=== PATIENT | female | born 1980 | race Caucasian/White ===

== ENCOUNTER 2021-10-07 23:38 | Inpatient (IN) ==
[2021-10-08] MEDS ORDERED: KETOROLAC TROMETHAMINE 60 MG/2 ML VIAL IM STA (00:43)
[2021-10-08 01:34] LABS: Amphetamines+Metham, Urine Pos (Neg); Barbiturates, Urine Neg (Neg); Benzodiazepine, Urine Neg (Neg); Cocaine, Urine Neg (Neg); MDMA (Ecstacy), Urine Neg (Neg); Methadone, Urine Neg (Neg); Opiate, Urine Neg (Neg); Phencyclidine, Urine Neg (Neg)
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
[2021-10-08 02:17] LABS: Appearance Urine Cloudy (Clear); Bacteria Urine Automated Negative (Negative); Blood Urine Negative (Negative); Color Urine Dark Yellow; Epithelial Cell Urine Auto >30 /lpf (0-5); Glucose Urine UA Negative (Negative); Ketones Urine Trace (Negative); Leukocyte Esterase Urine Trace (Negative); Nitrite Urine Negative (Negative); Protein Urine 2+ (Negative); RBC Urine Automated 0-4 /hpf (0-4); Specific Gravity Urine 1.034 (1.000-1.030); Urobilinogen Urine Negative (Negative)
[2021-10-08 02:22] LABS: Bilirubin Urine 1+ (Negative)
[2021-10-08 02:35] LABS: Cast Urine Automated >30 /lpf (0-5)
[2021-10-08] MEDS ORDERED: HYDROmorphone INJ 1 MG/ML SYRINGE IV STA (02:51)
[2021-10-08 03:52] LABS: INR 1.5 (0.9-1.1); Partial Thromboplastin Ratio 1.5; Partial Thromboplastin Time 38.9 Seconds (21.0-31.0)
[2021-10-08 04:08] LABS: Anisocytosis Present; Echinocytes 1+; Eosinophils # (auto) 0.04 K/uL (0-0.5); Eosinophils % (auto) 0.9 %; Hematocrit (blood only) 28.4 % (37-47); Hemoglobin 8.7 g/dL (12.0-16.0); Hypochromasia Present; Immature Granulocytes # (auto) 0.04 K/uL (0.00-0.02); Immature Granulocytes % (auto) 0.9 %; Lymphocytes # (auto) 0.43 K/uL (1.2-3.4); Lymphocytes % (auto) 9.3 %; Mean Corpuscular Hemoglobin 24.2 pg (25-34); Mean Corpuscular Hgb Conc 30.6 g/dL (32-36); Mean Corpuscular Volume 79.1 fL (80-100); Monocytes # (auto) 0.24 K/uL (0.11-0.59); Monocytes % (auto) 5.2 %; Neutrophils # (auto) 3.88 K/uL (1.4-6.5); Neutrophils % (auto) 83.7 %; Platelet Count 18 K/uL (130-400); Platelet Estimate SIGNIFIC DECREASED (Normal); RDW Coefficient of Variation 24.5 % (11.5-14.5); RDW Standard Deviation 70.4 fL (36.4-46.3); Red Blood Count 3.59 M/uL (4.2-5.4); Tear Drop Cells 1+; White Blood Count 4.63 K/uL (4.8-10.8)
[2021-10-08] MEDS ORDERED: VANCOMYCIN CONSULT ACTIVE PRN (04:11)
[2021-10-08] MEDS ORDERED: VANCOMYCIN HCL 2,250 MG in SODIUM CHLORIDE 0.9% 500 ML IV ONE (04:11)
[2021-10-08] MEDS ORDERED: SODIUM CHLORIDE 0.9% 1000ML 1,000 ML IV ONE (04:11)
[2021-10-08 04:12] LABS: Alanine Aminotransferase 14 (12-78); Albumin Globulin Ratio 0.4 (0.9-2); Albumin Level 1.7 gm/dl (3.4-5.0); Alkaline Phosphatase 196 U/L (45-117); Aspartate Aminotransferase 25 U/L (15-37); BUN Creatinine Ratio 23.3 (10-20); Bilirubin,Total 1.1 mg/dl (0.2-1); Blood Urea Nitrogen 35 mg/dl (7-18); Calcium 8.6 mg/dl (8.5-10.1); Carbon Dioxide 21 mmol/L (21-32); Chloride 112 mmol/L (98-107); Creatinine Clr Calc Pharmacy 59.9 ml/min; Est GFR (African American) 50.1 ml/min; Est GFR (Non-African American) 43.2 ml/min; Globulin 4.6 gm/dl (2.5-4.0); Glucose 112 mg/dl (70-99); Magnesium 1.8 mg/dl (1.8-2.4); Potassium 2.4 mmol/L (3.5-5.1); Sodium 140 mmol/L (136-145); Total Protein 6.3 gm/dl (6.4-8.2); Troponin I < 0.015 ng/ml (0-0.045)
[2021-10-08] MEDS: POTASSIUM CHLORIDE / WTR 10 MEQ/100 ML PLCT IV SCH ×6 (04:25→12:59)
[2021-10-08] MEDS ORDERED: ONDANSETRON INJ 2 MG/ML 2 ML VIAL IV PRN (05:14)
[2021-10-08] MEDS ORDERED: ENOXAPARIN INJ 40 MG/0.4 ML SYR SQ SCH (05:14)
[2021-10-08] MEDS ORDERED: NITROGLYCERIN SL 0.4 MG/TAB TAB SL PRN (05:14)
[2021-10-08] MEDS ORDERED: POLYETHYLENE (MIRALAX) 17 GM PACK PO PRN (05:14)
[2021-10-08] MEDS: ceFAZolin 2000MG 2,000 MG/15 ML SYR IV SCH ×3 (06:13→22:24)
[2021-10-08] MEDS: SODIUM CHLORIDE 0.9% 1000ML 1,000 ML IV SCH ×2 (06:17→16:37)
--- NOTE | 2021-10-08 06:23 | Pharmacy Report ---
Pharmacy Abx Initial Consult - Date of Service October 08, 2021 - Pharmacy Dosing Scope Date of Consult: 10/08/21 Consultation requested by: Dr. Chiang Pharmacy is consulted to initiate Vancomycin IV dosing therapy, order appropriate labs and adjust drug dose/frequency. - Subjective The patient is a 40 year old F admitted on 10/08/21 04:39. - Objective Height: 5 ft 9 in Weight: 92.3 kg Vital Signs (Past 12hrs): Vital Signs Temp Pulse Pulse Resp BP BP Pulse Ox 10/08/21 05:56 104 H 93 10/08/21 05:28 107 H 160/85 H 92 10/08/21 04:20 93 10/08/21 03:25 100 H 95 10/08/21 02:30 95 10/08/21 02:05 100 H 95 10/08/21 01:08 13 L 97 10/07/21 23:42 36.8 C 101 H 18 92/58 L 97 Lab Results (24hrs): Laboratory Tests (24 Hours) 10/08/21 10/08/21 10/08/21 03:12 03:12 03:12 WBC 4.63 L Neut # (Auto) 3.88 Creatinine 1.48 H Est Cr Clr Drug Dosing 59.9 Procalcitonin > 200.00 H Micro Results: 10/08/21 03:31 Aerobic Blood Culture - Pending Blood Anaerobic Blood Culture - Pending 10/08/21 03:12 Aerobic Blood Culture - Pending Blood Anaerobic Blood Culture - Pending 10/08/21 Unknown Urine Culture - Pending Urine,Clean Catch - Risk Factors for Resistance * Hospitalization for 48 hours or more within the past 90 days * History of infection with a multidrug-resistant organism: Endocarditis, August 2021, [facility] * Antimicrobial use within the last 90 days - Assessment & Plan Assessment 40 year old F admitted 10/08 for treatment of possible endocarditis. Ordered Cefazolin + Vancomycin. Plan Vancomycin IV * Estimated PK Parameters: Vd 0.7 L/kg, Johny 0.054 hr-1, t1/2 ~13 hr * Loading dose: 2250mg (24 mg/kg) * Maintenance dose: 1500mg IV (16 mg/kg) every 18 hours * Goal trough level for ENDOCARDITIS : 15 to 20 mcg/mL * Trough level ordered for 10/10/21 @ 1130 * Scr is elevated at 1.48, however baseline Scr is unknown. Will monitor and adjust Vancomycin dosing if renal function improves. Pharmacy will continue to follow and will adjust dose/frequency as necessary. Thank you.
[2021-10-08] MEDS ORDERED: POTASSIUM CHLORIDE CRTAB 20 MEQ TABCR PO STA (07:13)
--- NOTE | 2021-10-08 07:39 | XRay Report ---
RIGHT WRIST 4 VIEWS HISTORY: Right wrist pain COMPARISON: None. FINDINGS: There is no fracture or dislocation. Mild soft tissue swelling. No erosive changes. Mild ca rtilage space narrowing at the radiocarpal joint consistent with degenerative change. No radiopaque f oreign bodies. IMPRESSION: Mild soft tissue swelling within the right wrist. No fractures. ACT 112: Negative or not required by law. Electronically signed by: Aaron Ojeda M.D. 10/08/2021 7:37 AM
--- NOTE | 2021-10-08 07:40 | XRay Report ---
XR chest 1V portable HISTORY: SEPSIS COMPARISON: None. FINDINGS: No pneumothorax. No pleural effusions. The heart is normal in size. There are low lung volu mes. There are few scattered patchy and linear airspace opacities within the mid to lower lung zones. IMPRESSION: A few scattered patchy and linear airspace opacities within the mid to lower lung zones. This favors a viral pneumonia. ACT 112: Negative or not required by law. Electronically signed by: Aaron Ojeda M.D. 10/08/2021 7:39 AM
[2021-10-08] MEDS: BUPRENORPHINE/NALOXONE 8/2 MG TAB SL SCH (08:43)
--- NOTE | 2021-10-08 10:01 | History and Physical Report ---
DATE OF ADMISSION: 10/08/2021. CHIEF COMPLAINT: Endocarditis , complaining of generalized pain. 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 The patient was recently in [facility] from 09/12/2021 to 09/20/2021. The patient has COVID pneumonia about couple of months ago. She was presented to [facility] on 08/30/2021 with hemoptysis and shortness of breath and found to have severe sepsis and acute hypoxic respiratory failure requiring supplemental oxygen, found to have pneumonia, she was started on vancomycin and cefepime, which was eventually changed to cefazolin as she was found to have MSSA bacteremia. She developed a tension pneumothorax requiring left chest tube placement on 09/03/2021-09/08/2021, right Chest tube was placed for loculated right effusion (empyema)on 09/08/2010, and she was transferred to [place]. ID was consulted and RODRIGUEZ was done, as patinet had MSSA bacteremia and septic emboli on CT scan. RODRIGUEZ showed a large complex multilobar regurgitation tricuspid wall, CT surgery consulted . Underwent repeat chest tube placed by Thoracic Surgery and right chest tube was pulled off. At that time, blood cultures had no growth. ID recommended IV cefazolin until 10/19/2021, but the patient left AMA. As the patient left A, she was discharged on Keflex and rifampin and she presented to [facility] yesterday because of her back pain and leg pain and chronic pain. The labs done yesterday in [place] showed significant thrombocytopenia, platelets of only 12. Seems she has chronic anemia. She complained of shortness of breath and chest pain, severe body aches, subjective fevers and chills, but as she was not getting pain medications she signed out AMA and daughter brought her in [facility] and left patient here and daughter left. The patient lives with her daughter. The patient complains of chronic pain and asking for pain medications. She is okay to take her home pain medication of Suboxone. She says she has some palpitations, shortness of breath. Denies any headache. No blurred visions, no earache, no runny nose, no sore throat. Appetite is not that great. Currently, no chest pain, no nausea, no abdominal pain, normal bowel and bladder movements. Somewhat constipated. She has chronic wound in lower extremity, dressing is placed in [facility]. As per the [facility], the [place] blood cultures again came back positive for gram-positive cocci in clusters.ER in [place] contacted [place] ID probably before blood cultures and recommended to continue the Ancef and give a dose of vancomycin. Currently hemodynamically stable.Patinet also complaining of right wrist pain. ALLERGIES: TYLENOL, METHADONE. PAST MEDICAL HISTORY: As mentioned above. PAST SURGICAL HISTORY: , repair slipped epiphysis/ fixation. MEDICATIONS: Suboxone 1.5 tablet sublingual daily, rifampin 600 mg p.o. b.i.d., supposed to be on Keflex, but it seems she is not taking it. FAMILY HISTORY: Significant for father has heartburn, hypertension, emphysema. Mother has narcolepsy, hypertension. Maternal grandfather had diabetes, heart disorder, hypertension. Paternal grandmother had hypertension. SOCIAL HISTORY: , currently lives with daughter. Smokes half pack a day for last 13 years. No alcohol use. No drugs currently. The patient has history of IV drugs. PHYSICAL EXAMINATION: GENERAL: The patient is alert and oriented, not complaining of pain. VITAL SIGNS: Temperature 36.8, pulse 104, respiratory rate 18, blood pressure 160/85, oxygen 93% on room air. HEENT: Pupils equal, round and reactive to light. Oral mucosa dry. NECK: No JVD, no neck masses. CARDIOVASCULAR: S1 and S2 heard, regular rate and rhythm. No murmur, no gallop. RESPIRATORY SYSTEM: Normal AP diameter. No accessory muscle use. No wheezing, no crackles. ABDOMEN: Soft, bowel sounds present, nontender, nondistended. CENTRAL NERVOUS SYSTEM: Cranial nerves II-XII grossly intact, nonfocal. EXTREMITIES: Lower extremity wounds are placed in dressing, has erythematous changes in the bilateral upper arms. LABORATORY DATA: WBC 4.6, hemoglobin 8.7, hematocrit 28.4, platelets 218. PT 15, INR 1.5, hematocrit 38.9. Sodium 140, potassium 2.4, chloride 112, CO2 of 21, BUN 35, creatinine 1.4, serum glucose 112. Lactate 1.5, calcium 8.6, magnesium 1.8, total bilirubin 1.1, AST 25, ALT 14, alkaline phosphatase 196. Troponin I less than 0.015. Procalcitonin greater than 200. Urinalysis, ketones. Drug screen positive for methamphetamines, marijuana. SARS-CoV-2 negative. Chest x-ray, bibasilar infiltrates. wrist x-ray results pending. EKG: Sinus tachycardia at a rate of 105, possible left atrial enlargement, right bundle-branch block at a rate of 105. ASSESSMENT AND PLAN: This is a 40-year-old female who recently diagnosed with endocarditis, seems to be noncompliant with medications, comes with shortness of breath and generalized body ache. 1. Recent endocarditis with vegetations of tricuspid valve l, history of IV drug abuse, septic emboli on CAT scan, empyema requiring chest tube recently, signed out AMA from the [facility] on 09/26/2021, supposed to be on IV antibiotics until 10/27/2021, but as she signed out AMA was discharged on Keflex and rifampin. Initially seems did not get rifampin, but then she currently she is taking rifampin. Patientsays she is on Keflex but doubt she is taking it. Now she is having thrombocytopenia, etiology possibly from ongoing infection or possibly from antibiotics, placed on cefazolin and vancomycin. Blood culture drawn again at [facility] showing gram- positive in clusters. ID consulted for antibiotics recommendation, also Cardiology consulted. Closely monitor in the tele floor. 2. Thrombocytopenia, etiology unclear, possibly from antibiotic rifampin, which will be held, currently getting cefazolin and vancomycin. Closely monitor with the labs. May need to discuss with Heme/Onc. 3. Anemia seems to be chronic. Leukopenia, also is something that is new possibly from ongoing infection or antibiotic.. No need to discuss with Heme/Onc. We will check stool for Hemoccult and iron studies, vitamin B12 studies. 4. Hypokalemia. K 2.4 We will replace.Follow reepat labs later today. 5. Acute kidney injury. Creatinine 1.4. Getting fluids, avoid nephrotoxic agents. We will follow the labs. 6. Chronic pain. Continue her home Suboxone. 7. Right upper fore arm and wrist and hand pain. Consulted orthopedics. Follow wrist xray.Consider dopplers. 8. Lower extremity wounds. Wound care consult. Antibiotics as above. Patient says she developed wounds about 3 yrs ago after reaction to calcium supplements. But says she recently only started to see wound care. 9. Deep venous thrombosis prophylaxis. SCDs, patient has thrombocytopenia. DISPOSITION: Closely monitor in tele floor. Level 1 full code. To be determined. Social Service to help with discharge. Job ID: [id number] [facility]
[2021-10-08 10:53] LABS: Reticulocyte % < 0.5 % (0.5-2.0); Reticulocytes # < 0.02 10^6/uL (0.02-0.10)
--- NOTE | 2021-10-08 13:48 | Cardiology Consultation ---
Date of Consultation October 08, 2021 Assessment & Plan (1) Infective endocarditis of tricuspid valve: (2) Pancytopenia: (3) Acute renal insufficiency: (4) Hypokalemia: 40-year-old female with history of tricuspid valve endocarditis with chest and back discomfort. Noncompliant with medical therapies. Pancytopenia possibly related to underlying infectious process or rifampin. Repeat blood culture drawn yesterday demonstrating gram-positive cocci in clusters. Continue antibiotics as per ID recommendations noted below. With recurrent staph bacteremia, patient will require an additional 6 weeks of IV antibiotic therapy. Infectious disease recommendations (Dr. Duncan) per review of [facility] medical record 10/07/2020: Treat with vancomycin and Ancef. With evidence of recurrent likely staph bacteremia. Recommend repeat 2D transthoracic echocardiogram. Consider repeat CT of the chest when renal function has improved. Follow CBC closely. Consider hematology consultation. History of Present Illness Reason for Consultation: Endocarditis Requesting Physician: Dr. Veloz Attending Physician: Jennifer Veloz MD History of Present Illness 40-year-old female present to the emergency department with chest and back pain. Seen at the emergency department in [place] 10/07/2021 for similar complaints. She left AGAINST MEDICAL ADVICE because she felt her pain was not being treated appropriately. She was recently hospitalized in August at [facility] due to tricuspid valve endocarditis. She left [facility] AGAINST MEDICAL ADVICE because she felt she needed to spend the holidays with her family. She was discharged on oral antibiotics. Patient seen and examined at the bedside. Somewhat sedated due to pain medication. She is a poor historian. Treated with IV Toradol and Dilaudid in the ER. Denies any chest or back discomfort currently. CBC on admission demonstrating pancytopenia and severe thrombocytopenia. No signs/symptoms of GI/ bleeding. X-ray demonstrating bilateral linear opacities suggestive of v iral pneumonia. Allergies Allergy/AdvReac Type Severity Reaction Status Date / Time acetaminophen [From Tylenol] AdvReac Intermediate Vomiting Verified 10/08/21 00:08 methadone AdvReac Intermediate Vomiting Verified 10/08/21 00:08 Home Medications Medication Instructions Recorded Confirmed Type buprenorphine 8 mg-naloxone 2 mg 1.5 tab SUBLINGUAL DAILY 10/08/21 10/08/21 History sublingual tablet rifampin 300 mg capsule 600 mg PO Q12H 10/08/21 10/08/21 History Patient History Medical History (Updated 10/12/21 @ 10:23 by Varghese Lin, DO) Chronic pain syndrome History of tobacco abuse IV drug abuse Opioid use disorder Upper extremity pain, diffuse Bilateral Social History Smoking Status: Current every day smoker Cigarettes Per Day: 30; Second Hand Exposure: No; Do You Dip or Chew Tobacco: No; Tobacco Cessation Education Requested by Patient: No Hx Alcohol Use: No Preferred Language: Luxembourgish Communication Ability: Effective [employer] Required: No Beliefs That Will Affect Care: None Current Living Situation: Family Other Information That Helps Us Care for You: No Feels Safe at Home: Yes Safety Concerns: Feels Safe At This Time Assistive Devices: Oxygen - Continuous Review of Systems Review of Systems: All systems reviewed & are unremarkable except as noted in Subjective Physical Exam Constitutional: + ill appearing, + intoxicated appearing and + disheveled Respiratory: normal respiratory effort; no respiratory distress, no labored breathing and no retractions Auscultation: lungs clear to auscultation bilaterally; no crackles, no rales, no rhonchi and no wheezes Cardiovascular: Rate/Rhythm: regular rate and regular rhythm Heart Sounds: normal S1 and normal S2; no murmur Vessels: no JVD and no carotid bruit Gastrointestinal (Abdomen): Inspection/Auscultation: abdomen normal to inspection and normal bowel sounds; abdomen not distended Percussion/Palpation: abdomen soft; abdomen nontender, no guarding and abdomen not rigid Neurologic: moves all extremities; no focal motor deficits Motor/Sensory: no tremor Psychiatric: Affect: + irritable affect Results & Data ([facility]) Vital Signs (Past 12 Hours) Vital Signs Temp Pulse Pulse Resp BP Pulse Ox 10/08/21 12:08 36.8 C 72 18 119/75 98 10/08/21 08:24 36.5 C 98 H 16 103/60 97 10/08/21 07:57 103 H 10/08/21 05:56 104 H 93 10/08/21 05:28 107 H 160/85 H 92 10/08/21 04:20 93 10/08/21 03:25 100 H 95 10/08/21 02:30 95 10/08/21 02:05 100 H 95 Laboratory Results Preliminary blood culture report [facility] 10/07/2021: Gram-positive cocci in clusters Blood culture final report [facility] 09/03/2021: Staph aureus - MSSA Diagnostic Findings Transesophageal echocardiogram [facility] report summary 09/14/2021: The qualitative LV ejection fraction is 60-64% (normal). No LV segmental wall motion abnormalities. A large, complex, multi-lobed vegetation, around 2.2. cm x 2.0 cm in size, with multiple mobile components, seen attached to all tricupid leaflets. Mild to moderate tricuspid regurgitation is present. Study had to be terminated early as patient was unable to tolerate the probe even with adequate sedation. CT chest [facility] report 09/14/21: 1. Small low density probable simple right pleural effusion, decreased in size compared to 09/07/2021. The right pleural catheter is coiled in the right lower lobe adjacent to the pleural effusion. 2. Persistent small left pleural effusion. 3. Similar multifocal cavitary lesions, consistent with extensive bilateral septic emboli.
--- NOTE | 2021-10-08 16:07 | Communication Note ---
Date of Service: October 08, 2021 40-year-old old female with significant past medical history of IV drug abuse, septic embolism with endocarditis, bilateral leg cellulitis with multiple open wounds, history of CVA and also hepatitis C carrier and other medical conditions as mentioned in H&P has been admitted into this hospital with generalized pain. Recently she signed out AMA from [facility] and also latest from [facility]. She is screaming with pain and usual pain medications including ibuprofen, Tylenol and Suboxone that she has been one is not controlling the pain. She has significant lab abnormalities including pancytopenia and severe thrombocytopenia. She will be given intravenous Dilaudid every 6 hourly and pain management consultation will be sought for ongoing management of her chronic pain. Full progress note will be done tomorrow. Dr Armani Veloz
[2021-10-08 16:10] LABS: BUN Creatinine Ratio 21.3 (10-20); Calcium 8.7 mg/dl (8.5-10.1); Creatinine Clr Calc Pharmacy 62.3 ml/min; Est GFR (African American) 49.7 ml/min; Est GFR (Non-African American) 42.9 ml/min; Potassium 3.5 mmol/L (3.5-5.1)
[2021-10-08] MEDS: HYDROmorphone INJ 0.5 MG/0.5 ML SYR IV PRN ×2 (16:35→22:42)
--- NOTE | 2021-10-08 19:20 | Consultation Report ---
ORTHOPEDIC SURGERY CONSULTATION DATE OF SERVICE: 10/08/2021 SPECIAL ATTENTION TO: Bilateral hand pain. HISTORY OF PRESENT ILLNESS: This is a 40-year-old female who was admitted through the Emergency Department. She has a history of intravenous drug use and was seen at [facility] in the past 24 hours. She had a workup, but left AMA because they felt they were not treating her pain appropriately. She has been recently admitted to [facility] in 08/2021 for infectious endocarditis and tricuspid valve vegetation. She left AMA as well there. She has complaints of a global pain in the upper extremities, in the right wrist and left antecubital fossa. PHYSICAL EXAMINATION: Left elbow exam does show evidence of track santacruz and evidence of intravenous drug use. She has no evidence of abscess in the elbow or antecubital fossa. Right forearm exam, compartments are soft Right wrist exam, she has supple range of motion of the wrist without pain or tenderness. She has no swelling or effusion. I do not see gross evidence of infection in the wrist or the flexor tendons. Right hand exam shows erythema at the tips of her fingers. She has no evidence of Janeway lesions, but she does have occasional petechiae in the fingers and Osler nodes in the pulp of the fingers. I did not detect gross evidence of abscess. She has 2+ capillary refill. Left elbow examination shows no evidence of abscess or fluctuance. Left forearm examination, compartments are soft. Left wrist exam shows no evidence of septic wrist. She has supple range of motion of the wrist without swelling or effusion. Left hand exam does show mild erythema of the digits. Occasional Osler nodes and petechiae are seen consistent with infectious endocarditis. X RAYS: 3 views of the right wrist are negative for fracture, dislocation, infection, gas in the soft tissue and other pathology. ASSESSMENT: Diffuse upper extremity pain, likely due to infectious endocarditis. PLAN: Physical findings are consistent with infectious endocarditis with petechiae and Osler nodes in the fingers. I do not see any acute surgical indications and I feel it is unlikely she has acute infection in the hand, wrist, or forearm requiring any urgent surgical intervention. Recommendation is for continued treatment for infectious endocarditis. We will sign off. Please call if you have any further questions or concerns. Job ID: [id number] [facility]
[2021-10-08] MEDS: DICLOFENAC SOD 1% GEL 100 GM TUBE EXT SCH (20:05)
[2021-10-09] MEDS ORDERED: VANCOMYCIN HCL 1,500 MG in SODIUM CHLORIDE 0.9% 500 ML IV SCH
[2021-10-09] MEDS: ceFAZolin 2000MG 2,000 MG/15 ML SYR IV SCH ×3 (05:38→21:32)
--- NOTE | 2021-10-09 06:01 | Electrocardiogram Report ---
Test Reason : Blood Pressure : / mmHG Vent. Rate : 105 BPM Atrial Rate : 105 BPM P-R Int : 148 ms QRS Dur : 136 ms QT Int : 402 ms P-R-T Axes : 067 -34 092 degrees QTc Int : 531 ms Poor data quality, interpretation may be adversely affected Sinus tachycardia Possible Left atrial enlargement Indeterminate axis Right bundle branch block Abnormal ECG No previous ECGs available Confirmed by Shaheen Lora ([id number]) on 10/09/2021 6:01:07 AM Referred By: REFERRED SELF Confirmed By:Shaheen Lora
[2021-10-09] MEDS: HYDROmorphone INJ 0.5 MG/0.5 ML SYR IV PRN ×3 (06:21→23:59)
--- NOTE | 2021-10-09 07:19 | Ultrasound Report ---
BILATERAL LOWER EXTREMITY VENOUS DOPPLER CLINICAL HISTORY: Lower extremity edema. Evaluate for deep venous thrombus. COMPARISON STUDY: No previous studies for comparison. TECHNIQUE: Sonography of the deep venous system of the bilateral lower extremities was performed. Co mpression and augmentation were evaluated. FINDINGS: This exam is compromised by suboptimal visualization due to wounds. Therefore, the right co mmon femoral, greater saphenous, profunda and distal calf vessels are not well visualized. In additio n, the left calf vessels were not well visualized. No deep venous thrombus is identified within visua lized vessels. IMPRESSION: Exam significantly compromised from a technical standpoint. However, no deep venous throm bus identified within the lower extremities. ACT 112: Negative or not required by law. Electronically signed by: Rayray Jamison M.D. 10/09/2021 7:18 AM
[2021-10-09 08:22] LABS: Mean Corpuscular Hemoglobin 23.8 pg (25-34); Mean Corpuscular Volume 77.4 fL (80-100); Platelet Count 24 K/uL (130-400); RDW Coefficient of Variation 25.2 % (11.5-14.5); RDW Standard Deviation 70.7 fL (36.4-46.3); Red Blood Count 3.36 M/uL (4.2-5.4)
[2021-10-09 08:44] LABS: ALC (manual) 0.31 K/uL (1.2-3.4); ANC (manual) 8.65 K/uL (1.4-6.5); Eosinophils # (manual) 0.21 K/uL (0-0.5); Lymphocytes # (manual) 0.31 K/uL (1.2-3.4); Mean Corpuscular Hgb Conc 30.8 g/dL (32-36); Metamyelocytes # (manual) 0.21 K/uL (0-0); Monocytes # (manual) 0.62 K/uL (0.11-0.59); Myelocytes # (manual) 0.31 K/uL (0-0); Neutrophils # (manual) 8.65 K/uL (1.4-6.5)
[2021-10-09] MEDS: BUPRENORPHINE/NALOXONE 8/2 MG TAB SL SCH (08:58)
[2021-10-09] MEDS: DICLOFENAC SOD 1% GEL 100 GM TUBE EXT SCH ×2 (08:59→21:31)
[2021-10-09 09:18] LABS: INR 1.3 (0.9-1.1); Prothrombin Time 12.6 Seconds (9.0-12.0)
[2021-10-09 09:18] LABS: Folate (Folic Acid) > 20.00 ng/ml (>5.38); Vitamin B12 > 2000 pg/ml (193-986)
[2021-10-09 09:33] LABS: Albumin Globulin Ratio 0.3 (0.9-2); Albumin Level 1.7 gm/dl (3.4-5.0); BUN Creatinine Ratio 27.9 (10-20); Bilirubin,Total 0.8 mg/dl (0.2-1); Calcium 8.9 mg/dl (8.5-10.1); Est GFR (African American) 102.3 ml/min; Est GFR (Non-African American) 88.3 ml/min; Ferritin 515.6 ng/ml (8-388); Magnesium 2.1 mg/dl (1.8-2.4); Phosphorus 3.2 mg/dl (2.5-4.9); Total Protein 6.7 gm/dl (6.4-8.2)
--- NOTE | 2021-10-09 09:57 | Pain Management Consultation ---
Date of Consultation October 09, 2021 Assessment & Plan (1) Chronic pain syndrome: (2) Opioid use disorder: (3) Infective endocarditis of tricuspid valve: (4) Upper extremity pain, diffuse: 1. PDMP was reviewed and shows 1 prescriber with varying amount of Suboxone tablets over the last few months and 1 consistent pharmacy. Recommend she follow-up with her Suboxone prescriber as an outpatient once discharged. 2. Recommend increasing Suboxone 8/2 to 2 tablets daily. 3. Recommend utilization of Remeron 15 mg p.o. q. at bedtime and clonidine 0.1 mg p.o. every 8 as needed. 4. Recommend Lidoderm patch as needed patient desire over 1-2 areas of discomfort. 5. No plans for interventional pain management at this time. 6. The patient's orthopedic complaints have already been assessed by orthopedics and would defer to them for further work-up if required. 7. Thank you for this consultation please call with any questions. Pain management will sign off. History of Present Illness Attending Physician: Jennifer Veloz MD History of Present Illness 40-year-old female with a past medical history significant for recent septic embolism with endocarditis of tricuspid valve, cellulitis of leg with multiple open wounds on the lower legs, history of CVA, sepsis, hepatitis C carrier, opioid abuse in remission presented to the hospital yesterday 10/08/2021 after her daughter dropped her off in the emergency room. The patient states that she has had significant pain (10 out of 10) over bilateral shoulders to her fingertips for the last week. She denies trauma as to etiology. She denies denies any true radicular symptoms or neck pain. She states simply " it feels like my arms are being pulled apart." She has unable to quantify pain further than that. She denies any dropping of items motor weakness bowel or bladder incontinence or falls. She has been admitted at [facility] in [place] recently as per H&P. She typically follows with [facility] for Suboxone and has been on 1-1/2 tablets but states she has not followed up with her typical physician recently due to being admitted and multiple different hospitals. PDMP was reviewed and appears she has consistent prescriber with varying amounts of tablets of Suboxone 8/2 tablets. She has been consistently utilizing her IV hydromorphone during the hospitalization without benefit. Pain Assessment Full Body Front + Back: 1. 2. [facility] Combined Pain Scale: 10-Worst Imaginable - Paralyzing. Decreased consciousness due to pain. Allergies Allergy/AdvReac Type Severity Reaction Status Date / Time acetaminophen [From Tylenol] AdvReac Intermediate Vomiting Verified 10/08/21 00:08 methadone AdvReac Intermediate Vomiting Verified 10/08/21 00:08 Home Medications Medication Instructions Recorded Confirmed Type buprenorphine 8 mg-naloxone 2 mg 1.5 tab SUBLINGUAL DAILY 10/08/21 10/08/21 History sublingual tablet rifampin 300 mg capsule 600 mg PO Q12H 10/08/21 10/08/21 History Patient History Medical History (Updated 10/09/21 @ 10:09 by Milagro Kathleen DO) Chronic pain syndrome IV drug abuse Opioid use disorder Upper extremity pain, diffuse Bilateral Social History Smoking Status: Current every day smoker Cigarettes Per Day: 30; Second Hand Exposure: No; Do You Dip or Chew Tobacco: No; Tobacco Cessation Education Requested by Patient: No Hx Alcohol Use: No Preferred Language: Syriac Communication Ability: Effective Nuisance Wildlife Specialist Required: No Beliefs That Will Affect Care: None Current Living Situation: Family Other Information That Helps Us Care for You: No Feels Safe at Home: Yes Safety Concerns: Feels Safe At This Time Assistive Devices: None Physical Exam Physical Exam: Constitutional: Well-developed, ill-appearing, deconditioned Psych: Awake, alert, and oriented 3 irritable on examination and slightly uncooperative with exam Eyes: Pupils are equally round and reactive to light with slightly constricted pupils approximately 3 mm, eyelids appear normal Ear, nose, mouth, and throat: Moist nasal and oral membranes, lips and tongues appear normal, no external ear abnormalities are noted Neck: The trachea is midline without deviation Respiratory: Tachypneic on examination CV: Normal S1 and S2 Musculoskeletal: Head is normocephalic and atraumatic, gait not observed Cervical: Lordotic curve: Normal Range of motion is normal with extension, flexion, side-bending, rotation Strength: Strength is difficult to assess secondary to patient cooperation Sensation of upper extremities: Intact bilaterally Myofascial spasm: No appreciable spasm. No discrete trigger points noted Skin: Multiple track santacruz noted over bilateral upper extremities with some edema noted Neuro: No nystagmus noted, the tongue is midline, the patient is able to rotate their head bilaterally Shoulder: Patient with significant allodynia to light touch even with light touch of her gown. She retracts bilateral upper extremities when approaching her upper arms. She states she is not willing to move her bilateral upper extremities therefore range of motion is difficult to assess. Upon palpation bilateral upper extremities are soft. She is agreeable to move her arms from her elbows to her fingertips. This is within normal limits. Results (Pain Clinic) Diagnostic Review Radiology: reports reviewed and findings discussed with patient Radiology Findings: 10/08/21 RIGHT WRIST 4 VIEWS HISTORY: Right wrist pain COMPARISON: None. FINDINGS: There is no fracture or dislocation. Mild soft tissue swelling. No erosive changes. Mild cartilage space narrowing at the radiocarpal joint consistent with degenerative change. No radiopaque foreign bodies. IMPRESSION: Mild soft tissue swelling within the right wrist. No fractures. 10/08/21 XR chest 1V portable HISTORY: SEPSIS COMPARISON: None. FINDINGS: No pneumothorax. No pleural effusions. The heart is normal in size. There are low lung volumes. There are few scattered patchy and linear airspace opacities within the mid to lower lung zones. IMPRESSION: A few scattered patchy and linear airspace opacities within the mid to lower lung zones. This favors a viral pneumonia. Other Findings: 10/08/21 BILATERAL LOWER EXTREMITY VENOUS DOPPLER CLINICAL HISTORY: Lower extremity edema. Evaluate for deep venous thrombus. COMPARISON STUDY: No previous studies for comparison. TECHNIQUE: Sonography of the deep venous system of the bilateral lower extremities was performed. Compression and augmentation were evaluated. FINDINGS: This exam is compromised by suboptimal visualization due to wounds. Therefore, the right common femoral, greater saphenous, profunda and distal calf vessels are not well visualized. In addition, the left calf vessels were not well visualized. No deep venous thrombus is identified within visualized vessels. IMPRESSION: Exam significantly compromised from a technical standpoint. However, no deep venous thrombus identified within the lower extremities.
[2021-10-09] MEDS: LIDOCAINE 5% 1 PATCH TD SCH (12:06)
--- NOTE | 2021-10-09 12:45 | Cardiology Progress Note ---
Date of Service October 09, 2021 Assessment & Plan (1) Infective endocarditis of tricuspid valve: (2) Pancytopenia: (3) Acute renal insufficiency: (4) Hypokalemia: Plan: 40-year-old female with history of tricuspid valve endocarditis with chest and back discomfort. Noncompliant with medical therapies. In August, she presented to [facility] and was transferred to [facility]. watermaster IV antibiotic therapy advised at that time for MSSA TV endocarditis. Pt declined leaving hospital AMA on Keflex and rifampin. Prelim of repeat blood cultur performed in ED at [place] on 10/07/21 reviewed, still in preliminary phase by with findings of GPCs in clusters. Agree with IV ancef. Images of TTE performed at [place] on 10/08/21 reviewed and compared to [facility] from [facility] last month. TV vegetation appears to be smaller on current study (perhaps due to septic embolism to lungs). Pancytopenia including thrombycytopenia noted, possibly related to underlying infectious process or rifampin. Platelet count was normal on 09/07/21 (213 k) , 12K on 10/07/21 and 24 K today, 10/09/21. Admission and Anticipated Discharge Date Admission Date: October 08, 2021 Subjective Pt seen in cardiology follow up. Complains of diffuse body pain. Telemetry reveals sinus tachycardia at 116 pbm. Physical Exam Physical Exam: Temp Pulse Resp BP Pulse Ox 37.1 C 110 H 22 138/83 90 10/09/21 12:21 10/09/21 12:21 10/09/21 12:21 10/09/21 12:21 10/09/21 12:21 Constitutional: chronically ill in appearance Respiratory: decreased BS at the bases Cardiovascular: Rate/Rhythm: regular rate and + tachycardic Heart Sounds: no murmur Extremities: + edema (1+ LE edema ) Musculoskeletal: bilateral LE wounds below the knees, dressed Neurologic: no focal deficits Results & Data ([facility]) Vital Signs (Past 12 Hours) Vital Signs Temp Pulse Resp BP Pulse Ox 10/09/21 12:21 37.1 C 110 H 22 138/83 90 10/09/21 08:19 37.0 C 110 H 24 145/69 H 91 10/09/21 04:33 37.1 C 113 H 20 132/74 92 Laboratory Results Cardiac Enzymes 10/09/21 Range/Units 08:07 AST 26 (15-37) U/L Coagulation 10/09/21 Range/Units 08:43 PT 12.6 H (9.0-12.0) Seconds CBC 10/09/21 Range/Units 08:07 WBC 10.30 (4.8-10.8) K/uL RBC 3.36 L (4.2-5.4) M/uL Hgb 8.0 L (12.0-16.0) g/dL Hct 26.0 L (37-47) % Plt Count 24 L* (130-400) K/uL Comprehensive Metabolic Panel 10/08/21 10/09/21 Range/Units 15:44 08:07 Sodium 140 141 (136-145) mmol/L Potassium 3.5 D 3.0 L (3.5-5.1) mmol/L Chloride 111 H 113 H (98-107) mmol/L Carbon Dioxide 18 L 17 L (21-32) mmol/L BUN 32 H 23 H (7-18) mg/dl Creatinine 1.49 H 0.82 D (0.6-1.2) mg/dl Glucose 126 H 102 H (70-99) mg/dl Calcium 8.7 8.9 (8.5-10.1) mg/dl AST 26 (15-37) U/L ALT 8 L (12-78) Alkaline Phosphatase 196 H (45-117) U/L Total Protein 6.7 (6.4-8.2) gm/dl Albumin 1.7 L (3.4-5.0) gm/dl Intake and Output 10/08/21 10/09/21 10/09/21 22:59 06:59 14:59 Intake Total 1500 / 4495 1930 / 4495 Output Total 550 / 1250 700 / 1250 Balance 950 / 3245 1230 / 3245 Intake: IV 1000 / 3475 1530 / 3475 Sodium Chloride 0.9% 1000ML 1, 1000 / 2000 1000 / 2000 000 ml @ 100 mls/hr IV .Q10H [facility] Rx#:[id number] Vancomycin HCl 1,500 mg In 530 / 530 Sodium Chloride 0.9% 500 ml @ 200 mls/hr IV Q18H [facility] Rx#: [id number] Oral 500 / 1020 400 / 1020 Output: Urine 550 / 1250 700 / 1250 Other: Weight 91.03 kg 92.4 kg Weight Measurement Method Built in [facility]
--- NOTE | 2021-10-09 13:06 | CT Scan Report ---
CT OF THE ABDOMEN AND PELVIS WITHOUT CONTRAST CLINICAL HISTORY: Extremity pain. Infectious endocarditis. COMPARISON STUDY: No previous studies for comparison. TECHNIQUE: Axial images of the abdomen and pelvis were obtained without IV contrast. Images were revi ewed in the axial, sagittal, and coronal planes. Automated exposure control was utilized for the amada dy. A dose lowering technique was utilized adhering to the principles of ALARA. FINDINGS: Small bilateral pleural effusions are noted. Note is made of multifocal groundglass opaciti es within visualized portions of the lower lungs. In addition, there are several nodular subpleural o pacities, the largest which is a 3.3 cm right lower lobe opacity. Evaluation of the abdomen and pelvis is suboptimal on this unenhanced examination. There is body wall edema. Moderate splenomegaly is noted. The liver is also enlarged. No hepatic lesions are identified although sensitivity is diminished on this unenhanced exam. Unenhanced images of the adrenal glands, kidneys and pancreas are unremarkable. There is no biliary or pancreatic ductal dilatation. No hydro nephrosis. There is no evidence for a bowel obstruction. The appendix is normal. Prominent bilateral inguinal lymph nodes are likely reactive. Asymmetric soft tissue thickening along the posterior aspec t of the right ischial tuberosity shown on axial image 495 of 531. This measures 4.3 cm in extent. Th is extends to the underlying bone. No bony destruction is identified by CT. No well-defined fluid col lection is identified although sensitivity is diminished on this unenhanced exam. Note is made of tra nsitional vertebra at the lumbosacral junction which is designated as S1 for purposes of numbering on this exam. S1 is partially lumbarized. When utilizing this numbering scheme, there is moderate to se jose disc space narrowing at L5-S1 with erosion of the inferior endplate of L5 and superior endplate of S1. There is associated paravertebral infiltration. The central canal is suboptimally assessed by CT. Postoperative findings within the proximal bilateral femurs are incidentally noted IMPRESSION: 1. Disc space narrowing at L5-S1 with erosion of the inferior endplate of L5 and superior endplate of S1. The findings are highly suggestive of discitis/osteomyelitis. Associated paravertebral infiltrat ion. MRI of the lumbar spine with and without contrast is recommended to exclude an epidural abscess. This finding will be called/faxed to the ordering provider at time of dictation. Transitional verteb ra at the lumbosacral junction which is designated as S1 for purposes of numbering on this exam. Plea se see above numbering scheme of the lumbar spine. 2. Asymmetric soft tissue thickening along the posterior aspect the right ischial tuberosity which ex tends to the underlying bone. No well-defined fluid collection although sensitivity diminished on thi s unenhanced exam. This favors an infectious process and may reflect phlegmon. No bony destruction by CT. This could be correlated with physical exam to exclude overlying ulcer. 3. Multifocal airspace opacities within the lower lungs. The findings represent an infectious process and could represent viral pneumonia or sequela of septic emboli. 4. Small bilateral pleural effusions. 5. Hepatosplenomegaly. 6. Suboptimal evaluation given motion artifact and lack of IV contrast. ACT 112: Negative or not required by law. Electronically signed by: Rayray Jamison M.D. 10/09/2021 1:04 PM
--- NOTE | 2021-10-09 14:28 | Electrocardiogram Report ---
Test Reason : Blood Pressure : / mmHG Vent. Rate : 106 BPM Atrial Rate : 106 BPM P-R Int : 162 ms QRS Dur : 136 ms QT Int : 362 ms P-R-T Axes : 058 115 091 degrees QTc Int : 480 ms Sinus tachycardia Right bundle branch block Abnormal ECG When compared with ECG of 08-OCT-2021 02:52, No significant change Confirmed by Ubaldo Hanna ([id number]) on 10/09/2021 2:28:34 PM Referred By: REFERRED SELF Confirmed By:Ubaldo Hanna
--- NOTE | 2021-10-09 16:09 | Hospitalist Progress Note ---
Date of Service October 09, 2021 Assessment & Plan (1) Infective endocarditis of tricuspid valve: Plan: Initial diagnosis of MSSA bacteremia on 08/30/2021 with complications of pneumonia required chest tube placement She was transferred to [place] from [facility] and later on [facility] showed large complex multilobar vegetations and tricuspid valve. She was put on intravenous cefazolin (to be taken until 10/19/2021) but signed out AMA and was sent on oral Keflex and rifampicin She showed up in [facility] and signed out AMA to come to [facility] on the day of admission with significant lab abnormalities as mentioned below Started with intravenous cefazolin and vancomycin Blood cultures grew MSSA and vancomycin was stopped ID consultation still pending Appreciate cardiology consult and recommendation She remains reasonably stable Septic emboli Lower lungs with minimal effusion We will continue current antibiotic (2) Pancytopenia: Plan: She was noted to have significant thrombocytopenia since August and noted to be severely thrombocytopenic with pancytopenia during this admission and the lowest her hospital Peripheral blood film did not support any specific diagnosis Suspected to be secondary to severe infection and may be complicated by having hepatitis C and recent use of rifampicin White blood cell count and platelet have been improving but hemoglobin remains low likely secondary to ongoing infection Iron studies are pending and B12 folate remains unremarkable, normal reticulocyte count and normal LDH Discussed with cord tire builder-suggested to have abdominal CAT scan to rule out any splenomegaly and abscess Likely has discitis/osteomyelitis with possible epidural abscess at L5-S1 distribution CT scan of the abdomen and pelvis is supporting that Did show hepatosplenomegaly MRI of the lumbar spine with and without contrast has been ordered to evaluate epidural abscess Orthospine has been consulted for further input and recommendation (3) Chronic pain syndrome: Plan: Has chronic pain and has been on Suboxone Complains to pain at the back, bilateral in the hands with hand swelling and bilaterally in the legs Appreciate Ortho input and recommendation for hand swelling and pain Appreciate pain therapy input and recommendation Suboxone doses have been increased (4) Opioid use disorder: Plan: History of intravenous opioid abuse She mentioned that she took last time about in August (5) Upper extremity pain, diffuse: Plan: Due to swelling of both the hands Advised to elevate the hands (6) Disorder of electrolytes: Plan: Noted to have severe hypokalemia Will be replaced and monitored (7) Hepatitis C carrier: Plan: History of hepatitis C carrier Liver function is abnormal INR and PTT are high Alkaline phos is borderline high Hepatitis C viral load has been pending DVT prophylaxis No pharmacologic anticoagulation due to very low platelet SCDs CODE STATUS Full Admission and Anticipated Discharge Date Admission Date: October 08, 2021 Subjective 10/09/2021 The patient was seen and examined in telemetry unit He complains to have generalized pain. Pain in the hands, Legs and back Denies any chest pain and/or palpitations Denies any shortness of breath Review of Systems Review of Systems: All systems reviewed and are unremarkable except as noted below Constitutional: Generally weak and lethargic Respiratory: No shortness of breath at rest Musculoskeletal: Generalized pain, pain in the hands and leg. Back pain with radiation Physical Exam Physical Exam: Lying in bed with moderate distress Constitutional: + ill appearing and average body habitus Eyes: PERRL, conjunctivae normal, anicteric sclerae Neck: trachea midline, no thyromegaly Respiratory: + respiratory distress (Minimal distress at rest) Auscultation: + diminished lung sounds (At the bases) Cardiovascular: Rate/Rhythm: regular rate, regular rhythm and + tachycardic Heart Sounds: normal S1 and normal S2; no murmur Extremities: + edema (1+edema bilaterally.Bilateral leg wounds which are bandaged from below knee) Gastrointestinal (Abdomen): Inspection/Auscultation: normal bowel sounds; abdomen not distended Percussion/Palpation: abdomen soft; abdomen nontender Musculoskeletal: Extremities: + hand abnormality (Swelling of the hands and forearms) Bilateral and + lower extremity abnormal to inspection (Bilateral leg wounds. Dressed below the knee) Bilateral Neurologic: Alert, awake and oriented x3. Generally weak and lethargic Lymphatic: no cervical or axillary lymphadenopathy Results & Data Results & Data ([facility]) Vital Signs (Past 12 Hours) Vital Signs Temp Pulse Resp BP Pulse Ox 10/09/21 12:21 37.1 C 110 H 22 138/83 90 10/09/21 08:19 37.0 C 110 H 24 145/69 H 91 10/09/21 04:33 37.1 C 113 H 20 132/74 92 Laboratory Results Short CBC 10/09/21 Range/Units 08:07 WBC 10.30 (4.8-10.8) K/uL Hgb 8.0 L (12.0-16.0) g/dL Hct 26.0 L (37-47) % Plt Count 24 L* (130-400) K/uL BMP 10/08/21 10/09/21 15:44 08:07 Sodium 140 141 Potassium 3.5 D 3.0 L Chloride 111 H 113 H Carbon Dioxide 18 L 17 L BUN 32 H 23 H Creatinine 1.49 H 0.82 D Glucose 126 H 102 H Calcium 8.7 8.9 Liver Function 10/09/21 Range/Units 08:07 Total Bilirubin 0.8 (0.2-1) mg/dl AST 26 (15-37) U/L ALT 8 L (12-78) Alkaline Phosphatase 196 H (45-117) U/L Albumin 1.7 L (3.4-5.0) gm/dl Medications Administered Current Inpatient Medications Acetaminophen (Acetaminophen 325 Mg Tab) 650 mg PO Q4H PRN PRN Reason: Pain or Fever Stop: 11/07/21 05:13 Buprenorphine/Naloxone (Buprenorphine/Naloxone 8/2 Mg Tab) 2 tab SL DAILY [facility] Stop: 11/09/21 08:59 Clonidine HCl (Clonidine Hcl 0.1 Mg Tab) 0.1 mg PO Q8H PRN PRN Reason: agitation/withdrawal symptoms Stop: 11/08/21 09:53 Diclofenac Sodium (Diclofenac Sod 1% Gel 100 Gm Tube) 2 gm EXT BID [facility] Stop: 11/07/21 20:59 Last Admin: 10/09/21 08:59 Dose: 2 gm Documented by: Hydromorphone HCl (Hydromorphone Inj 0.5 Mg/0.5 Ml Syr) 0.5 mg IV Q8H PRN PRN Reason: Pain Stop: 10/22/21 15:02 Last Admin: 10/09/21 15:27 Dose: 0.5 mg Documented by: Cefazolin Sodium (Ancef 2000mg) 2,000 mg in 15 mls @ 3.75 mls/min IV Q8H [facility] Stop: 11/19/21 05:59 Last Admin: 10/09/21 15:23 Dose: 3.75 mls/min Documented by: Potassium Chloride/Sodium Chloride (Normal Saline W/20 Meq Kcl) 20 meq in 1,000 mls @ 125 mls/hr IV .Q8H [facility]; Protocol Stop: 11/08/21 15:29 Lidocaine (Lidocaine 5% 1 Patch) 2 patch TD QAM [facility] Stop: 11/08/21 09:59 Last Admin: 10/09/21 12:06 Dose: 2 patch Documented by: Mirtazapine (Mirtazapine Tab 15 Mg Tab) 15 mg PO HS [facility] Stop: 11/08/21 20:59 Miscellaneous (Remove Lidoderm Patch) 1 ea N/A DAILY@2100 [facility] Stop: 11/08/21 20:59 Nitroglycerin (Nitroglycerin Sl 0.4 Mg/Tab Tab) 0.4 mg SL UD PRN PRN Reason: Chest Pain Stop: 11/07/21 05:13 Ondansetron HCl (Ondansetron Inj 2 Mg/Ml 2 Ml Vial) 4 mg IV Q6H PRN PRN Reason: Nausea Stop: 11/07/21 05:13 Polyethylene Glycol (Polyethylene (Miralax) 17 Gm Pack) 17 gm PO DAILY PRN PRN Reason: Constipation Stop: 11/07/21 05:13
[2021-10-09] MEDS ORDERED: GADOBUTROL 65ML VIAL IV ONE (16:44)
[2021-10-09] MEDS: NSS + 20MEQ KCL 20 MEQ/1,000 ML BAG IV SCH (16:59)
[2021-10-09] MEDS: cloNIDine HCL 0.1 MG TAB PO PRN (17:38)
--- NOTE | 2021-10-09 17:40 | Magnetic Resonance Report ---
MR lumbar spine wo/w con CLINICAL HISTORY: Chronic back pain with increased low back pain for 9 days. History of IV drug abus e. Evaluate for epidural abscess.. TECHNIQUE: Multiplanar multisequence images of the Lumbar Spine were performed with and without IV c ontrast. Contrast Volume: 9.2 ml of Gadavist COMPARISON: None. FINDINGS: There is evidence for acute discitis at the L4-5 disc space level with abnormal increased s ignal seen on T2-weighted sequences. This material protrudes into the spinal canal posteriorly. There is adjacent marrow edema of the L4 and L5 vertebral bodies representing the presence of osteomyeliti s. Additionally, there is an epidural abscess posteriorly extending from L4 through L5 for a distance of 5 cm. It extends into the spinal canal greater to the right side by 10 mm. There is compression u murray the thecal sac by at least one third. There is diffuse enhancement of the disc space, the vertebr al bodies and the epidural abscess following contrast administration. There is no evidence for vertebral body fracture. The heights of the vertebral bodies are maintained. The vertebral bodies are in anatomic alignment. Homogeneous marrow signal is seen within the remaind er of the lumbar spine without evidence for marrow edema or marrow replacement. The remaining disc space levels are within normal limits. There is no other evidence for discitis or osteomyelitis. There is no gross disc protrusion/herniation present. IMPRESSION: Positive MRI demonstrating acute discitis at L4-5 with osteomyelitis of the adjacent L4 a nd L5 vertebral bodies. Additionally, there is an epidural abscess posterior to the L4 and L5 vertebr al bodies encroaching upon the thecal sac as described above. The ordering physician was called directly with the results of this study at the time of this dictati on. ACT 112: Negative or not required by law. Electronically signed by: Surendra Brown M.D. 10/09/2021 5:38 PM
[2021-10-09] MEDS: MIRTAZAPINE TAB 15 MG TAB PO SCH (21:53)
[2021-10-10] MEDS: NSS + 20MEQ KCL 20 MEQ/1,000 ML BAG IV SCH ×2 (01:30→09:18)
[2021-10-10] MEDS: cloNIDine HCL 0.1 MG TAB PO PRN ×2 (05:38→19:48)
[2021-10-10] MEDS: ceFAZolin 2000MG 2,000 MG/15 ML SYR IV SCH ×3 (05:38→22:58)
[2021-10-10 07:32] LABS: Hematocrit (blood only) 24.7 % (37-47); Hemoglobin 7.6 g/dL (12.0-16.0); Mean Corpuscular Volume 77.9 fL (80-100); Platelet Count 33 K/uL (130-400); RDW Standard Deviation 71.4 fL (36.4-46.3); Red Blood Count 3.17 M/uL (4.2-5.4); White Blood Count 13.28 K/uL (4.8-10.8)
[2021-10-10 07:42] LABS: Mean Corpuscular Hgb Conc 30.8 g/dL (32-36)
[2021-10-10 07:59] LABS: ANC (manual) 11.95 K/uL (1.4-6.5); Anisocytosis Present; Metamyelocytes # (manual) 0.27 K/uL (0-0); Monocytes # (manual) 0.27 K/uL (0.11-0.59); Neutrophils # (manual) 11.95 K/uL (1.4-6.5); Platelet Estimate SIGNIFIC DECREASED (Normal); Target Cells 1+
[2021-10-10] MEDS: LIDOCAINE 5% 1 PATCH TD SCH (08:01)
[2021-10-10] MEDS: DICLOFENAC SOD 1% GEL 100 GM TUBE EXT SCH ×2 (08:01→19:46)
[2021-10-10 08:04] LABS: Alanine Aminotransferase < 6 (12-78); Albumin Globulin Ratio 0.3 (0.9-2); Albumin Level 1.5 gm/dl (3.4-5.0); Alkaline Phosphatase 151 U/L (45-117); Aspartate Aminotransferase 17 U/L (15-37); BUN Creatinine Ratio 22.5 (10-20); Bilirubin,Total 0.5 mg/dl (0.2-1); Blood Urea Nitrogen 14 mg/dl (7-18); Calcium 8.9 mg/dl (8.5-10.1); Carbon Dioxide 24 mmol/L (21-32); Chloride 108 mmol/L (98-107); Creatinine Clr Calc Pharmacy 149.4 ml/min; Est GFR (African American) 128.2 ml/min; Est GFR (Non-African American) 110.6 ml/min; Globulin 4.9 gm/dl (2.5-4.0); Glucose 111 mg/dl (70-99); Potassium 2.8 mmol/L (3.5-5.1); Sodium 139 mmol/L (136-145); Total Protein 6.4 gm/dl (6.4-8.2)
[2021-10-10] MEDS: BUPRENORPHINE/NALOXONE 8/2 MG TAB SL SCH (08:09)
--- NOTE | 2021-10-10 08:34 | Orthopedic Consultation ---
Date of Consultation October 10, 2021 Assessment & Plan (1) Osteomyelitis of lumbar spine: Patient does demonstrate evidence of osteomyelitis discitis at L4-5 with epidural abscess. There is some evidence of neural encroachment. Is my recommendation that patient be transferred to a tertiary care center. This is beyond her ability to manage at her institution. History of Present Illness Reason for Consultation: Back pain Attending Physician: Jennifer Veloz MD History of Present Illness This is a 40-year-old female with multiple medical issues history of known IV drug abuse. Been consulted regarding osteomyelitis discitis lumbar spine epidural abscess. Upon my visit with the patient today this morning she is undergoing a breathing treatment. I was unable to arouse her. Allergies Allergy/AdvReac Type Severity Reaction Status Date / Time acetaminophen [From Tylenol] AdvReac Intermediate Vomiting Verified 10/08/21 00:08 methadone AdvReac Intermediate Vomiting Verified 10/08/21 00:08 Home Medications Medication Instructions Recorded Confirmed Type buprenorphine 8 mg-naloxone 2 mg 1.5 tab SUBLINGUAL DAILY 10/08/21 10/08/21 History sublingual tablet rifampin 300 mg capsule 600 mg PO Q12H 10/08/21 10/08/21 History Patient History Medical History (Updated 10/10/21 @ 08:33 by Alfredo Cardoza DO) Chronic pain syndrome IV drug abuse Opioid use disorder Upper extremity pain, diffuse Bilateral Social History Smoking Status: Current every day smoker Cigarettes Per Day: 30; Second Hand Exposure: No; Do You Dip or Chew Tobacco: No; Tobacco Cessation Education Requested by Patient: No Hx Alcohol Use: No Preferred Language: Filipino Communication Ability: Effective Document Reviewer Required: No Beliefs That Will Affect Care: None Current Living Situation: Family Other Information That Helps Us Care for You: No Feels Safe at Home: Yes Safety Concerns: Feels Safe At This Time Assistive Devices: Oxygen - Continuous Results & Data ([facility]) Vital Signs (Past 12 Hours) Vital Signs Temp Pulse Pulse Resp BP Pulse Ox 10/10/21 08:18 36.7 C 62 18 144/62 H 98 10/10/21 03:41 36.7 C 106 H 20 137/84 95 10/09/21 23:59 111 H 10/09/21 22:59 37.0 C 114 H 20 137/74 89 L 10/09/21 22:56 111 H
[2021-10-10] MEDS ORDERED: FUROSEMIDE 40 MG/4 ML VIAL IV ONE ×2 (09:16→17:03)
[2021-10-10] MEDS: POTASSIUM CHLORIDE / WTR 10 MEQ/100 ML PLCT IV SCH ×2 (10:13→10:57)
[2021-10-10] MEDS ORDERED: POTASSIUM CHLORIDE CRTAB 20 MEQ TABCR PO STA ×2 (10:47→17:03)
--- NOTE | 2021-10-10 10:58 | XRay Report ---
XR chest 1V portable HISTORY: 40 years-old Female chf acute shortness of breath COMPARISON: Chest radiograph 10/08/1999 TECHNIQUE: Portable AP view of the chest FINDINGS: Extensive bilateral airspace opacities have progressively worsened from prior. Cardiomediastinal and hilar silhouettes are unchanged. There is no pneumothorax or large pleural effusion. Mild blunting of the costophrenic angles again noted. Bones appear grossly intact. IMPRESSION: Extensive bilateral airspace opacities have progressively worsened from 10/08/2021 suggesti ve of viral pneumonia. ACT 112: Negative or not required by law. The above report was generated using voice recognition software. It may contain grammatical, syntax o r spelling errors. Electronically signed by: Miguel Ángel Wolff M.D. 10/10/2021 10:57 AM
--- NOTE | 2021-10-10 11:08 | Hospitalist Progress Note ---
Date of Service October 10, 2021 Assessment & Plan (1) Infective endocarditis of tricuspid valve: Plan: Initial diagnosis of MSSA bacteremia on 08/30/2021 with complications of pneumonia required chest tube placement She was transferred to [place] from [facility] and later on RODRIGUEZ showed large complex multilobar vegetations and tricuspid valve. She was put on intravenous cefazolin (to be taken until 10/19/2021) but signed out AMA and was sent on oral Keflex and rifampicin She showed up in [facility] and signed out AMA to come to [facility] on the day of admission with significant lab abnormalities as mentioned below Started with intravenous cefazolin and vancomycin Blood cultures grew MSSA and vancomycin was stopped Appreciate ID input and recommendation Appreciated cardiology input and recommendation She remains reasonably stable Septic emboli Lower lungs with minimal effusion We will continue current antibiotic Discitis/osteomyelitis with 5 cm epidural abscess at L4-5 level with encroaching upon the thecal sac MRI of the lumbar spine showed:Positive MRI demonstrating acute discitis at L4-5 with osteomyelitis of the adjacent L4 and L5 vertebral bodies. Additionally, there is an epidural abscess posterior to the L4 and L5 vertebral bodies encroaching upon the thecal sac as described above. Appreciate Ortho input and recommendation-advised transfer to a tertiary care center for further management of the epidural abscess Discussed with the patient in detail about the transfer and the proposed management-the patient is agreeable and will not sign out AMA as before Discussed with on-call spine surgeon Dr. Valle and discussed with hospitalist Dr. Boudreaux She has been under waiting list to be transferred to [place] We will continue current antibiotic Moderate shortness of breath since this morning Requiring high flow oxygen at 10 L/min Widespread crackles bilaterally Chest x-ray did show viral pneumonia/pulmonary edema IV fluid has been stopped and she received 40 of Lasix intravenously Diuresed enough and will give another dose of Lasix this afternoon with potassium supplement She has been improving already had not requiring 7 L of oxygen to maintain saturation (2) Pancytopenia: Plan: She was noted to have significant thrombocytopenia since August and noted to be severely thrombocytopenic with pancytopenia during this admission and the lowest her hospital Peripheral blood film did not support any specific diagnosis Suspected to be secondary to severe infection and may be complicated by having hepatitis C and recent use of rifampicin White blood cell count and platelet have been improving but hemoglobin remains low likely secondary to ongoing infection Iron studies are pending and B12 folate remains unremarkable, normal reticulocyte count and normal LDH Discussed with siderographer-suggested to have abdominal CAT scan to rule out any splenomegaly and abscess CT of the abdomen did not show any intra-abdominal abscess but it showed hepatosplenomegaly Her pancytopenia has been improving (3) Chronic pain syndrome: Plan: Has chronic pain and has been on Suboxone Complains to pain at the back, bilateral in the hands with hand swelling and bilaterally in the legs Appreciate Ortho input and recommendation for hand swelling and pain Appreciate pain therapy input and recommendation Suboxone doses have been increased (4) Opioid use disorder: Plan: History of intravenous opioid abuse She mentioned that she took last time about in August (5) Upper extremity pain, diffuse: Plan: Due to swelling of both the hands Advised to elevate the hands Bilateral lower extremity wound-please see the picture to find more about the leg wounds Wound care has been consulted The legs are in bandaged (6) Disorder of electrolytes: Plan: Noted to have severe hypokalemia Will be replaced and monitored (7) Hepatitis C carrier: Plan: History of hepatitis C carrier Liver function is abnormal INR and PTT are high Alkaline phos is borderline high Hepatitis C viral load has been pending in epic DVT prophylaxis No pharmacologic anticoagulation due to very low platelet SCDs CODE STATUS Full Tried to call the daughter but no reply Admission and Anticipated Discharge Date Admission Date: October 08, 2021 Subjective 10/09/2021 The patient was seen and examined in telemetry unit He complains to have generalized pain. Pain in the hands, Legs and back Denies any chest pain and/or palpitations Denies any shortness of breath 10/10/2021 The patient was seen and examined in telemetry unit She complains to have generalized pain, back pain and pain in hands and legs She was noted to be a little short of breath and has been requiring 10 L of oxyg en via oxygen mask Denies any numbness and or tingling in the lower extremities Review of Systems Review of Systems: All systems reviewed and are unremarkable except as noted below Constitutional: Generally weak and lethargic Respiratory: Mild shortness of breath at rest Musculoskeletal: Generalized pain, pain in the hands and leg. Back pain with radiation Physical Exam Physical Exam: Lying in bed with moderate distress due to pain and shortness of breath Constitutional: + ill appearing and average body habitus Eyes: PERRL, conjunctivae normal, anicteric sclerae Neck: trachea midline, no thyromegaly Respiratory: + respiratory distress (Minimal distress at rest) Auscultation: + diminished lung sounds (At the bases), + crackles (All over) and + wheezes Cardiovascular: Rate/Rhythm: regular rate, regular rhythm and + tachycardic Heart Sounds: normal S1 and normal S2; no murmur Extremities: + edema (1+edema bilaterally.Bilateral leg wounds which are bandaged from below knee) Gastrointestinal (Abdomen): Inspection/Auscultation: normal bowel sounds; abdomen not distended Percussion/Palpation: abdomen soft; abdomen nontender Musculoskeletal: Extremities: + hand abnormality (Swelling of the hands and forearms) and + lower extremity abnormal to inspection (Bilateral leg wounds. Dressed below the knee) Bilateral Neurologic: Alert, awake and oriented x3. Little drowsy. Generally very weak and lethargic Lymphatic: no cervical or axillary lymphadenopathy Results & Data Results & Data ([facility]) Vital Signs (Past 12 Hours) Vital Signs Temp Pulse Pulse Resp BP Pulse Ox 10/10/21 08:18 36.7 C 62 18 144/62 H 98 10/10/21 03:41 36.7 C 106 H 20 137/84 95 10/09/21 23:59 111 H 10/09/21 22:59 37.0 C 114 H 20 137/74 89 L 10/09/21 22:56 111 H Laboratory Results Short CBC 10/10/21 Range/Units 07:03 WBC 13.28 H (4.8-10.8) K/uL Hgb 7.6 L (12.0-16.0) g/dL Hct 24.7 L (37-47) % Plt Count 33 L (130-400) K/uL BMP 10/10/21 07:03 Sodium 139 Potassium 2.8 L Chloride 108 H Carbon Dioxide 24 BUN 14 Creatinine 0.63 Glucose 111 H Calcium 8.9 Liver Function 10/10/21 Range/Units 07:03 Total Bilirubin 0.5 (0.2-1) mg/dl AST 17 (15-37) U/L ALT < 6 L (12-78) Alkaline Phosphatase 151 H (45-117) U/L Albumin 1.5 L (3.4-5.0) gm/dl Medications Administered Current Inpatient Medications Acetaminophen (Acetaminophen 325 Mg Tab) 650 mg PO Q4H PRN PRN Reason: Pain or Fever Stop: 11/07/21 05:13 Buprenorphine/Naloxone (Buprenorphine/Naloxone 8/2 Mg Tab) 2 tab SL DAILY [facility] Stop: 11/09/21 08:59 Last Admin: 10/10/21 08:09 Dose: 2 tab Documented by: Clonidine HCl (Clonidine Hcl 0.1 Mg Tab) 0.1 mg PO Q8H PRN PRN Reason: agitation/withdrawal symptoms Stop: 11/08/21 09:53 Last Admin: 10/10/21 05:38 Dose: 0.1 mg Documented by: Diclofenac Sodium (Diclofenac Sod 1% Gel 100 Gm Tube) 2 gm EXT BID [facility] Stop: 11/07/21 20:59 Last Admin: 10/10/21 08:01 Dose: 2 gm Documented by: Hydromorphone HCl (Hydromorphone Inj 0.5 Mg/0.5 Ml Syr) 0.5 mg IV Q8H PRN PRN Reason: Pain Stop: 10/22/21 15:02 Last Admin: 10/09/21 23:59 Dose: 0.5 mg Documented by: Cefazolin Sodium (Ancef 2000mg) 2,000 mg in 15 mls @ 3.75 mls/min IV Q8H [facility] Stop: 11/19/21 05:59 Last Admin: 10/10/21 05:38 Dose: 3.75 mls/min Documented by: Lidocaine (Lidocaine 5% 1 Patch) 2 patch TD QAM [facility] Stop: 11/08/21 09:59 Last Admin: 10/10/21 08:01 Dose: 2 patch Documented by: Mirtazapine (Mirtazapine Tab 15 Mg Tab) 15 mg PO HS [facility] Stop: 11/08/21 20:59 Last Admin: 10/09/21 21:53 Dose: 15 mg Documented by: Miscellaneous (Remove Lidoderm Patch) 1 ea N/A DAILY@2100 [facility] Stop: 11/08/21 20:59 Last Admin: 10/09/21 21:31 Dose: 1 ea Documented by: Nitroglycerin (Nitroglycerin Sl 0.4 Mg/Tab Tab) 0.4 mg SL UD PRN PRN Reason: Chest Pain Stop: 11/07/21 05:13 Ondansetron HCl (Ondansetron Inj 2 Mg/Ml 2 Ml Vial) 4 mg IV Q6H PRN PRN Reason: Nausea Stop: 11/07/21 05:13 Last Admin: 10/09/21 22:27 Dose: 4 mg Documented by: Polyethylene Glycol (Polyethylene (Miralax) 17 Gm Pack) 17 gm PO DAILY PRN PRN Reason: Constipation Stop: 11/07/21 05:13 Potassium Chloride (Potassium Chloride Crtab 20 Meq Tabcr) 80 meq PO ONE ONE Stop: 10/10/21 13:01
[2021-10-10] MEDS: HYDROmorphone INJ 0.5 MG/0.5 ML SYR IV PRN ×3 (11:25→22:57)
[2021-10-10] MEDS ORDERED: VANCOMYCIN TROUGH ONE (11:30)
--- NOTE | 2021-10-10 12:26 | Cardiology Progress Note ---
Date of Service October 10, 2021 Assessment & Plan (1) Infective endocarditis of tricuspid valve: (2) Pancytopenia: (3) Acute renal insufficiency: (4) Hypokalemia: Plan: 40-year-old female with history of tricuspid valve endocarditis now found to have back pain, acute L4-L5 discitis and 5 cm epidural abscess. TTecho performed this admission revealed bulky TV vegetations (non mobile) with mild to moderate tricuspid regurgitation, Moderate right ventricular enl argement, and estimated PA systolic pressure elevated at 59 mm Hg. Previously diagnosed with septic pulmonary emboli. Agree with IV furosemide given appearance of CXR and new oxygen requirement. Pe rhaps some degree of pulmonary edema due to IV medication administration, pneumonia /ARDS also likely. Potassium 2.8, pt unable to tolerate IV potassium, will supplement orally 80 meq x 2 doses and repeat BMP at 1500. Continue IV Ancef for presumed recurrent MSSA bacteremia , cultures still in prelim from [facility] and at this site. Clinically complex situation with ongiong source of infection from leg ulcerations, TV endocarditis, and now with epidural abscess. Had never completed recommended antibiotic treatment at time of initial diagnosis last month. Spine surgery consult noted and appreciated. Agree with transfer to tertiary center given complexity of issues. Admission and Anticipated Discharge Date Admission Date: October 08, 2021 Subjective Patient seen in follow up. At time of my assessment she complained of left arm pain from IV potassium infusion. Tearful. Sinus tachycardia at 116 bpm noted on telemetry. Increase oxygen requirement noted with bilateral airspace opacities , having progressed on CXR. Physical Exam Physical Exam: Temp Pulse Resp BP Pulse Ox 36.8 C 65 20 151/79 H 97 10/10/21 11:38 10/10/21 11:38 10/10/21 11:38 10/10/21 11:38 10/10/21 11:38 Constitutional: + ill appearing Respiratory: decreased BS at the bases Cardiovascular: Rate/Rhythm: regular rhythm and + tachycardic Heart Sounds: no murmur Extremities: + edema (1+ edema ) Gastrointestinal (Abdomen): normal bowel sounds, soft, nontender, no hepatosplenomegaly Neurologic: follows commands, Mental status appropriate Results & Data ([facility]) Vital Signs (Past 12 Hours) Vital Signs Temp Pulse Resp BP Pulse Ox 10/10/21 11:38 36.8 C 65 20 151/79 H 97 10/10/21 08:18 36.7 C 62 18 144/62 H 98 10/10/21 03:41 36.7 C 106 H 20 137/84 95
[2021-10-10] MEDS ORDERED: POTASSIUM CHLORIDE CRTAB 20 MEQ TABCR PO ONE (13:00)
[2021-10-10 15:51] LABS: BUN Creatinine Ratio 20.7 (10-20); Calcium 8.4 mg/dl (8.5-10.1); Creatinine Clr Calc Pharmacy 162.3 ml/min; Est GFR (African American) 131.8 ml/min; Est GFR (Non-African American) 113.7 ml/min; Potassium 3.7 mmol/L (3.5-5.1)
--- NOTE | 2021-10-10 17:08 | Communication Note ---
Date of Service: October 10, 2021 repeat potassium =3.7 Proceed with KCL 40 meq in addition to the 80 meq + 80 meq administered earlier today. Proceed with furosemide 40 mg IV x [address] Veloz and pt's nurse , Tayler , for purpose of coordinating care.
[2021-10-10] MEDS: MIRTAZAPINE TAB 15 MG TAB PO SCH (19:46)
[2021-10-11] MEDS: ceFAZolin 2000MG 2,000 MG/15 ML SYR IV SCH ×3 (05:30→22:35)
[2021-10-11 06:06] LABS: Creatinine Clr Calc Pharmacy 185.5 ml/min; Est GFR (African American) 138.4 ml/min; Est GFR (Non-African American) 119.4 ml/min
[2021-10-11] MEDS ORDERED: FUROSEMIDE 40 MG/4 ML VIAL IV ONE (08:45)
[2021-10-11] MEDS ORDERED: ALBUTEROL 0.083% NEBU SOLN 3 ML VIAL NEB PRN (08:46)
[2021-10-11 08:50] LABS: Hematocrit (blood only) 21.5 % (37-47); Hemoglobin 6.5 g/dL (12.0-16.0); Mean Corpuscular Hemoglobin 23.9 pg (25-34); Platelet Count 46 K/uL (130-400); RDW Coefficient of Variation 24.5 % (11.5-14.5); RDW Standard Deviation 70.9 fL (36.4-46.3); Red Blood Count 2.72 M/uL (4.2-5.4); White Blood Count 15.83 K/uL (4.8-10.8)
[2021-10-11] MEDS ORDERED: SODIUM CHLORIDE 0.9% 250 ML IV PRN ×3 (08:57→15:41)
[2021-10-11 09:03] LABS: ALC (manual) 1.23 K/uL (1.2-3.4); ANC (manual) 13.36 K/uL (1.4-6.5); Anisocytosis Present; Eosinophils # (manual) 0.27 K/uL (0-0.5); Eosinophils % (manual) 1.7 %; Lymphocytes # (manual) 1.23 K/uL (1.2-3.4); Lymphocytes % (manual) 7.8 %; Mean Corpuscular Hgb Conc 30.2 g/dL (32-36); Microcytosis Present; Monocytes # (manual) 0.82 K/uL (0.11-0.59); Monocytes % (manual) 5.2 %; Myelocytes # (manual) 0.14 K/uL (0-0); Myelocytes % (manual) 0.9 %; Neutrophils # (manual) 13.36 K/uL (1.4-6.5); Neutrophils % (manual) 84.4 %; Platelet Estimate Decreased (Normal)
--- NOTE | 2021-10-11 09:11 | Cardiology Progress Note ---
Date of Service October 11, 2021 Assessment & Plan (1) Infective endocarditis of tricuspid valve: (2) Pancytopenia: (3) Acute renal insufficiency: (4) Hypokalemia: Plan: 40-year-old female with history of tricuspid valve endocarditis now found to have back pain, acute L4-L5 discitis and 5 cm epidural abscess. TTecho performed this admission revealed bulky TV vegetations (non mobile) with mild to moderate tricuspid regurgitation, Moderate right ventricular enl argement, and estimated PA systolic pressure elevated at 59 mm Hg. The mitral and aortic valves were functioning normally without regurgitation. CXR performed 10/10/21 significantly worse than 10/08/21 with interstitial edema, pulmonary edema or pneumonia. Patient's fluid balance was +3 L on 10/09/21, question if pulmonary edema as a result of volume administered for sepis. Worsening pneumonia from septic pulmonary embolic a consideration, as well as new viral pneumonia. COVID-19 screen negative on admission, however given new hypoxia will repeat. May need to consider repeat CT chest, however, would prefer to stabilize her respiratory status first. Proceed with furosemide 60 mg IV x 1 now. Await chemistry panel results, as will likely require potassium replacement. Hgb 6.5 this am, platelet count 46. Patient is awaiting transfer to tertiary center. I am very concerned with regards to her overall degree of illness and multiple issues. She is NOT a surgical candidate for spine surgery or cardiac surgery at present due to pancytopenia and respiratory status. She is young , however , very ill. Will coordinate with other providers with regards to reaching out to family members to let everyone aware of how ill she is. Admission and Anticipated Discharge Date Admission Date: October 08, 2021 Subjective Patient seen in cardiology follow up. Pt appears tired. Denies subjective shortness of breath, however, labored breathing observed. Hypoxia noted, pulse ox recorded to be 80% last evening, now on 12 L oxymask. Review of Systems Review of Systems: Unobtainable due to reduced consciousness Physical Exam Physical Exam: Temp Pulse Resp BP Pulse Ox 36.5 C 96 H 16 133/68 99 10/11/21 07:57 10/11/21 07:57 10/11/21 07:57 10/11/21 07:57 10/11/21 07:57 Constitutional: + ill appearing Cardiovascular: Rate/Rhythm: regular rate, regular rhythm and + tachycardic Heart Sounds: + murmur (2/6 SM murmur) Extremities: + edema (1+ edema ) Gastrointestinal (Abdomen): normal bowel sounds, soft, nontender, no hepatosplenomegaly Neurologic: lethargic, follows commands Results & Data ([facility]) Vital Signs (Past 12 Hours) Vital Signs Temp Pulse Pulse Resp BP Pulse Ox 10/11/21 07:57 36.5 C 96 H 16 133/68 99 10/11/21 07:15 99 H 10/11/21 02:52 37.1 C 105 H 20 121/67 96 10/10/21 23:59 113 H 10/10/21 23:05 37.1 C 71 19 111/50 L 98 Laboratory Results CBC 10/11/21 Range/Units 05:33 WBC 15.83 H (4.8-10.8) K/uL RBC 2.72 L (4.2-5.4) M/uL Hgb 6.5 L* (12.0-16.0) g/dL Hct 21.5 L (37-47) % Plt Count 46 L (130-400) K/uL Comprehensive Metabolic Panel 10/10/21 10/11/21 Range/Units 15:12 05:30 Sodium 138 (136-145) mmol/L Potassium 3.7 (3.5-5.1) mmol/L Chloride 104 (98-107) mmol/L Carbon Dioxide 26 (21-32) mmol/L BUN 12 (6-23) mg/dl Creatinine 0.58 L 0.50 L (0.6-1.2) mg/dl Glucose 109 H (70-99) mg/dl Calcium 8.4 L (8.5-10.1) mg/dl Intake and Output 10/10/21 10/11/21 10/11/21 22:59 06:59 14:59 Intake Total 125 / 1346.667 150 / 1346.667 Output Total 1099 Balance -975 / -603.333 -700 / -603.333 Intake: Oral 125 / 275 150 / 275 Output: Urine Amount (Catheter) 1099 [place]/Indwelling 1099 Other: Weight 90.8 kg Weight Measurement Method Built in [facility]
[2021-10-11 09:23] LABS: Albumin Globulin Ratio 0.6 (0.9-2); Albumin Level 2.2 gm/dl (3.4-5.0); Alkaline Phosphatase 118 U/L (34-104); Bilirubin,Total 0.7 mg/dl (0.2-1.0); Blood Urea Nitrogen 10 mg/dl (6-23); Calcium 7.9 mg/dl (8.5-10.1); Chloride 99 mmol/L (98-107); Glucose 105 mg/dl (70-99); Sodium 134 mmol/L (136-145); Total Protein 6.2 gm/dl (6.0-8.3)
--- NOTE | 2021-10-11 09:37 | XRay Report ---
XR chest 1V portable CLINICAL HISTORY: Hypoxia COMPARISON STUDY: Chest radiograph October 10, 2021. FINDINGS: No pneumothorax or pleural effusion is noted. Cardiomediastinal silhouette is stable. A 2.7 cm round opacity within the lateral right lower lung is again noted. Extensive bilateral airspace op acities are present. Left lung aeration is slightly improved. IMPRESSION: 1. Extensive bilateral airspace opacities consistent with an infectious process. Slight improvement i n left lung aeration. 2. 2.7 cm round opacity within the lateral right lower lung. This is also likely infectious however r adiographic follow up to ensure resolution is recommended. ACT 112: Negative or not required by law. Electronically signed by: Rayray Jamison M.D. 10/11/2021 9:36 AM
[2021-10-11] MEDS: DICLOFENAC SOD 1% GEL 100 GM TUBE EXT SCH ×2 (09:42→20:43)
[2021-10-11] MEDS: BUPRENORPHINE/NALOXONE 8/2 MG TAB SL SCH (09:42)
[2021-10-11] MEDS: LIDOCAINE 5% 1 PATCH TD SCH (09:42)
[2021-10-11 09:50] LABS: Alanine Aminotransferase < 3 U/L (7-52); Anion Gap 6 (3-11); Aspartate Aminotransferase 13 U/L (13-39); BUN Creatinine Ratio 18.9 (10-20); Carbon Dioxide 29 mmol/L (21-32); Est GFR (African American) 135.7 ml/min; Est GFR (Non-African American) 117.1 ml/min
[2021-10-11 11:09] LABS: Influenza A virus by PCR Negative (Neg); Influenza B virus by PCR Negative (Neg); RSV by PCR Negative (Neg); SARS CoV2 RNA(COVID-19) InHosp NEGATIVE (Negative)
[2021-10-11 11:12] LABS: Hematocrit (blood only) 23.3 % (37-47)
--- NOTE | 2021-10-11 13:28 | Pulmonary Consultation ---
Date of Consultation October 11, 2021 Assessment & Plan (1) Acute respiratory failure with hypoxia: (2) History of tobacco abuse: (3) Opioid use disorder: (4) Infective endocarditis of tricuspid valve: (5) Hemoptysis: Attending: Dr. Moore Impression: This a 40-year-old female with opioid abuse, tobacco abuse, methamphetamine use, infective endocarditis of tricuspid valve, hypoxia, and reports of hemoptysis. Hemoptysis appears to be epistaxis and appears to be originating from bilateral naris. Worsened when patient blows her nose. "Clots" witnessed by nursing as well as by patient when blowing nose. No evidence of bleeding of the posterior oropharynx. Recommendations: 1. Hemoptysis: * Origin does not appear to be from the lungs. Suspect epistaxis * No evidence of bleeding in the posterior oropharynx * Due to infective endocarditis as well as comorbidities, consider CTA of the chest to rule out pulmonary embolus. No evidence of pulmonary necrosis on chest x-ray. CT may elucidate more * Not a candidate for bronchoscopy at this time. * It is not likely that the anemia demonstrated on morning labs is from hemoptysis * Patient is pancytopenic and had a platelet count of 33,000. Platelet count currently is 46,000. This certainly could be contributing to epistaxis. Would recommend [place] nasal spray to nares every hour 2. Hypoxia: * Patient most likely with COPD. 1 pack/day or greater of tobacco abuse since teenage years * Other etiology may be considered as patient has a history of incarceration * Would continue with broad-spectrum antibiotics at this time pending transfer to tertiary care facility for infective endocarditis of tricuspid valve * Procalcitonin on 10/08/2021 was greater than 200. Would certainly trend this. * Would repeat COVID testing as patient has bilateral multifocal opacities that may be call center representative of COVID infection. * Would also check for influenza a and B as well as RSV. * Continue to titrate supplemental oxygen to maintain SaO2 at 90% * Consider initiation of Breo Ellipta (ICS, LABA) in the event the patient has undiagnosed COPD. May also use DuoNeb's as needed for bronchospasm * Would avoid flutter valve as patient has thrombocytopenia * Await CT a of chest results Would recommend that you continue with transfer of patient to tertiary care facility. In the event the patient does have true hemoptysis with thrombocytopenia, there is little that we can do here. Patient may require interventional radiology in the event that bleeding worsens. Patient also needs work-up for infective endocarditis of the tricuspid valve. Echocardiogram reviewed and large vegetation is noted but no measurements. At this time the pulmonary service will sign off. Please refer to Dr. Moore's addendum for further recommendations. We certainly concur the transfer is appropriate. Supervising Physician Co-Signing Physician Notes Patient seen and examined. EMR reviewed. Images were independently reviewed. Does not appear the patient suffering from hemoptysis currently. If so, she has multiple reasons to have underlying hemoptysis including pulmonary arterial septic emboli, pulmonary infarcts, and pulmonary aneurysms given her right-sided endocarditis. No indication for bronchoscopy currently. The only indication for bronchoscopy would be severe refractory hemoptysis and would likely necessitate interventional radiology intervention which is not available at our institution. Would agree with plans to transfer the patient to a tertiary care facility which has IR and infectious disease capabilities. Unclear if the patient would be candidate for resection of her tricuspid valve given her septic emboli. Feel free to contact us should the patient's condition clinically warrant. Otherwise plan as noted above in JASMIN note History of Present Illness Reason for Consultation: Increasing respiratory requirements and question of hemoptysis Attending Physician: Barrera Howard MD History of Present Illness Attending: Dr. Moore Is a 40-year-old female with history of osteomyelitis of the lumbar spine, hepatitis C, opioid use disorder, chronic pain syndrome, hypokalemia, thrombocytopenia, tobacco abuse, pancytopenia, infective endocarditis of tricuspid valve, intravenous illicit drug use. Reconsulted to see this patient with reports of increasing oxygen requirements and question of hemoptysis. Patient was found to have infective endocarditis of tricuspid valve and is currently requiring increased supplemental oxygen usage. She is currently on an oxime mask at 12 L/min and saturating 99%. The patient was reported of hemoptysis. In discussion with the patient and the patient's nurse, it appears that all of the blood is coming from the nose and is exacerbated when patient blows her nose. Patient denies any prior history of hemoptysis or lung disease. She is an everyday tobacco smoker and reports smoking 1 pack/day since her teenage years. She also has a known methamphetamine user and reports IV drug use as recently as last fall 2020. Patient denies any chest pain or tightness at this time. She is comfortable with the Oxymask. She has no evidence of conversational dyspnea during the period of my examination. Patient reports that she is not vaccinated for COVID. She is not aware of any COVID contacts. Allergies Allergy/AdvReac Type Severity Reaction Status Date / Time acetaminophen [From Tylenol] AdvReac Intermediate Vomiting Verified 10/08/21 00:08 methadone AdvReac Intermediate Vomiting Verified 10/08/21 00:08 Home Medications Medication Instructions Recorded Confirmed Type buprenorphine 8 mg-naloxone 2 mg 1.5 tab SUBLINGUAL DAILY 10/08/21 10/08/21 History sublingual tablet rifampin 300 mg capsule 600 mg PO Q12H 10/08/21 10/08/21 History Patient History Medical History (Updated 10/11/21 @ 14:30 by Abdirahman Aj PA-C) Chronic pain syndrome History of tobacco abuse IV drug abuse Opioid use disorder Upper extremity pain, diffuse Bilateral Social History Smoking Status: Current every day smoker Cigarettes Per Day: 30; Second Hand Exposure: No; Do You Dip or Chew Tobacco: No; Tobacco Cessation Education Requested by Patient: No Hx Alcohol Use: No Preferred Language: Irish Communication Ability: Effective Towel Sewer Required: No Beliefs That Will Affect Care: None Current Living Situation: Family Other Information That Helps Us Care for You: No Feels Safe at Home: Yes Safety Concerns: Feels Safe At This Time Assistive Devices: Oxygen - Continuous Review of Systems Review of Systems: All systems reviewed & are unremarkable except as noted in Subjective Physical Exam Physical Exam: GENERAL : No acute distress. Patient somewhat lethargic. EYES: No icterus, gaze conjugate. Pupils equal and round NOSE: Evidence of epistaxis in both naris MOUTH: No lesions or candidiasis. Poor oral hygiene. Oxime mask in place NECK: Supple. No appreciation of bruits LUNGS: Patient with good air movement. Bronchospasm is scattered. Bibasilar rales. No appreciation of rhonchi. HEART: Regular, harsh murmur. ABDOMEN: Soft, NT, ND, BS Present. No tenderness with deep palpation. No guarding. EXTREMITIES: Bilateral LE edema, bilateral upper extremity edema. Bilateral radial pulses and bilateral pedal pulses intact and equal. Poor distal limb hygiene. NEURO: A&OX3 although patient is somewhat lethargic. On 2 occasions she drifted off midsentence. Does not appear to have any other focal neurological deficits. Results & Data Results & Data ([facility]) Vital Signs (Past 12 Hours) Vital Signs Temp Pulse Pulse Resp BP Pulse Ox 10/11/21 11:49 36.5 C 87 20 142/63 H 98 10/11/21 07:57 36.5 C 96 H 16 133/68 99 10/11/21 07:15 99 H 10/11/21 02:52 37.1 C 105 H 20 121/67 96 Critical Care Results & Data Vital Signs (Past 12 Hours) Vital Signs Temp Pulse Pulse Resp BP Pulse Ox 10/11/21 11:49 36.5 C 87 20 142/63 H 98 10/11/21 07:57 36.5 C 96 H 16 133/68 99 10/11/21 07:15 99 H 10/11/21 02:52 37.1 C 105 H 20 121/67 96 Lab & Micro Results (Past 24 Hours) RBC 2.72 M/uL (4.2-5.4) L 10/11/21 WBC 15.83 K/uL (4.8-10.8) H 10/11/21 Hgb 7.0 g/dL (12.0-16.0) L 10/11/21 Hct 23.0 % (37-47) L 10/11/21 MCV 79.0 fL (80-100) L 10/11/21 MCH 23.9 pg (25-34) L 10/11/21 MCHC 30.2 g/dL (32-36) L 10/11/21 RDW Standard Deviation 70.9 fL (36.4-46.3) H 10/11/21 RDW Coefficient of Variation 24.5 % (11.5-14.5) H 10/11/21 Plt Count 46 K/uL (130-400) L 10/11/21 ANC 13.36 K/uL (1.4-6.5) H 10/11/21 ALC 1.23 K/uL (1.2-3.4) 10/11/21 Neutrophils % (Manual) 84.4 % 10/11/21 Lymphocytes % (Manual) 7.8 % 10/11/21 Monocytes % (Manual) 5.2 % 10/11/21 Eosinophils % (Manual) 1.7 % 10/11/21 Myelocytes % (Manual) 0.9 % 10/11/21 Neutrophils # (Manual) 13.36 K/uL (1.4-6.5) H 10/11/21 Lymphocytes # (Manual) 1.23 K/uL (1.2-3.4) 10/11/21 Monocytes # (Manual) 0.82 K/uL (0.11-0.59) H 10/11/21 Eosinophils # (Manual) 0.27 K/uL (0-0.5) 10/11/21 Myelocytes # (Manual) 0.14 K/uL (0-0) H 10/11/21 Anisocytosis Present 10/11/21 Microcytosis Present 10/11/21 Na 134 mmol/L (136-145) L 10/11/21 K 4.0 mmol/L (3.5-5.1) 10/11/21 Cl 99 mmol/L (98-107) 10/11/21 CO2 29 mmol/L (21-32) 10/11/21 Anion Gap 6 (3-11) 10/11/21 BUN 10 mg/dl (6-23) 10/11/21 Creatinine 0.53 mg/dl (0.6-1.2) L 10/11/21 Estimated GFR ( Amer) 135.7 ml/min 10/11/21 Estimated GFR (Non-Af Amer) 117.1 ml/min 10/11/21 BUN/Creatinine Ratio 18.9 (10-20) 10/11/21 Glu 105 mg/dl (70-99) H 10/11/21 Ca 7.9 mg/dl (8.5-10.1) L 10/11/21 Total Bilirubin 0.7 mg/dl (0.2-1.0) 10/11/21 AST 13 U/L (13-39) 10/11/21 ALT < 3 U/L (7-52) L 10/11/21 Alkaline Phosphatase 118 U/L (34-104) H 10/11/21 TP 6.2 gm/dl (6.0-8.3) 10/11/21 Albumin 2.2 gm/dl (3.4-5.0) L 10/11/21 Globulin 4.0 gm/dl (2.5-4.0) 10/11/21 Albumin/Globulin Ratio 0.6 (0.9-2) L 10/11/21 Calcium Level 7.9 mg/dl (8.5-10.1) L 10/11/21 05:33 10/11/21 Microbiology 10/08/21 03:12 Aerobic Blood Culture - Preliminary Blood Staphylococcus aureus Anaerobic Blood Culture - Preliminary No growth in Anaerobic bottle after 48 hours. 10/08/21 Unknown Urine Culture - Final Urine,Clean Catch No growth - less than 1,000 colonies/mL. Diagnostic Findings (Past 24 Hours) Chest X-Ray 10/11/21 08:40 XR chest 1V portable CLINICAL HISTORY: Hypoxia COMPARISON STUDY: Chest radiograph October 10, 2021. FINDINGS: No pneumothorax or pleural effusion is noted. Cardiomediastinal silhouette is stable. A 2.7 cm round opacity within the lateral right lower lung is again noted. Extensive bilateral airspace opacities are present. Left lung aeration is slightly improved. IMPRESSION: 1. Extensive bilateral airspace opacities consistent with an infectious process. Slight improvement in left lung aeration. 2. 2.7 cm round opacity within the lateral right lower lung. This is also likely infectious however radiographic follow up to ensure resolution is recommended. ACT 112: Negative or not required by law. Electronically signed by: Rayray Jamison M.D. 10/11/2021 9:36 AM I & O Totals 24 Hours 10/10/21 10/11/21 10/12/21 06:59 06:59 06:59 Intake Total 3410 / 3410 1346.667 / 1346.667 Output Total 2900 / 2900 1950 / 1950 3100 / 3100 Balance 510 / 510 -603.333 / -603.333 -3100 / -3100 Cumulative 10/07/21 23:38 thru 10/11/21 14:23 Intake Total 51905.667 Output Total 9600 Balance 1201.667 RT Ventilator Mngmt (Last Documented) Ventilator Ordered Settings Respiratory Rate 20 10/11/21 11:49 Ventilator - PT Measurements Respiratory Rate 20 PG Care Time/CCT Total # of Minutes Spent Total Time Spent with Patient: Total time spent is greater than 50% in coordination of care (as documented) at patient's floor/unit and/or counseling patient: Coding Level of Care Code 91134 Initial Inpt Care Lvl 3 Diagnoses Acute respiratory failure with hypoxia J96.01 History of tobacco abuse Z87.891 Opioid use disorder F11.90 Infective endocarditis of tricuspid valve I33.0 Hemoptysis R04.2 Time Spent (min) 45
[2021-10-11] MEDS ORDERED: OPTIRAY 320 125ml IV ONE (14:22)
--- NOTE | 2021-10-11 14:44 | CT Scan Report ---
CT angio chest PE protocol CLINICAL HISTORY: Shortness of breath. Hypoxia. Evaluate for pulmonary embolus COMPARISON STUDY: Portable chest from 10/11/2021 CT DOSE: 657.83 mGycm TECHNIQUE: CT Angio of the chest was performed.followed by image post processing with coronal, and s agittal MIP reformats. Contrast Volume: Optiray 320, 120 ml FINDINGS: Vasculature: There are multiple intraluminal filling defects present within the right main and right lower lobe pulmonary arteries representing the presence of pulmonary emboli. No filling defects are s een on the left. Airway: The airway is clear. No endobronchial lesion is identified. Lungs: Extensive groundglass opacities are present throughout both lungs characteristic of a viral ty pe pneumonitis and Covid 19 pneumonia. More confluent alveolar opacities are also present bilaterally with no air bronchograms. Pleura: There are small bilateral pleural effusions. There is no evidence for pneumothorax. Mediastinum: There is no evidence for pathologic adenopathy. There is no evidence for right heart str ain. The heart size is within normal limits. The thoracic aorta is within normal limits. There is no evidence for pericardial effusion. Upper abdomen:The adrenal glands are normal bilaterally. Osseous structures: There is no acute osseous pathology. Impression: 1. Positive CTA for pulmonary emboli within the right main and right lower lobe pulmonary arteries. 2. No evidence for right heart strain. 3. Extensive groundglass opacities are present throughout both lungs characteristic of a viral type p neumonitis and Covid 19 pneumonia. More confluent alveolar opacities are also present bilaterally wit h no air bronchograms. 4. Small bilateral pleural effusions. ACT 112: Negative or not required by law. Electronically signed by: Surendra Brown M.D. 10/11/2021 2:43 PM
[2021-10-11] MEDS: POTASSIUM CHLORIDE CRTAB 20 MEQ TABCR PO SCH (15:12)
[2021-10-11] MEDS ORDERED: OXYMETAZOLINE 0.05% 30 ML BTL PRN (15:44)
--- NOTE | 2021-10-11 15:50 | Communication Note ---
Date of Service: October 11, 2021 CTA results reviewed by phone with radiology and with Dr Howard. R sided pulmonary emboli noted. Unable to distinguish between VTE and septic pulmonary embolic from TV endocarditis. Pneumonia noted. PE new compared to CTA performed 09/07/21 at [facility]. Repeat COVID testing negative. 3 L of urine output noted with furosemide 60 mg this am. Per review of records has h/o HCV, chronic anemia, multiple Hgb levels of 5.9 to 7.9 g/dl last month in the [facility] system. Has long standing h/o iron deficiency, Fe level was 22 last month. Plan: Proceed with low dose heparin infusion , no loading bolus Transfuse 1 unit PRBC, with lasix 20 mg IV after Lower extremity venous duplex to assess for DVT.
[2021-10-11] MEDS ORDERED: FUROSEMIDE INJ 20 MG/2 ML VIAL IV ONE (16:00)
--- NOTE | 2021-10-11 16:06 | Communication Note ---
Date of Service: October 11, 2021 With patient's permission, I called her 23 year old daughter, Shadia, . I updated her with regards to the patient's multiple medical problems 1. Endocarditis 2. Epidural lumbar spine abscess 3. Pneumonia 4. Pulmonary embolism 5. Low platelets 6. Low hemoglobin I discussed my concerns with regards to the patient's poor prognosis. Shadia works funeral professional. She is going to do her best to visit tomorrow. She has several aunts and uncles in the area.
[2021-10-11] MEDS: ACETAMINOPHEN 325 MG TAB PO PRN (17:12)
[2021-10-11] MEDS: SODIUM CHLORIDE 0.65% NA SOLN 45 ML (OCEAN) SCH ×4 (17:22→22:36)
[2021-10-11] MEDS ORDERED: Heparin IV Adult Wt-Based Low-Dose *NO* Bolus Protocol IV SCH (17:30)
[2021-10-11] MEDS: DOXYCYCLINE HYCLATE 100 MG in DEXTROSE 5% 100 ML IV SCH (17:37)
[2021-10-11] MEDS: HEPARIN SODIUM/DEXTROSE 25,000 UNITS/500 ML BAG IV SCH (17:56)
[2021-10-11] MEDS: Heparin IV Adult Wt-Based Low-Dose *NO* Bolus Protocol IV SCH ×2 (17:59→18:03)
--- NOTE | 2021-10-11 18:01 | Hospitalist Progress Note ---
Date of Service October 11, 2021 Assessment & Plan (1) Infective endocarditis of tricuspid valve: Plan: Infective endocarditis of tricuspid valve MSSA bacteremia As per Prior hospitalist Initial diagnosis of MSSA bacteremia on 08/30/2021 with complications of pneum onia required chest tube placement She was transferred to [place] from [facility] and later on [facility] showed large complex multilobar vegetations and tricuspid valve. She was put on intravenous cefazolin (to be taken until 10/19/2021) but signed out AMA and was sent on oral Keflex and rifampicin She showed up in [facility] and signed out AMA to come to [facility] on the day of admission with significant lab abnormalities as mentioned below Started with intravenous cefazolin and vancomycin Blood cultures grew MSSA and vancomycin was stopped Appreciate ID input and recommendation Appreciated cardiology input and recommendation Continue cefazolin Acute respiratory failure with hypoxia Multifocal pneumonia COVID screen negative Influenza, RSV screen negative -CTA:Positive CTA for pulmonary emboli within the right main and right lower lobe pulmonary arteries. No evidence for right heart strain. Extensive groundglass opacities are present throughout both lungs characteristic of a viral type pneumonitis and Covid 19 pneumonia. More confluent alveolar opacities are also present bilaterally with no air bronchograms. Small bilateral pleural effusions. -Started on IV heparin -Blood cultures initially growing MSSA Repeat blood cultures pending Continue cefazolin, added doxycycline Nebs as needed Appreciate pulmonology input Waiting for tertiary care transfer Check venous Dopplers Septic emboli Lower lungs with minimal effusion Management as above Discitis/osteomyelitis with 5 cm epidural abscess at L4-5 level with encroaching upon the thecal sac MRI of the lumbar spine showed:Positive MRI demonstrating acute discitis at L4-5 with osteomyelitis of the adjacent L4 and L5 vertebral bodies. Additionally, there is an epidural abscess posterior to the L4 and L5 vertebral bodies encroaching upon the thecal sac as described above. Appreciate Ortho input Needs transfer to a tertiary care center for management of the epidural abscess Patient agreed with transfer as per prior hospitalist Prior hospitalist discussed with on-call spine surgeon Dr. Valle and discussed with hospitalist Dr. Boudreaux Waiting list to be transferred to [place] (2) Pancytopenia: Plan: H/O significant thrombocytopenia since August and noted to be severely thrombocytopenic with pancytopenia during this admission Peripheral blood film did not support any specific diagnosis Suspected to be secondary to severe infection and may be complicated by having hepatitis C and recent use of rifampicin White blood cell count and platelet have been improving but hemoglobin remains low likely secondary to ongoing infection Iron studies are pending and B12 folate remains unremarkable, normal reticulocyte count and normal LDH Discussed with oyster floater-suggested to have abdominal CAT scan to rule out any splenomegaly and abscess CT of the abdomen did not show any intra-abdominal abscess but it showed hepatosplenomegaly Monitor CBC Plan to transfuse 1 unit PRBCs today (3) Chronic pain syndrome: Plan: Has chronic pain and has been on Suboxone Complains to pain at the back, bilateral in the hands with hand swelling and bilaterally in the legs Appreciate Ortho input and recommendation for hand swelling and pain Appreciate pain therapy input and recommendation Suboxone doses have been increased (4) Opioid use disorder: Plan: History of intravenous opioid abuse Patient admits to taking--last time about in August (5) Upper extremity pain, diffuse: Plan: Due to swelling of both the hands Elevate UE Lasix PRN Bilateral lower extremity wound Wound care has been consulted Wound dressing Continue above Antibiotics (6) Disorder of electrolytes: Plan: Severe hypokalemia Replace and monitor (7) Hepatitis C carrier: Plan: History of hepatitis C carrier Liver function is abnormal INR and PTT are high Alkaline phos is borderline high Hepatitis C viral load has been pending in epic DVT prophylaxis on IV hepatin SCDs CODE STATUS Full Code Disposition Frandy Brewer when bed available Admission and Anticipated Discharge Date Admission Date: October 08, 2021 Subjective Patient is seen and examined at bedside States having epistaxis, minimal hemoptysis this morning Reports shortness of breath associated with cough Also reported minimal chest discomfort with cough Denies any dizziness, nausea, abdominal pain Currently on 12 L oxygen mask Discussed with cardiology and pulmonology today Also discussed with Osman Wise for transfer Review of Systems Review of Systems: All systems reviewed & are unremarkable except as noted in Subjective Physical Exam Physical Exam: Physical Exam: Vitals signs as noted above General Appearance:Ill appearing, no apparent distress Head: normocephalic, Atraumatic Eyes: normal inspection, EOMI Neck: supple, Trachea midline Respiratory/Chest: Decreased breath sounds, basal rales, No accessory muscle use Cardiovascular: S1, S2, +murmur Abdomen/GI:Soft, Non tender, Bowel sounds present Extremities/Musculoskeletal:normal inspection, B/L LE edema, + wounds in dressing Neurologic/Psych:AAOX3, grossly no focal neurological deficits Skin: normal color, warm Results & Data Results & Data ([facility]) Vital Signs (Past 12 Hours) Vital Signs Temp Pulse Pulse Resp BP Pulse Ox 10/11/21 17:19 38.5 C H 115 H 22 134/76 91 10/11/21 16:00 36.8 C 68 16 118/76 97 10/11/21 11:49 36.5 C 87 20 142/63 H 98 10/11/21 07:57 36.5 C 96 H 16 133/68 99 10/11/21 07:15 99 H Laboratory Results Short CBC 10/11/21 10/11/21 10/11/21 Range/Units 05:33 11:05 12:56 WBC 15.83 H (4.8-10.8) K/uL Hgb 6.5 L* 7.0 L 7.0 L (12.0-16.0) g/dL Hct 21.5 L 23.3 L 23.0 L (37-47) % Plt Count 46 L (130-400) K/uL BMP 10/11/21 10/11/21 05:30 05:33 Sodium 134 L Potassium 4.0 Chloride 99 Carbon Dioxide 29 BUN 10 Creatinine 0.50 L 0.53 L Glucose 105 H Calcium 7.9 L Liver Function 10/11/21 Range/Units 05:33 Total Bilirubin 0.7 (0.2-1.0) mg/dl AST 13 (13-39) U/L ALT < 3 L (7-52) U/L Alkaline Phosphatase 118 H (34-104) U/L Albumin 2.2 L (3.4-5.0) gm/dl
[2021-10-11 18:14] LABS: Partial Thromboplastin Ratio 1.1; Partial Thromboplastin Time 29.1 Seconds (21.0-31.0)
--- NOTE | 2021-10-11 18:33 | Ultrasound Report ---
BILATERAL LOWER EXTREMITY VENOUS DOPPLER HISTORY: Acute pain and swelling of the lower legs Acute PE, R/O DVT COMPARISON STUDY: 10/08/2021 Doppler study FINDINGS: There is normal compressibility, flow, and augmentation within the bilateral lower extremit y deep venous systems. Reported wound of the mid to distal calf limits evaluation of the adjacent ilana ous structures. IMPRESSION: No DVT within the right or left lower extremity. ACT 112: Negative or not required by law. Electronically signed by: Miguel Ángel Wolff M.D. 10/11/2021 6:32 PM
[2021-10-11] MEDS: MIRTAZAPINE TAB 15 MG TAB PO SCH (20:43)
[2021-10-11 22:01] LABS: Hematocrit (blood only) 21.8 % (37-47); Hemoglobin 6.6 g/dL (12.0-16.0)
[2021-10-11] MEDS ORDERED: KETOROLAC TROMETHAMINE 15 MG/ML VIAL IV ONE (22:09)
[2021-10-12] MEDS: SODIUM CHLORIDE 0.65% NA SOLN 45 ML (OCEAN) SCH ×13 (00:03→23:45)
[2021-10-12 00:58] LABS: Partial Thromboplastin Ratio 1.2; Partial Thromboplastin Time 30.3 Seconds (21.0-31.0)
[2021-10-12] MEDS ORDERED: HEPARIN SOD (PORCINE) 1000 UNIT/ML IV ONE (01:15)
[2021-10-12] MEDS: CEFEPIME 2,000 MG in SYRINGE 0 ML IV SCH ×3 (03:50→19:23)
[2021-10-12] MEDS: HYDROmorphone INJ 0.5 MG/0.5 ML SYR IV PRN ×2 (05:14→13:18)
--- NOTE | 2021-10-12 05:51 | Communication Note ---
Date of Service: October 12, 2021 Made aware by RN of gram-negative ceferino bacteremia 2 bottles. AP Infective endocarditis Gram-negative ceferino bacteremia Ongoing Ancef Rx for MSSA bacteremia Change Cefazolin to Cefepime for now to include broad coverage for GNR pathogens. Repeat blood cultures with a.m. blood work. Will relay to AM provider.
[2021-10-12] MEDS ORDERED: FUROSEMIDE INJ 20 MG/2 ML VIAL IV ONE ×2 (06:16→10:15)
[2021-10-12] MEDS: DOXYCYCLINE HYCLATE 100 MG in DEXTROSE 5% 100 ML IV SCH ×2 (06:56→17:08)
[2021-10-12] MEDS: POTASSIUM CHLORIDE CRTAB 20 MEQ TABCR PO SCH ×2 (08:17→13:18)
[2021-10-12] MEDS: DICLOFENAC SOD 1% GEL 100 GM TUBE EXT SCH ×2 (08:18→20:37)
[2021-10-12] MEDS: LIDOCAINE 5% 1 PATCH TD SCH (08:18)
[2021-10-12 08:19] LABS: Partial Thromboplastin Ratio 1.1; Partial Thromboplastin Time 28.8 Seconds (21.0-31.0)
[2021-10-12] MEDS: BUPRENORPHINE/NALOXONE 8/2 MG TAB SL SCH (08:20)
[2021-10-12 08:32] LABS: Anion Gap 9 (3-11); BUN Creatinine Ratio 23.3 (10-20); Blood Urea Nitrogen 10 mg/dl (6-23); Calcium 8.1 mg/dl (8.5-10.1); Carbon Dioxide 33 mmol/L (21-32); Chloride 94 mmol/L (98-107); Creatinine Clr Calc Pharmacy 196.7 ml/min; Est GFR (African American) 145.4 ml/min; Est GFR (Non-African American) 125.5 ml/min; Glucose 150 mg/dl (70-99); Potassium 3.5 mmol/L (3.5-5.1); Sodium 136 mmol/L (136-145)
[2021-10-12 08:33] LABS: Hematocrit (blood only) 24.8 % (37-47); Hemoglobin 7.5 g/dL (12.0-16.0); Mean Corpuscular Hemoglobin 24.5 pg (25-34); Mean Corpuscular Hgb Conc 30.2 g/dL (32-36); Platelet Count 80 K/uL (130-400); RDW Coefficient of Variation 22.6 % (11.5-14.5); RDW Standard Deviation 66.7 fL (36.4-46.3); Red Blood Count 3.06 M/uL (4.2-5.4); White Blood Count 13.15 K/uL (4.8-10.8)
[2021-10-12 08:34] LABS: Platelet Estimate Decreased (Normal)
[2021-10-12 08:48] LABS: Alanine Aminotransferase < 3 U/L (7-52); Albumin Globulin Ratio 0.6 (0.9-2); Albumin Level 2.5 gm/dl (3.4-5.0); Alkaline Phosphatase 99 U/L (34-104); Aspartate Aminotransferase 15 U/L (13-39); Bilirubin,Total 0.6 mg/dl (0.2-1.0); Globulin 4.4 gm/dl (2.5-4.0); Total Protein 6.9 gm/dl (6.0-8.3)
--- NOTE | 2021-10-12 10:13 | Cardiology Progress Note ---
Date of Service October 12, 2021 Assessment & Plan (1) Infective endocarditis of tricuspid valve: (2) Osteomyelitis of lumbar spine: (3) MSSA bacteremia: (4) Gram-negative bacteremia: (5) Pulmonary embolism: (6) Pneumonia: (7) Pancytopenia: (8) Hypokalemia: Plan: 40-year-old female with history of tricuspid valve endocarditis now found to have back pain, acute L4-L5 discitis , 5 cm epidural abscess and spinal osteomyelitis. TTecho performed this admission revealed bulky TV vegetations (non mobile) with mild to moderate tricuspid regurgitation, Moderate right ventricular enlargement, and estimated PA systolic pressure elevated at 59 mm Hg. The mitral and aortic valves were functioning normally without regurgitation. She has had a progressive increase in oxygen requirement, development of bilateral infiltrates on chest x-ray, CT angiogram consistent with pneumonia as well as right-sided pulmonary emboli. Perhaps venous thromboembolic event, or septic emboli from the tricuspid valve. Lower extremity venous duplex negative. With caution, patient received 1 unit of packed red blood cells on 10/11/2021 to support her anemia, followed by another dose of furosemide, and has been on low- dose heparin -initiated 10/11/21. Platelet count improved to 88K today, hemoglobin relatively stable, with chronic iron deficiency anemia, recent hemoglobins prior to this hospital stay in the range of 5.9-7.9 in August. Blood cultures obtained 10/11/2021, now reveal gram-negative bacilli. Antibiotic coverage has been broadened from Ancef to cefepime plus IV doxycycline (10/12/21). Will continue to supplement her potassium, and will treat with furosemide 20 mg IV x1 today, in effort to keep her intake and output even given need to administer IV fluids in the form of antibiotics. I am very concerned with regards to her overall degree of illness and multiple issues. She is NOT a surgical candidate for spine surgery or cardiac surgery at present due to pancytopenia , respiratory status, and even if she was to have one problem addressed surgically, she would still be at high risk of seeding from the other, and at present I do not think she would survive operative intervention. Best option therefore is ongoing supportive care with IV antibioti cs, supplemental oxygen, and anticoagulation. Anticoagulation also NOT ideal in the setting of endocarditis, and generally contraindicated, however, given hypoxia and PE on CT appears to be clinically necessary. She is young , however , very ill. Anticipate her daughter, Susan, whom I had updated by phone on 10/11/2021 to visit today. Admission and Anticipated Discharge Date Admission Date: October 08, 2021 Subjective Jazmyn Malagon is seen in cardiology follow-up today. Oxygen requirements have decreased somewhat down to 6 L this morning, with most recent pulse oximetry 98%, however patient states that perhaps she feels little worse since her oxygen levels were titrated down. Events of overnight last night noted, repeat blood cultures revealing gram- negative bacilli on 2 of 2 cultures obtained on 10/11/2021, after 3 days of treatment with Ancef for previously noted MSSA. Patient remains on heparin infusion. Hemoglobin stable, platelet counts mildly improved. Physical Exam Physical Exam: Temp Pulse Resp BP Pulse Ox 36.7 C 96 H 18 118/70 98 10/12/21 07:32 10/12/21 07:32 10/12/21 07:32 10/12/21 07:32 10/12/21 07:32 Constitutional: + ill appearing Cardiovascular: Rate/Rhythm: regular rate, regular rhythm and + tachycardic Heart Sounds: + murmur (2/6 SM murmur) Extremities: + edema (1+ edema ) Gastrointestinal (Abdomen): normal bowel sounds, soft, nontender, no hepatosplenomegaly Neurologic: Easily arousable, moves all 4 extremities on command. Conversant. Genitourinary: [place] catheter in place, draining clear yellow urine. Results & Data ([facility]) Vital Signs (Past 12 Hours) Vital Signs Temp Pulse Pulse Resp BP BP Pulse Ox 10/12/21 07:32 36.7 C 96 H 18 118/70 98 10/12/21 02:34 36.7 C 86 16 107/69 98 10/12/21 01:57 36.8 C 91 H 20 106/69 10/12/21 01:24 36.8 C 96 H 18 112/71 100 10/12/21 00:57 36.5 C 93 H 16 118/76 99 10/12/21 00:38 36.5 C 92 H 18 114/74 97 10/12/21 00:20 36.6 C 96 H 18 103/65 99 10/12/21 00:12 36.5 C 94 H 18 101/66 98 10/11/21 23:59 101 H 0112/22 23:53 36.7 C 93 H 20 125/77 96 10/11/21 23:00 36.8 C 100 H 20 108/68 100 Diagnostic Findings Cardiac Enzymes 10/12/21 Range/Units 07:31 AST 15 (13-39) U/L Coagulation 10/11/21 10/12/21 10/12/21 Range/Units 17:55 00:35 07:31 APTT 29.1 30.3 28.8 (21.0-31.0) Seconds CBC 10/11/21 10/11/21 10/11/21 Range/Units 11:05 12:56 20:42 WBC (4.8-10.8) K/uL RBC (4.2-5.4) M/uL Hgb 7.0 L 7.0 L 6.6 L* (12.0-16.0) g/dL Hct 23.3 L 23.0 L 21.8 L (37-47) % Plt Count (130-400) K/uL 10/12/21 Range/Units 07:31 WBC 13.15 H (4.8-10.8) K/uL RBC 3.06 L (4.2-5.4) M/uL Hgb 7.5 L (12.0-16.0) g/dL Hct 24.8 L (37-47) % Plt Count 80 L D (130-400) K/uL Comprehensive Metabolic Panel 10/12/21 Range/Units 07:31 Sodium 136 (136-145) mmol/L Potassium 3.5 (3.5-5.1) mmol/L Chloride 94 L (98-107) mmol/L Carbon Dioxide 33 H (21-32) mmol/L BUN 10 (6-23) mg/dl Creatinine 0.43 L (0.6-1.2) mg/dl Glucose 150 H (70-99) mg/dl Calcium 8.1 L (8.5-10.1) mg/dl AST 15 (13-39) U/L ALT < 3 L (7-52) U/L Alkaline Phosphatase 99 (34-104) U/L Total Protein 6.9 (6.0-8.3) gm/dl Albumin 2.5 L (3.4-5.0) gm/dl Intake and Output 10/11/21 10/12/21 10/12/21 22:59 06:59 14:59 Intake Total 160 / 1092.100 932.100 / 1092.100 490.8 / 490.8 Output Total 700 / 4675 875 / 4675 1500 / 1500 Balance -540 / -3582.900 57.100 / -3582.900 -1009.2 / -1009.2 Intake: IV 110 / 241.100 131.100 / 241.100 250.8 / 250.8 Doxycycline Hyclate 100 mg In 110 / 110 110 / 110 Dextrose 5% 100 ml @ 50 mls/hr IV Q12H [facility] Rx#:[id number] Heparin Sodium/Dextrose 25,000 131.100 / 131.100 140.8 / 140.8 units In 500 ml @ 1,200 UNITS/ HR 24 mls/hr IV .[id number] [facility] Rx #:[id number] Oral 50 / 575 525 / 575 240 / 240 Intake (Blood Product) Amt 276 / 276 Packed Cells, Leukoreduced 276 / 276 Unit [id number] Output: Urine Amount (Catheter) 700 / 4675 875 / 4675 1500 / 1500 [place]/Indwelling 700 / 4675 875 / 4675 1500 / 1500 Other: Weight 90.8 kg 86.9 kg Weight Measurement Method Built in [facility]
[2021-10-12] MEDS ORDERED: POTASSIUM CHLORIDE CRTAB 20 MEQ TABCR PO STA (10:14)
[2021-10-12 11:38] LABS: Appearance Urine Clear (Clear); Bacteria Urine Automated Negative (Negative); Bilirubin Urine Negative (Negative); Blood Urine Negative (Negative); Color Urine Yellow; Glucose Urine UA Negative (Negative); Ketones Urine Negative (Negative); Leukocyte Esterase Urine Negative (Negative); Nitrite Urine Negative (Negative); Protein Urine 1+ (Negative); RBC Urine Automated 0-4 /hpf (0-4); Specific Gravity Urine 1.018 (1.000-1.030); Urobilinogen Urine Negative (Negative); pH Urine 5.5 (4.5-7.5)
--- NOTE | 2021-10-12 15:33 | Communication Note ---
Date of Service: October 12, 2021 With the patient's permission, I called and spoke to her daughter, Shadia, phone number [phone]. Shadia had a tooth pulled today, and was not able to come to visit. She plans to visit tomorrow. I updated her with the events of the last 24 hours. I consider Ms Malagon to be stable ,however, still very ill.
[2021-10-12 16:47] LABS: Amphetamine Urine, Confirm 1090 ng/mL (<250); Marijuana Quant, GCMS Urine 16 ng/mL (<5); Methamphetamine, Ur Confirm 3910 ng/mL (<250)
[2021-10-12] MEDS: HEPARIN SODIUM/DEXTROSE 25,000 UNITS/500 ML BAG IV SCH (17:06)
--- NOTE | 2021-10-12 18:02 | Hospitalist Progress Note ---
Date of Service October 12, 2021 Assessment & Plan (1) Infective endocarditis of tricuspid valve: Plan: Infective endocarditis of tricuspid valve MSSA bacteremia As per Prior hospitalist Initial diagnosis of MSSA bacteremia on 08/30/2021 with complications of pneum onia required chest tube placement She was transferred to [facility] from [facility] and later on RODRIGUEZ showed large complex multilobar vegetations and tricuspid valve. She was put on intravenous cefazolin (to be taken until 10/19/2021) but signed out AMA and was sent on oral Keflex and rifampicin She showed up in [facility] and signed out AMA to come to [facility] on the day of admission with significant lab abnormalities as mentioned below Started with intravenous cefazolin and vancomycin Blood cultures grew MSSA and vancomycin was stopped Blood cultures growing gram-negative bacilli Appreciate ID input and recommendation Appreciated cardiology input and recommendation Continue cefazolin>> transition to cefepime, doxycycline Stable but critically ill Acute respiratory failure with hypoxia Multifocal pneumonia Acute PE Suspected Septic pulmonary embolism COVID screen negative Influenza, RSV screen negative -CTA:Positive CTA for pulmonary emboli within the right main and right lower lobe pulmonary arteries. No evidence for right heart strain. Extensive groundglass opacities are present throughout both lungs characteristic of a viral type pneumonitis and Covid 19 pneumonia. More confluent alveolar opacities are also present bilaterally with no air bronchograms. Small bilateral pleural effusions. -Continue IV heparin -Blood cultures initially growing MSSA Repeat blood cultures growing gram-negative bacilli Continue cefepime and doxycycline Nebs as needed Appreciate pulmonology input Waiting for tertiary care transfer Discitis/osteomyelitis with 5 cm epidural abscess at L4-5 level with encroaching upon the thecal sac MRI of the lumbar spine showed:Positive MRI demonstrating acute discitis at L4-5 with osteomyelitis of the adjacent L4 and L5 vertebral bodies. Additionally, there is an epidural abscess posterior to the L4 and L5 vertebral bodies encroaching upon the thecal sac as described above. Appreciate Ortho input Needs transfer to a tertiary care center for management of the epidural abscess Patient agreed with transfer as per prior hospitalist Prior hospitalist discussed with on-call spine surgeon Dr. Valle and discussed with hospitalist Dr. Boudreaux Waiting list to be transferred to [facility] (2) Pancytopenia: Plan: H/O significant thrombocytopenia since August and noted to be severely thrombocytopenic with pancytopenia during this admission Peripheral blood film did not support any specific diagnosis Suspected to be secondary to severe infection and may be complicated by having hepatitis C and recent use of rifampicin White blood cell count and platelet have been improving but hemoglobin remains low likely secondary to ongoing infection Iron studies are pending and B12 folate remains unremarkable, normal reticulocyte count and normal LDH Discussed with animal attendant-suggested to have abdominal CAT scan to rule out any splenomegaly and abscess CT of the abdomen did not show any intra-abdominal abscess but it showed hepatosplenomegaly Monitor CBC S/P 1 Unit PRBCs Hemoglobin 7.5, platelets 80 K today (3) Chronic pain syndrome: Plan: Has chronic pain and has been on Suboxone Complains to pain at the back, bilateral in the hands with hand swelling and bilaterally in the legs Appreciate Ortho input and recommendation for hand swelling and pain Appreciate pain therapy input and recommendation Suboxone doses have been increased (4) Opioid use disorder: Plan: History of intravenous opioid abuse Patient admits to taking--last time about in August (5) Upper extremity pain, diffuse: Plan: Due to swelling of both the hands Elevate UE Lasix PRN Bilateral lower extremity wound Wound care has been consulted Wound dressing Continue above Antibiotics (6) Disorder of electrolytes: Plan: Severe hypokalemia Replace and monitor (7) Hepatitis C carrier: Plan: History of hepatitis C carrier Liver function is abnormal INR and PTT are high Alkaline phos is borderline high Hepatitis C viral load has been pending in epic DVT prophylaxis on IV hepatin SCDs CODE STATUS Full Code Disposition Frandy Brewer when bed available Admission and Anticipated Discharge Date Admission Date: October 08, 2021 Subjective Patient is seen and examined at bedside States feeling very tired today Minimal hemoptysis today States having dyspnea Currently on 8 L supplemental oxygen Repeat blood cultures growing gram-negative bacilli Waiting to be transferred to tertiary care facility Review of Systems Review of Systems: All systems reviewed & are unremarkable except as noted in Subjective Physical Exam Physical Exam: Physical Exam: Vitals signs as noted above General Appearance:Ill appearing, no apparent distress Head: normocephalic, Atraumatic Eyes: normal inspection, EOMI Neck: supple, Trachea midline Respiratory/Chest: Decreased breath sounds, basal rales, No accessory muscle use Cardiovascular: S1, S2, tachycardic, +murmur Abdomen/GI:Soft, Non tender, Bowel sounds present Extremities/Musculoskeletal:normal inspection, B/L LE edema, + wounds in dressing Neurologic/Psych:AAOX3, grossly no focal neurological deficits Skin: normal color, warm Results & Data Results & Data ([facility]) Vital Signs (Past 12 Hours) Vital Signs Temp Pulse Pulse Resp BP Pulse Ox 10/12/21 16:00 110 H 10/12/21 15:16 37.0 C 100 H 20 106/55 L 95 10/12/21 10:41 36.7 C 97 H 17 110/67 95 10/12/21 08:00 93 H 10/12/21 07:32 36.7 C 96 H 18 118/70 98 Laboratory Results Short CBC 10/11/21 10/12/21 Range/Units 20:42 07:31 WBC 13.15 H (4.8-10.8) K/uL Hgb 6.6 L* 7.5 L (12.0-16.0) g/dL Hct 21.8 L 24.8 L (37-47) % Plt Count 80 L D (130-400) K/uL BMP 10/12/21 07:31 Sodium 136 Potassium 3.5 Chloride 94 L Carbon Dioxide 33 H BUN 10 Creatinine 0.43 L Glucose 150 H Calcium 8.1 L Liver Function 10/12/21 Range/Units 07:31 Total Bilirubin 0.6 (0.2-1.0) mg/dl AST 15 (13-39) U/L ALT < 3 L (7-52) U/L Alkaline Phosphatase 99 (34-104) U/L Albumin 2.5 L (3.4-5.0) gm/dl Urine 10/12/21 Range/Units 11:10 Urine Color Yellow Urine Appearance Clear (Clear) Urine pH 5.5 (4.5-7.5) Ur Specific [place] 1.018 (1.000-1.030) Urine Protein 1+ H (Negative) Urine Glucose (UA) Negative (Negative)
[2021-10-12] MEDS: MIRTAZAPINE TAB 15 MG TAB PO SCH (20:37)
[2021-10-13] MEDS: SODIUM CHLORIDE 0.65% NA SOLN 45 ML (OCEAN) SCH ×12 (01:45→21:04)
[2021-10-13] MEDS: CEFEPIME 2,000 MG in SYRINGE 0 ML IV SCH ×3 (02:52→19:01)
[2021-10-13] MEDS: POTASSIUM CHLORIDE CRTAB 20 MEQ TABCR PO SCH ×2 (05:37→13:37)
[2021-10-13] MEDS: DOXYCYCLINE HYCLATE 100 MG in DEXTROSE 5% 100 ML IV SCH ×2 (05:37→17:10)
[2021-10-13] MEDS: HYDROmorphone INJ 0.5 MG/0.5 ML SYR IV PRN (05:43)
[2021-10-13 05:50] LABS: Partial Thromboplastin Ratio 1.2; Partial Thromboplastin Time 32.8 Seconds (21.0-31.0)
[2021-10-13 06:01] LABS: Albumin Globulin Ratio 0.5 (0.9-2); Albumin Level 2.4 gm/dl (3.4-5.0); Bilirubin,Total 0.6 mg/dl (0.2-1.0); Calcium 8.2 mg/dl (8.5-10.1); Creatinine Clr Calc Pharmacy 201.4 ml/min; Est GFR (African American) 146.5 ml/min; Est GFR (Non-African American) 126.4 ml/min; Globulin 4.4 gm/dl (2.5-4.0); Potassium 3.9 mmol/L (3.5-5.1); Total Protein 6.8 gm/dl (6.0-8.3)
[2021-10-13 06:15] LABS: Hematocrit (blood only) 21.8 % (37-47); Hemoglobin 6.7 g/dL (12.0-16.0); Mean Corpuscular Hemoglobin 25.2 pg (25-34); Mean Corpuscular Hgb Conc 30.7 g/dL (32-36); Mean Platelet Volume 10.6 fL (7.4-10.4); Nucleated RBC # (auto) 0.03 K/uL (0-0); Nucleated RBC % (auto) 0.3 %; Platelet Count 134 K/uL (130-400); RDW Coefficient of Variation 22.7 % (11.5-14.5); RDW Standard Deviation 67.6 fL (36.4-46.3); Red Blood Count 2.66 M/uL (4.2-5.4); White Blood Count 11.25 K/uL (4.8-10.8)
[2021-10-13] MEDS ORDERED: SODIUM CHLORIDE 0.9% 250 ML IV PRN ×2 (06:18→09:10)
[2021-10-13] MEDS ORDERED: HEPARIN SOD (PORCINE) 1000 UNIT/ML IV ONE (07:00)
[2021-10-13] MEDS: HEPARIN SODIUM/DEXTROSE 25,000 UNITS/500 ML BAG IV SCH ×3 (07:29→19:36)
[2021-10-13] MEDS: BUPRENORPHINE/NALOXONE 8/2 MG TAB SL SCH (07:32)
[2021-10-13] MEDS: DICLOFENAC SOD 1% GEL 100 GM TUBE EXT SCH ×2 (07:32→20:39)
[2021-10-13] MEDS: LIDOCAINE 5% 1 PATCH TD SCH (07:32)
[2021-10-13] MEDS ORDERED: FUROSEMIDE INJ 20 MG/2 ML VIAL IV ONE ×2 (09:14→12:00)
--- NOTE | 2021-10-13 10:15 | XRay Report ---
SINGLE VIEW CHEST CLINICAL HISTORY: Hypoxia FINDINGS: An AP, portable, upright chest radiograph is compared to chest x-ray and chest CT dated 09/30. The cardiomediastinal silhouette is unremarkable. There is chronic elevation of the right hem idiaphragm. Extensive multifocal airspace consolidation is again seen throughout both lungs. A 2.6 cm more focal round opacity is again seen in the right lower lung, and there are small foci of cavitati on in the right lung. These were better assessed on the recent chest CT patchy Small pleural effusion s are suspected. No pneumothorax is seen. The bony thorax is grossly intact. IMPRESSION: Extensive/diffuse multifocal airspace consolidation throughout both lungs with small foci of cavitation the right has not appreciably changed from 10/11/2021. See above. ACT 112: Negative or not required by law. Electronically signed by: Abdirahman Abarca M.D. 10/13/2021 10:14 AM
[2021-10-13] MEDS ORDERED: POTASSIUM CHLORIDE CRTAB 20 MEQ TABCR PO STA (11:51)
--- NOTE | 2021-10-13 11:53 | Cardiology Progress Note ---
Date of Service October 13, 2021 Assessment & Plan (1) Infective endocarditis of tricuspid valve: (2) Osteomyelitis of lumbar spine: (3) MSSA bacteremia: (4) Gram-negative bacteremia: (5) Pulmonary embolism: (6) Pneumonia: (7) Pancytopenia: (8) Hypokalemia: Plan: 40-year-old female with history of tricuspid valve endocarditis now found to have back pain, acute L4-L5 discitis , 5 cm epidural abscess and spinal osteomyelitis. TTecho performed this admission revealed bulky TV vegetations (non mobile) with mild to moderate tricuspid regurgitation, Moderate right ventricular enlargement, and estimated PA systolic pressure elevated at 59 mm Hg. The mitral and aortic valves were functioning normally without regurgitation. She has had a progressive increase in oxygen requirement, development of bilateral infiltrates on chest x-ray, CT angiogram consistent with pneumonia as well as right-sided pulmonary emboli. Perhaps venous thromboembolic event, or septic emboli from the tricuspid valve. Lower extremity venous duplex negative. With caution, patient received 1 unit of packed red blood cells on 10/11/2021 to support her anemia, followed by another dose of furosemide, and has been on low- dose heparin -initiated 10/11/21. She is receiving another unit of PRBCs today, 10/13/21, given Hgb of 6.7 g/dl. Platelets improving , up to 134 K today, 10/13/21. Blood cultures obtained 10/11/2021, have revealed sserratia marcescens. Antibiotic coverage has been broadened from Ancef to cefepime plus IV doxycycline (10/12/21). Will continue to supplement her potassium, and will treat with furosemide 20 mg IV x daily, in effort to keep her intake and output even given need to administer IV fluids in the form of antibiotics. As previously noted, I am very concerned with regards to her overall degree of illness and multiple issues. She is NOT a surgical candidate for spine surgery or cardiac surgery at present due to pancytopenia , respiratory status, and even if she was to have one problem addressed surgically, she would still be at high risk of seeding from the other, and at present I do not think she would survive operative intervention. Best option therefore is ongoing supportive care with IV antibiotics, supplemental oxygen, and anticoagulation. Anticoagulation also NOT ideal in the setting of endocarditis, and generally contraindicated, however, given hypoxia and PE on CT appears to be clinically necessary and reasonable ast this is right sided endocarditis (rather than left sided) and new RV strain patter had been noted on ttecho this admission. She is young , however , very ill. Anticipate her daughter, Susan, whom I had updated by phone on 10/11/2021 and ,10/12/2021 to visit today. Admission and Anticipated Discharge Date Admission Date: October 08, 2021 Subjective Patient seen in cardiology follow up. Still requiring high oxygen supplementation via Oxymask, however pulse oximetry is 96%. Appears more comfortable. Back pain controlled at present. Afebrile. Physical Exam Constitutional: + ill appearing Cardiovascular: Rate/Rhythm: regular rate, regular rhythm and + tachycardic Heart Sounds: + murmur (2/6 SM murmur) Extremities: + edema (1+ edema ) Gastrointestinal (Abdomen): normal bowel sounds, soft, nontender, no hepat osplenomegaly Neurologic: conversant, follows commands. Results & Data ([facility]) Vital Signs (Past 12 Hours) Vital Signs Temp Pulse Pulse Resp BP BP Pulse Ox 10/13/21 11:33 36.8 C 108 H 20 109/65 96 10/13/21 10:17 37.0 C 99 H 20 112/68 92 10/13/21 09:25 37.0 C 100 H 20 110/65 92 10/13/21 08:25 36.9 C 100 H 18 110/78 90 10/13/21 07:55 36.9 C 100 H 18 115/64 90 10/13/21 07:40 36.9 C 102 H 20 114/69 92 10/13/21 07:21 37.0 C 90 18 112/68 90 10/13/21 03:41 36.2 C L 98 H 16 126/70 96 10/12/21 23:59 110 H Laboratory Results Cardiac Enzymes 10/13/21 Range/Units 05:27 AST 17 (13-39) U/L Coagulation 10/13/21 Range/Units 05:27 APTT 32.8 H (21.0-31.0) Seconds CBC 10/13/21 Range/Units 05:27 WBC 11.25 H (4.8-10.8) K/uL RBC 2.66 L (4.2-5.4) M/uL Hgb 6.7 L* (12.0-16.0) g/dL Hct 21.8 L (37-47) % Plt Count 134 D (130-400) K/uL Comprehensive Metabolic Panel 10/13/21 Range/Units 05:27 Sodium 134 L (136-145) mmol/L Potassium 3.9 (3.5-5.1) mmol/L Chloride 95 L (98-107) mmol/L Carbon Dioxide 34 H (21-32) mmol/L BUN 8 (6-23) mg/dl Creatinine 0.42 L (0.6-1.2) mg/dl Glucose 113 H (70-99) mg/dl Calcium 8.2 L (8.5-10.1) mg/dl AST 17 (13-39) U/L ALT 5 L (7-52) U/L Alkaline Phosphatase 77 (34-104) U/L Total Protein 6.8 (6.0-8.3) gm/dl Albumin 2.4 L (3.4-5.0) gm/dl Intake and Output 10/12/21 10/13/21 10/13/21 22:59 06:59 14:59 Intake Total 778.1 / 1948.5 679.6 / 1948.5 129.8 / 129.8 Output Total 1050 / 4750 1200 / 4750 Balance -271.9 / -2801.5 -520.4 / -2801.5 129.8 / 129.8 Intake: IV 338.1 / 908.5 319.6 / 908.5 129.8 / 129.8 Doxycycline Hyclate 100 mg In 110 / 220 110 / 110 Dextrose 5% 100 ml @ 50 mls/hr IV Q12H [facility] Rx#:[id number] Heparin Sodium/Dextrose 25,000 228.1 / 688.5 319.6 / 688.5 19.8 / 19.8 units In 500 ml @ 1,200 UNITS/ HR 24 mls/hr IV .[id number] [facility] Rx #:[id number] Oral 440 / 1040 360 / 1040 Intake (Blood Product) Amt 0 / 0 Packed Cells, Leukoreduced 2 0 / 0 Unit [id number] Output: Urine Amount (Catheter) 1050 / 4750 1200 / 4750 [place]/Indwelling 1050 / 4750 1200 / 4750
[2021-10-13 13:26] LABS: Partial Thromboplastin Ratio 1.7; Partial Thromboplastin Time 44.9 Seconds (21.0-31.0)
[2021-10-13 15:59] LABS: Hematocrit (blood only) 25.4 % (37-47); Hemoglobin 7.6 g/dL (12.0-16.0)
--- NOTE | 2021-10-13 17:43 | Hospitalist Progress Note ---
Date of Service October 13, 2021 Assessment & Plan (1) Infective endocarditis of tricuspid valve: Plan: Infective endocarditis of tricuspid valve MSSA bacteremia As per Prior hospitalist Initial diagnosis of MSSA bacteremia on 08/30/2021 with complications of pneum onia required chest tube placement She was transferred to [place] from [facility] and later on [facility] showed large complex multilobar vegetations and tricuspid valve. She was put on intravenous cefazolin (to be taken until 10/19/2021) but signed out AMA and was sent on oral Keflex and rifampicin She showed up in [facility] and signed out AMA to come to [facility] on the day of admission with significant lab abnormalities as mentioned below Started with intravenous cefazolin and vancomycin Blood cultures grew MSSA and vancomycin was stopped Blood cultures growing Serratia Appreciate ID input and recommendation Appreciated cardiology input and recommendation Continue cefazolin>> transition to cefepime, doxycycline Continue current antibiotics Afebrile today Repeat blood cultures from 10/12/21 showed no growth preliminarily Acute respiratory failure with hypoxia Multifocal pneumonia Acute PE Suspected Septic pulmonary embolism COVID screen negative Influenza, RSV screen negative -CTA:Positive CTA for pulmonary emboli within the right main and right lower lobe pulmonary arteries. No evidence for right heart strain. Extensive groundglass opacities are present throughout both lungs characteristic of a viral type pneumonitis and Covid 19 pneumonia. More confluent alveolar opacities are also present bilaterally with no air bronchograms. Small bilateral pleural effusions. -Continue IV heparin -Blood cultures initially growing MSSA, Serratia Continue cefepime and doxycycline Nebs as needed Appreciate pulmonology input Waiting for tertiary care transfer Continue supplemental oxygen as needed Discitis/osteomyelitis with 5 cm epidural abscess at L4-5 level with encroaching upon the thecal sac MRI of the lumbar spine showed:Positive MRI demonstrating acute discitis at L4-5 with osteomyelitis of the adjacent L4 and L5 vertebral bodies. Additionally, there is an epidural abscess posterior to the L4 and L5 vertebral bodies encroaching upon the thecal sac as described above. Appreciate Ortho input Needs transfer to a tertiary care center for management of the epidural abscess Patient agreed with transfer as per prior hospitalist Prior hospitalist discussed with on-call spine surgeon Dr. Valle and discussed with hospitalist Dr. Boudreaux Waiting list to be transferred to [place] (2) Pancytopenia: Plan: H/O significant thrombocytopenia since August and noted to be severely thrombocytopenic with pancytopenia during this admission Peripheral blood film did not support any specific diagnosis Suspected to be secondary to severe infection and may be complicated by having hepatitis C and recent use of rifampicin White blood cell count and platelet have been improving but hemoglobin remains low likely secondary to ongoing infection Iron studies are pending and B12 folate remains unremarkable, normal reticulocyte count and normal LDH Discussed with studio engineer-suggested to have abdominal CAT scan to rule out any splenomegaly and abscess CT of the abdomen did not show any intra-abdominal abscess but it showed hepatosplenomegaly Monitor CBC S/P 2 Unit PRBCs HB 6.7 today Thrombocytopenia resolved (3) Chronic pain syndrome: Plan: Has chronic pain and has been on Suboxone Complains to pain at the back, bilateral in the hands with hand swelling and bilaterally in the legs Appreciate Ortho input and recommendation for hand swelling and pain Appreciate pain therapy input and recommendation Suboxone doses have been increased (4) Opioid use disorder: Plan: History of intravenous opioid abuse Patient admits to taking--last time about in August (5) Upper extremity pain, diffuse: Plan: Due to swelling of both the hands Elevate UE Lasix PRN Bilateral lower extremity wound Wound care has been consulted Wound dressing Continue above Antibiotics (6) Disorder of electrolytes: Plan: Severe hypokalemia Replace and monitor (7) Hepatitis C carrier: Plan: History of hepatitis C carrier Liver function is abnormal INR and PTT are high Alkaline phos is borderline high Hepatitis C viral load has been pending in [facility] DVT prophylaxis on IV hepatin SCDs CODE STATUS Full Code Disposition [facility] [place] when bed available Admission and Anticipated Discharge Date Admission Date: October 08, 2021 Subjective Patient is seen and examined at bedside Hemoglobin dropped to 6.7 today Afebrile No new complaints Denies any significant hemoptysis Currently requiring 12 L supplemental oxygen Review of Systems Review of Systems: All systems reviewed & are unremarkable except as noted in Subjective Physical Exam Physical Exam: Physical Exam: Vitals signs as noted above General Appearance:Ill appearing, no apparent distress Head: normocephalic, Atraumatic Eyes: normal inspection, EOMI Neck: supple, Trachea midline Respiratory/Chest: Decreased breath sounds, basal rales, No accessory muscle use Cardiovascular: S1, S2, tachycardic, +murmur Abdomen/GI:Soft, Non tender, Bowel sounds present Extremities/Musculoskeletal:normal inspection, B/L LE edema, + wounds in dress ing Neurologic/Psych:AAOX3, grossly no focal neurological deficits Skin: normal color, warm Results & Data Results & Data ([facility]) Vital Signs (Past 12 Hours) Vital Signs Temp Pulse Pulse Resp BP BP Pulse Ox 10/13/21 15:38 36.2 C L 89 20 113/66 98 10/13/21 11:33 36.8 C 108 H 20 109/65 96 10/13/21 10:17 37.0 C 99 H 20 112/68 92 10/13/21 09:25 37.0 C 100 H 20 110/65 92 10/13/21 08:25 36.9 C 100 H 18 110/78 90 10/13/21 07:55 36.9 C 100 H 18 115/64 90 10/13/21 07:40 36.9 C 102 H 20 114/69 92 10/13/21 07:21 37.0 C 90 18 112/68 90 Laboratory Results Short CBC 10/13/21 10/13/21 Range/Units 05:27 15:43 WBC 11.25 H (4.8-10.8) K/uL Hgb 6.7 L* 7.6 L (12.0-16.0) g/dL Hct 21.8 L 25.4 L (37-47) % Plt Count 134 D (130-400) K/uL BMP 10/13/21 05:27 Sodium 134 L Potassium 3.9 Chloride 95 L Carbon Dioxide 34 H BUN 8 Creatinine 0.42 L Glucose 113 H Calcium 8.2 L Liver Function 10/13/21 Range/Units 05:27 Total Bilirubin 0.6 (0.2-1.0) mg/dl AST 17 (13-39) U/L ALT 5 L (7-52) U/L Alkaline Phosphatase 77 (34-104) U/L Albumin 2.4 L (3.4-5.0) gm/dl
[2021-10-13 19:28] LABS: Partial Thromboplastin Time 27.1 Seconds (21.0-31.0)
[2021-10-13] MEDS ORDERED: HEPARIN IV BOLUS 4,500 UNITS in SYRINGE 0 ML IV ONE (20:00)
[2021-10-13] MEDS: MIRTAZAPINE TAB 15 MG TAB PO SCH (20:39)
[2021-10-13 21:25] LABS: Hematocrit (blood only) 25.8 % (37-47); Hemoglobin 7.8 g/dL (12.0-16.0)
[2021-10-14] MEDS: SODIUM CHLORIDE 0.65% NA SOLN 45 ML (OCEAN) SCH ×13 (00:49→23:45)
[2021-10-14] MEDS: CEFEPIME 2,000 MG in SYRINGE 0 ML IV SCH ×2 (02:14→11:07)
[2021-10-14 02:27] LABS: Hematocrit (blood only) 24.7 % (37-47); Hemoglobin 7.4 g/dL (12.0-16.0); Mean Corpuscular Hemoglobin 25.3 pg (25-34); Mean Corpuscular Volume 84.3 fL (80-100); Mean Platelet Volume 10.4 fL (7.4-10.4); Platelet Count 181 K/uL (130-400); RDW Coefficient of Variation 22.1 % (11.5-14.5); RDW Standard Deviation 65.7 fL (36.4-46.3); Red Blood Count 2.93 M/uL (4.2-5.4)
[2021-10-14 02:37] LABS: Partial Thromboplastin Ratio 1.3; Partial Thromboplastin Time 34.3 Seconds (21.0-31.0)
[2021-10-14 02:46] LABS: BUN Creatinine Ratio 18.8 (10-20); Calcium 8.2 mg/dl (8.5-10.1); Creatinine Clr Calc Pharmacy 176.2 ml/min; Est GFR (African American) 140.2 ml/min; Potassium 4.2 mmol/L (3.5-5.1)
[2021-10-14] MEDS ORDERED: HEPARIN SOD (PORCINE) 1000 UNIT/ML IV ONE ×3 (03:30→19:28)
[2021-10-14] MEDS: DOXYCYCLINE HYCLATE 100 MG in DEXTROSE 5% 100 ML IV SCH ×2 (05:26→17:26)
[2021-10-14] MEDS: POTASSIUM CHLORIDE CRTAB 20 MEQ TABCR PO SCH ×2 (05:27→13:25)
[2021-10-14] MEDS: DICLOFENAC SOD 1% GEL 100 GM TUBE EXT SCH ×2 (08:01→20:45)
[2021-10-14] MEDS: FUROSEMIDE INJ 20 MG/2 ML VIAL IV SCH (08:02)
[2021-10-14] MEDS: LIDOCAINE 5% 1 PATCH TD SCH (08:02)
[2021-10-14] MEDS: BUPRENORPHINE/NALOXONE 8/2 MG TAB SL SCH (08:10)
[2021-10-14 09:46] LABS: Partial Thromboplastin Ratio 1.2; Partial Thromboplastin Time 32.8 Seconds (21.0-31.0)
[2021-10-14] MEDS: HEPARIN SODIUM/DEXTROSE 25,000 UNITS/500 ML BAG IV SCH ×2 (09:58→22:22)
[2021-10-14] MEDS ORDERED: HEPARIN IV BOLUS 3,000 UNITS in SYRINGE 0 ML IV ONE (10:30)
--- NOTE | 2021-10-14 13:39 | Cardiology Progress Note ---
Date of Service October 14, 2021 Assessment & Plan (1) Infective endocarditis of tricuspid valve: (2) Osteomyelitis of lumbar spine: (3) MSSA bacteremia: (4) Gram-negative bacteremia: (5) Pulmonary embolism: (6) Pneumonia: (7) Pancytopenia: (8) Hypokalemia: Plan: 40-year-old female with history of tricuspid valve endocarditis now found to have back pain, acute L4-L5 discitis , 5 cm epidural abscess and spinal osteomyelitis. TTecho performed this admission revealed bulky TV vegetations (non mobile) with mild to moderate tricuspid regurgitation, Moderate right ventricular enlargement, and estimated PA systolic pressure elevated at 59 mm Hg. The mitral and aortic valves were functioning normally without regurgitation. She has had a progressive increase in oxygen requirement, development of bilateral infiltrates on chest x-ray, CT angiogram consistent with pneumonia as well as right-sided pulmonary emboli. Perhaps venous thromboembolic event, or septic emboli from the tricuspid valve. Lower extremity venous duplex negative. With caution, patient received 1 unit of packed red blood cells on 10/11/2021 to support her anemia, followed by another dose of furosemide, and has been on low- dose heparin -initiated 10/11/21. She is receiving another unit of PRBCs today, 10/13/21, given Hgb of 6.7 g/dl. Platelets improving , up to 134 K today, 10/13/21. Blood cultures obtained 10/11/2021, have revealed sserratia marcescens. Antibiotic coverage has been broadened from Ancef to cefepime plus IV doxycycline (10/12/21). Will continue to supplement her potassium, and will treat with furosemide 20 mg IV x daily, in effort to keep her intake and output even given need to administer IV fluids in the form of antibiotics. As previously noted, I am very concerned with regards to her overall degree of illness and multiple issues. She is NOT a surgical candidate for spine surgery or cardiac surgery at present due to pancytopenia , respiratory status, and even if she was to have one problem addressed surgically, she would still be at high risk of seeding from the other, and at present I do not think she would survive operative intervention. Best option therefore is ongoing supportive care with IV antibiotics, supplemental oxygen, and anticoagulation. Anticoagulation also NOT ideal in the setting of endocarditis, and generally contraindicated, however, given hypoxia and PE on CT appears to be clinically necessary and reasonable ast this is right sided endocarditis (rather than left sided) and new RV strain patter had been noted on ttecho this admission. Admission and Anticipated Discharge Date Admission Date: October 08, 2021 Subjective Patient seen and examined, chart reviewed. No significant events overnight. Patient with continued complaints of shortness of breath. Continues to diurese well with over 5 L negative in 24 hours and now 7 L negative total. Review of Systems Review of Systems: All systems reviewed & are unremarkable except as noted in HPI & below Physical Exam Physical Exam: General: Awake, alert and oriented x 3. Ill-appearing HEENT: Normocephalic, atraumatic. Pupils equal, round and reactive to light and accommodation. Extraocular muscles are intact. Anicteric sclera. Moist mucous membranes. Neck: No JVD. No bruit. Cardiovascular: Regular. Positive S-4. Normal S-1 and S-2. No S-3. 3/6 holosystolic ejection murmur, 5th intercostal space, mid-clavicular line without radiation. No rubs. Pulmonary: Clear to auscultation bilaterally. No rales, rhonchi, or wheezing. Abdomen: Bowel sounds x 4, soft. No rebound, guarding or tenderness. No organomegaly. Extremities: No clubbing, cyanosis or edema. +2 pedal pulses bilaterally. Skin: Warm and dry. Results & Data ([facility]) Vital Signs (Past 12 Hours) Vital Signs Temp Pulse Resp BP Pulse Ox 10/14/21 11:12 36.8 C 98 H 20 126/67 98 10/14/21 07:24 36.9 C 88 20 110/64 98 10/14/21 03:28 36.7 C 87 22 107/67 97
[2021-10-14] MEDS: ACETAMINOPHEN 325 MG TAB PO PRN (17:26)
[2021-10-14 17:27] LABS: Partial Thromboplastin Ratio 1.1; Partial Thromboplastin Time 29.4 Seconds (21.0-31.0)
[2021-10-14] MEDS: HYDROmorphone INJ 0.5 MG/0.5 ML SYR IV PRN (17:42)
[2021-10-14] MEDS ORDERED: PIPERACILL/TAZOBAC CONSULT ACTIVE PRN (18:59)
--- NOTE | 2021-10-14 19:05 | Hospitalist Progress Note ---
Date of Service October 14, 2021 Assessment & Plan (1) Infective endocarditis of tricuspid valve: Plan: Infective endocarditis of tricuspid valve MSSA bacteremia As per Prior hospitalist Initial diagnosis of MSSA bacteremia on 08/30/2021 with complications of pneum onia required chest tube placement She was transferred to [place] from [facility] and later on [facility] showed large complex multilobar vegetations and tricuspid valve. She was put on intravenous cefazolin (to be taken until 10/19/2021) but signed out AMA and was sent on oral Keflex and rifampicin She showed up in [facility] and signed out AMA to come to [facility] on the day of admission with significant lab abnormalities as mentioned below Started with intravenous cefazolin and vancomycin Blood cultures grew MSSA and vancomycin was stopped Blood cultures growing Serratia Appreciate ID input and recommendation Appreciated cardiology input and recommendation Continue cefazolin>> cefepime, doxycycline>> Zosyn, Doxy Continue current antibiotics Afebrile today Repeat blood cultures from 10/12/21 showed no growth to date Febrile today Will broaden IV antibiotics to doxycycline and Zosyn Will repeat blood cultures today Waiting for transfer to tertiary care facility Acute respiratory failure with hypoxia Multifocal pneumonia Acute PE Suspected Septic pulmonary embolism COVID screen negative Influenza, RSV screen negative -CTA:Positive CTA for pulmonary emboli within the right main and right lower lobe pulmonary arteries. No evidence for right heart strain. Extensive groundglass opacities are present throughout both lungs characteristic of a viral type pneumonitis and Covid 19 pneumonia. More confluent alveolar opacities are also present bilaterally with no air bronchograms. Small bilateral pleural effusions. -Continue IV heparin -Blood cultures initially growing MSSA, Serratia Continue cefepime and doxycycline Nebs as needed Appreciate pulmonology input Waiting for tertiary care transfer Continue supplemental oxygen as needed Discitis/osteomyelitis with 5 cm epidural abscess at L4-5 level with encroaching upon the thecal sac MRI of the lumbar spine showed:Positive MRI demonstrating acute discitis at L4-5 with osteomyelitis of the adjacent L4 and L5 vertebral bodies. Additionally, there is an epidural abscess posterior to the L4 and L5 vertebral bodies encroaching upon the thecal sac as described above. Appreciate Ortho input Needs transfer to a tertiary care center for management of the epidural abscess Patient agreed with transfer as per prior hospitalist Prior hospitalist discussed with on-call spine surgeon Dr. Valle and discussed with hospitalist Dr. Staar Waiting list to be transferred to [place] (2) Pancytopenia: Plan: H/O significant thrombocytopenia since August and noted to be severely thrombocytopenic with pancytopenia during this admission Peripheral blood film did not support any specific diagnosis Suspected to be secondary to severe infection and may be complicated by having hepatitis C and recent use of rifampicin White blood cell count and platelet have been improving but hemoglobin remains l ow likely secondary to ongoing infection Iron studies are pending and B12 folate remains unremarkable, normal reticulocyte count and normal LDH Discussed with contract design agent-suggested to have abdominal CAT scan to rule out any splenomegaly and abscess CT of the abdomen did not show any intra-abdominal abscess but it showed hepatosplenomegaly Monitor CBC S/P 2 Unit PRBCs HB 7.4today Thrombocytopenia resolved (3) Chronic pain syndrome: Plan: Has chronic pain and has been on Suboxone Complains to pain at the back, bilateral in the hands with hand swelling and bilaterally in the legs Appreciate Ortho input and recommendation for hand swelling and pain Appreciate pain therapy input and recommendation Suboxone doses have been increased (4) Opioid use disorder: Plan: History of intravenous opioid abuse Patient admits to taking--last time about in August (5) Upper extremity pain, diffuse: Plan: Due to swelling of both the hands Elevate UE Lasix PRN Bilateral lower extremity wound Wound care has been consulted Continue Wound care Continue above Antibiotics (6) Disorder of electrolytes: Plan: Severe hypokalemia Replace and monitor (7) Hepatitis C carrier: Plan: History of hepatitis C carrier Liver function is abnormal INR and PTT are high Alkaline phos is borderline high Hepatitis C viral load has been pending in [facility] DVT prophylaxis on IV hepatin SCDs CODE STATUS Full Code Disposition [facility] when bed available Admission and Anticipated Discharge Date Admission Date: October 08, 2021 Subjective Patient is seen and examined at bedside Subjectively feels no significant change from yesterday Denies any hemoptysis Febrile today Hemoglobin 7.4 Leukocytosis stable Denies any chest pain, dizziness, nausea, abdominal pain Currently requiring 15 L supplemental oxygen Review of Systems Review of Systems: All systems reviewed & are unremarkable except as noted in Subjective Physical Exam Physical Exam: Physical Exam: Vitals signs as noted above General Appearance:Ill appearing, no apparent distress Head: normocephalic, Atraumatic Eyes: normal inspection, EOMI Neck: supple, Trachea midline Respiratory/Chest: Decreased breath sounds, basal rales, No accessory muscle use Cardiovascular: S1, S2, tachycardic, +murmur Abdomen/GI:Soft, Non tender, Bowel sounds present Extremities/Musculoskeletal:normal inspection, B/L LE edema, + wounds in dressing Neurologic/Psych:AAOX3, grossly no focal neurological deficits Skin: normal color, warm Results & Data Results & Data ([facility]) Vital Signs (Past 12 Hours) Vital Signs Temp Pulse Resp BP Pulse Ox 10/14/21 17:55 39.3 C H 10/14/21 17:24 38.8 C H 127 H 24 120/67 91 10/14/21 15:34 37.3 C 97 H 19 101/63 97 10/14/21 11:12 36.8 C 98 H 20 126/67 98 10/14/21 07:24 36.9 C 88 20 110/64 98 Laboratory Results Short CBC 10/13/21 10/14/21 Range/Units 20:44 02:17 WBC 11.70 H (4.8-10.8) K/uL Hgb 7.8 L 7.4 L (12.0-16.0) g/dL Hct 25.8 L 24.7 L (37-47) % Plt Count 181 (130-400) K/uL BMP 10/14/21 02:17 Sodium 134 L Potassium 4.2 Chloride 96 L Carbon Dioxide 34 H BUN 9 Creatinine 0.48 L Glucose 113 H Calcium 8.2 L
[2021-10-14] MEDS ORDERED: PIPERACILLIN/TAZOBACTAM 3.375 GM in DEXTROSE 5% 100 ML IV ONE (19:15)
[2021-10-14 19:22] LABS: Partial Thromboplastin Ratio 1.3; Partial Thromboplastin Time 33.3 Seconds (21.0-31.0)
[2021-10-14] MEDS: MIRTAZAPINE TAB 15 MG TAB PO SCH (20:45)
[2021-10-15] MEDS: SODIUM CHLORIDE 0.65% NA SOLN 45 ML (OCEAN) SCH ×12 (01:45→23:29)
[2021-10-15 02:25] LABS: Hematocrit (blood only) 25.2 % (37-47); Hemoglobin 7.5 g/dL (12.0-16.0); Mean Corpuscular Hgb Conc 29.8 g/dL (32-36); Mean Platelet Volume 9.8 fL (7.4-10.4); Platelet Count 205 K/uL (130-400); RDW Standard Deviation 66.3 fL (36.4-46.3); White Blood Count 15.44 K/uL (4.8-10.8)
[2021-10-15 02:40] LABS: Partial Thromboplastin Ratio 1.5; Partial Thromboplastin Time 39.2 Seconds (21.0-31.0)
[2021-10-15 02:49] LABS: Anion Gap 3 (3-11); BUN Creatinine Ratio 24.3 (10-20); Blood Urea Nitrogen 9 mg/dl (6-23); Calcium 8.2 mg/dl (8.5-10.1); Carbon Dioxide 34 mmol/L (21-32); Chloride 98 mmol/L (98-107); Creatinine Clr Calc Pharmacy 228.6 ml/min; Est GFR (African American) > 150.0 ml/min; Est GFR (Non-African American) 131.8 ml/min; Glucose 116 mg/dl (70-99); Potassium 3.9 mmol/L (3.5-5.1); Sodium 135 mmol/L (136-145)
[2021-10-15] MEDS: DOXYCYCLINE HYCLATE 100 MG in DEXTROSE 5% 100 ML IV SCH ×2 (05:46→17:21)
[2021-10-15] MEDS: LIDOCAINE 5% 1 PATCH TD SCH (07:55)
[2021-10-15] MEDS: BUPRENORPHINE/NALOXONE 8/2 MG TAB SL SCH (07:55)
[2021-10-15] MEDS: DICLOFENAC SOD 1% GEL 100 GM TUBE EXT SCH ×2 (07:55→20:27)
[2021-10-15] MEDS: FUROSEMIDE INJ 20 MG/2 ML VIAL IV SCH (07:56)
[2021-10-15] MEDS: PIPERACILLIN/TAZOBACTAM 3.375 GM in DEXTROSE 5% 100 ML IV SCH ×2 (07:57)
[2021-10-15] MEDS: POTASSIUM CHLORIDE CRTAB 20 MEQ TABCR PO SCH ×2 (07:57→13:47)
[2021-10-15] MEDS: HEPARIN SODIUM/DEXTROSE 25,000 UNITS/500 ML BAG IV SCH ×2 (09:47→20:28)
[2021-10-15 10:49] LABS: Partial Thromboplastin Ratio 1.3
[2021-10-15] MEDS ORDERED: HEPARIN SOD (PORCINE) 1000 UNIT/ML IV ONE ×2 (11:10→18:11)
--- NOTE | 2021-10-15 13:30 | Cardiology Progress Note ---
Date of Service October 15, 2021 Assessment & Plan (1) Infective endocarditis of tricuspid valve: (2) Osteomyelitis of lumbar spine: (3) MSSA bacteremia: (4) Gram-negative bacteremia: (5) Pulmonary embolism: (6) Pneumonia: (7) Pancytopenia: (8) Hypokalemia: Plan: 40-year-old female with history of tricuspid valve endocarditis now found to have back pain, acute L4-L5 discitis , 5 cm epidural abscess and spinal osteomyelitis. TTecho performed this admission revealed bulky TV vegetations (non mobile) with mild to moderate tricuspid regurgitation, Moderate right ventricular enlargement, and estimated PA systolic pressure elevated at 59 mm Hg. The mitral and aortic valves were functioning normally without regurgitation. She has had a progressive increase in oxygen requirement, development of bilateral infiltrates on chest x-ray, CT angiogram consistent with pneumonia as well as right-sided pulmonary emboli. Perhaps venous thromboembolic event, or septic emboli from the tricuspid valve. Lower extremity venous duplex negative. With caution, patient received 1 unit of packed red blood cells on 10/11/2021 to support her anemia, followed by another dose of furosemide, and has been on low- dose heparin -initiated 10/11/21. Hemoglobin stable at 7.5 today Blood cultures obtained 10/11/2021, have revealed sserratia marcescens. Antibiotic coverage has been broadened from Ancef to cefepime plus IV doxycycline (10/12/21). Will continue to supplement her potassium, and will treat with furosemide 20 mg IV x daily, in effort to keep her intake and output even given need to administer IV fluids in the form of antibiotics. As previously noted, I am very concerned with regards to her overall degree of illness and multiple issues. She is NOT a surgical candidate for spine surgery or cardiac surgery at present due to pancytopenia , respiratory status, and even if she was to have one problem addressed surgically, she would still be at high risk of seeding from the other, and at present I do not think she would survive operative intervention. Best option therefore is ongoing supportive care with IV antibiotics, supplemental oxygen, and anticoagulation. Anticoagulation also NOT ideal in the setting of endocarditis, and generally contraindicated, however, given hypoxia and PE on CT appears to be clinically necessary and reasonable ast this is right sided endocarditis (rather than left sided) and new RV strain patter had been noted on ttecho this admission. Admission and Anticipated Discharge Date Admission Date: October 08, 2021 Subjective Patient seen and examined, chart reviewed and case discussed with nursing staff. Remains somewhat lethargic. Does not voice any complaints overnight. Telemetry reviewed: Normal sinus rhythm/sinus tachycardia Review of Systems Review of Systems: Unobtainable due to cognitive status Physical Exam Physical Exam: General: Awake, somewhat responsive to questioning. No acute distress. HEENT: Normocephalic, atraumatic. Pupils equal, round and reactive to light and accommodation. Extraocular muscles are intact. Anicteric sclera. Moist mucous membranes. Neck: No JVD. No bruit. Cardiovascular: Regular. Positive S-4. Normal S-1 and S-2. No S-3. 3/6 holosystolic ejection murmur, 5th intercostal space, mid-clavicular line without radiation. No rubs. Pulmonary: Clear to auscultation bilaterally. No rales, rhonchi, or wheezing. Abdomen: Bowel sounds x 4, soft. No rebound, guarding or tenderness. No organomegaly. Extremities: No clubbing, cyanosis or edema. +2 pedal pulses bilaterally. Skin: Warm and dry. Results & Data ([facility]) Vital Signs (Past 12 Hours) Vital Signs Temp Pulse Resp BP BP Pulse Ox 10/15/21 12:13 36.8 C 99 H 20 105/67 100 10/15/21 08:06 36.7 C 99 H 20 108/70 100 10/15/21 03:09 36.5 C 83 16 104/68 100
--- NOTE | 2021-10-15 14:50 | Hospitalist Progress Note ---
Date of Service October 15, 2021 Assessment & Plan (1) Infective endocarditis of tricuspid valve: Plan: Infective endocarditis of tricuspid valve MSSA bacteremia As per Prior hospitalist Initial diagnosis of MSSA bacteremia on 08/30/2021 with complications of pneum onia required chest tube placement She was transferred to [place] from [facility] and later on RODRIGUEZ showed large complex multilobar vegetations and tricuspid valve. She was put on intravenous cefazolin (to be taken until 10/19/2021) but signed out AMA and was sent on oral Keflex and rifampicin She showed up in [facility] and signed out AMA to come to [facility] on the day of admission with significant lab abnormalities as mentioned below Started with intravenous cefazolin and vancomycin Blood cultures grew MSSA and vancomycin was stopped Blood cultures growing Serratia Appreciate ID input and recommendation Appreciated cardiology input and recommendation Continue cefazolin>> cefepime, doxycycline>> Zosyn, Doxy Repeat blood cultures from 10/12/21 showed no growth to date 10/14/21: Pending Waiting for transfer to tertiary care facility Continue current management Persistent leukocytosis Acute respiratory failure with hypoxia Multifocal pneumonia Acute PE Suspected Septic pulmonary embolism COVID screen negative Influenza, RSV screen negative -CTA:Positive CTA for pulmonary emboli within the right main and right lower lobe pulmonary arteries. No evidence for right heart strain. Extensive groundglass opacities are present throughout both lungs characteristic of a viral type pneumonitis and Covid 19 pneumonia. More confluent alveolar opacities are also present bilaterally with no air bronchograms. Small bilateral pleural effusions. -Continue IV heparin -Blood cultures initially growing MSSA, Serratia Continue cefepime and doxycycline Nebs as needed Appreciate pulmonology input Waiting for tertiary care transfer Continue supplemental oxygen as needed Currently on 14 L supplemental oxygen Discitis/osteomyelitis with 5 cm epidural abscess at L4-5 level with encroaching upon the thecal sac MRI of the lumbar spine showed:Positive MRI demonstrating acute discitis at L4-5 with osteomyelitis of the adjacent L4 and L5 vertebral bodies. Additionally, there is an epidural abscess posterior to the L4 and L5 vertebral bodies encroaching upon the thecal sac as described above. Appreciate Ortho input Needs transfer to a tertiary care center for management of the epidural abscess Patient agreed with transfer as per prior hospitalist Prior hospitalist discussed with on-call spine surgeon Dr. Valle and discussed with hospitalist Dr. Boudreaux Waiting list to be transferred to [place] (2) Pancytopenia: Plan: H/O significant thrombocytopenia since August and noted to be severely thrombocytopenic with pancytopenia during this admission Peripheral blood film did not support any specific diagnosis Suspected to be secondary to severe infection and may be complicated by having hepatitis C and recent use of rifampicin White blood cell count and platelet have been improving but hemoglobin remains low likely secondary to ongoing infection Iron studies are pending and B12 folate remains unremarkable, normal reticulocyte count and normal LDH Discussed with maintenance chief-suggested to have abdominal CAT scan to rule out any splenomegaly and abscess CT of the abdomen did not show any intra-abdominal abscess but it showed hepatosplenomegaly Monitor CBC S/P 2 Unit PRBCs HB 7.5 today Thrombocytopenia resolved (3) Chronic pain syndrome: Plan: Has chronic pain and has been on Suboxone Complains to pain at the back, bilateral in the hands with hand swelling and bilaterally in the legs Appreciate Ortho input and recommendation for hand swelling and pain Appreciate pain therapy input and recommendation Suboxone doses have been increased (4) Opioid use disorder: Plan: History of intravenous opioid abuse Patient admits to taking--last time about in August (5) Upper extremity pain, diffuse: Plan: Due to swelling of both the hands Elevate UE Lasix PRN Bilateral lower extremity wound Wound care has been consulted Continue Wound care Continue above Antibiotics (6) Disorder of electrolytes: Plan: Severe hypokalemia Replace and monitor (7) Hepatitis C carrier: Plan: History of hepatitis C carrier Liver function is abnormal INR and PTT are high Alkaline phos is borderline high Hepatitis C viral load has been pending in [facility] DVT prophylaxis on IV hepatin SCDs CODE STATUS Full Code Disposition [facility] when bed available Admission and Anticipated Discharge Date Admission Date: October 08, 2021 Subjective Patient is seen and examined at bedside States having shoulder, back pain Less cough today Hemoglobin stable Denies any chest pain, dizziness, nausea, abdominal pain Currently requiring 14 L supplemental oxygen Hemoptysis resolved Review of Systems Review of Systems: All systems reviewed & are unremarkable except as noted in Subjective Physical Exam Physical Exam: Physical Exam: Vitals signs as noted above General Appearance:Ill appearing, no apparent distress Head: normocephalic, Atraumatic Eyes: normal inspection, EOMI Neck: supple, Trachea midline Respiratory/Chest: Decreased breath sounds, basal rales, No accessory muscle use Cardiovascular: S1, S2, tachycardic, +murmur Abdomen/GI:Soft, Non tender, Bowel sounds present Extremities/Musculoskeletal:normal inspection, B/L LE edema, + wounds in d ressing Neurologic/Psych:AAOX3, grossly no focal neurological deficits Skin: normal color, warm Results & Data Results & Data ([facility]) Vital Signs (Past 12 Hours) Vital Signs Temp Pulse Resp BP BP Pulse Ox 10/15/21 12:13 36.8 C 99 H 20 105/67 100 10/15/21 08:06 36.7 C 99 H 20 108/70 100 10/15/21 03:09 36.5 C 83 16 104/68 100 Laboratory Results Short CBC 10/15/21 Range/Units 02:05 WBC 15.44 H (4.8-10.8) K/uL Hgb 7.5 L (12.0-16.0) g/dL Hct 25.2 L (37-47) % Plt Count 205 (130-400) K/uL BMP 10/15/21 02:05 Sodium 135 L Potassium 3.9 Chloride 98 Carbon Dioxide 34 H BUN 9 Creatinine 0.37 L Glucose 116 H Calcium 8.2 L
[2021-10-15] MEDS: PIPERACILLIN/TAZOBACTAM 4.5 GM in DEXTROSE 5% 100 ML IV SCH ×2 (16:45→23:37)
[2021-10-15 18:03] LABS: Partial Thromboplastin Ratio 1.4; Partial Thromboplastin Time 35.9 Seconds (21.0-31.0)
[2021-10-15] MEDS ORDERED: HEPARIN IV BOLUS 3,000 UNITS in SYRINGE 0 ML IV ONE (18:30)
[2021-10-15] MEDS: MIRTAZAPINE TAB 15 MG TAB PO SCH (20:27)
[2021-10-16 00:52] LABS: Partial Thromboplastin Ratio 0.9; Partial Thromboplastin Time 23.1 Seconds (21.0-31.0)
[2021-10-16] MEDS: SODIUM CHLORIDE 0.65% NA SOLN 45 ML (OCEAN) SCH ×12 (01:31→23:47)
[2021-10-16] MEDS ORDERED: HEPARIN SOD (PORCINE) 1000 UNIT/ML IV ONE (02:15)
[2021-10-16] MEDS: HEPARIN SODIUM/DEXTROSE 25,000 UNITS/500 ML BAG IV SCH ×3 (05:25→10:56)
[2021-10-16] MEDS: DOXYCYCLINE HYCLATE 100 MG in DEXTROSE 5% 100 ML IV SCH ×2 (05:25→17:07)
[2021-10-16] MEDS: POTASSIUM CHLORIDE CRTAB 20 MEQ TABCR PO SCH ×2 (05:30→14:26)
[2021-10-16] MEDS: BUPRENORPHINE/NALOXONE 8/2 MG TAB SL SCH (07:58)
[2021-10-16] MEDS: PIPERACILLIN/TAZOBACTAM 4.5 GM in DEXTROSE 5% 100 ML IV SCH ×3 (07:59→23:46)
[2021-10-16] MEDS: DICLOFENAC SOD 1% GEL 100 GM TUBE EXT SCH ×2 (08:00→19:59)
[2021-10-16] MEDS: FUROSEMIDE INJ 20 MG/2 ML VIAL IV SCH (08:00)
[2021-10-16] MEDS: LIDOCAINE 5% 1 PATCH TD SCH (08:00)
[2021-10-16 08:51] LABS: Hematocrit (blood only) 29.2 % (37-47); Hemoglobin 8.7 g/dL (12.0-16.0); Mean Corpuscular Hemoglobin 25.3 pg (25-34); Mean Corpuscular Hgb Conc 29.8 g/dL (32-36); Mean Corpuscular Volume 84.9 fL (80-100); Mean Platelet Volume 10.3 fL (7.4-10.4); Platelet Count 262 K/uL (130-400); RDW Coefficient of Variation 21.6 % (11.5-14.5); RDW Standard Deviation 67.3 fL (36.4-46.3); Red Blood Count 3.44 M/uL (4.2-5.4); White Blood Count 11.96 K/uL (4.8-10.8)
[2021-10-16 09:02] LABS: Partial Thromboplastin Ratio 1.7; Partial Thromboplastin Time 44.7 Seconds (21.0-31.0)
[2021-10-16 09:16] LABS: BUN Creatinine Ratio 22.2 (10-20); Calcium 8.7 mg/dl (8.5-10.1); Creatinine Clr Calc Pharmacy 187.9 ml/min; Est GFR (African American) 143.2 ml/min; Est GFR (Non-African American) 123.6 ml/min
--- NOTE | 2021-10-16 10:26 | Cardiology Progress Note ---
Date of Service October 16, 2021 Assessment & Plan (1) Infective endocarditis of tricuspid valve: (2) Osteomyelitis of lumbar spine: (3) MSSA bacteremia: (4) Gram-negative bacteremia: (5) Pulmonary embolism: (6) Pneumonia: (7) Pancytopenia: (8) Hypokalemia: (9) Hyponatremia: Plan: 40-year-old female with history of tricuspid valve endocarditis, complicated by acute L4-L5 discitis , 5 cm epidural abscess and spinal osteomyelitis. TTecho performed this admission revealed bulky TV vegetations (non mobile) with mild to moderate tricuspid regurgitation, Moderate right ventricular enlargement, and estimated PA systolic pressure elevated at 59 mm Hg. The mitral and aortic valves were functioning normally without regurgitation. She has had a progressive increase in oxygen requirement, development of bilateral infiltrates on chest x-ray, CT angiogram consistent with pneumonia as well as right-sided pulmonary emboli. Perhaps venous thromboembolic event, or septic emboli from the tricuspid valve. Lower extremity venous duplex negative. With caution, patient has received 1 unit of packed red blood cells on 10/11/2021 to support her anemia. Hbg improved from 7.5 to 8.7 today. Furosemide/potassium has been given to keep I+O's even. Her sodium levels are lower today at 131. She already received morning lasix. Will hold dose in AM, 10/17 until labs reviewed Blood cultures obtained 10/11/2021, have revealed sserratia marcescens. Antibiotic coverage has been broadened from Ancef to cefepime plus IV doxycycline (10/12/21). As previously noted, I am very concerned with regards to her overall degree of illness and multiple issues. She is NOT a surgical candidate for spine surgery or cardiac surgery at present due to pancytopenia , respiratory status, and even if she was to have one problem addressed surgically, she would still be at high risk of seeding from the other, and at present I do not think she would survive operative intervention. Best option therefore is ongoing supportive care with IV antibiotics, supplemental oxygen, and anticoagulation. Anticoagulation also NOT ideal in the setting of endocarditis, and generally contraindicated, however, given hypoxia and PE on CT appears to be clinically necessary and reasonable ast this is right sided endocarditis (rather than left sided) and new RV strain patter had been noted on ttecho this admission. She is currently awaiting a bed at tertiary care facility. Case discussed with Dr. Chavarria. Will follow. Admission and Anticipated Discharge Date Admission Date: October 08, 2021 Supervising Physician Co-Signing Physician Notes Patient was seen and examined evaluation as above. Patient without acute changes by her description however shrill murmur audible on auscultation. Murmur suggestive of left to right shunt or significant change in valvular structure. No changes hemodynamically Echocardiogram to be performed today Awaiting tertiary care transfer Addendum echocardiogram There is massive thickening and vegetation of the tricuspid valve with marked involvement of all leaflets and poor central coaptation. Severe tricuspid insufficiency is now present There is a small vegetation or mass on the aortic valve. Mild to moderate aortic regurgitation. Left ventricular systolic function is normal. Ejection Fraction = 60-65%. In comparison to prior study of 10/08/2021, tricuspid valve vegetation sizes have increased and valve is now widely incompetent with severe tricuspid insufficiency. New vegetation is now observed on aortic valve leaflet with mild to moderate aortic insufficiency Ventricular septal defect not excluded by this procedure Subjective Patient resting in bed comfortably. Remains on high flow oxygen. Reports SOB at rest and with minimal exertion. Reports she has "pain all over" including back, arms, hands and chest. Repeatedly falls asleep during conversation. Reports " my body just wore out". Review of Systems Review of Systems: Unobtainable due to cognitive status Physical Exam Constitutional: WD/WN, vitals as above + ill appearing Eyes: PERRL, conjunctivae normal, anicteric sclerae Respiratory: + labored breathing Auscultation: + crackles and + rhonchi Cardiovascular: Rate/Rhythm: + tachycardic Heart Sounds: + murmur (high pitched III/ systolic murmur throughout the precordium) Vessels: + JVD Extremities: + edema (1+ edema with b/l legs wrapped/bandaged) Gastrointestinal (Abdomen): normal bowel sounds, soft, nontender, no hepatosplenomegaly Neurologic: PERRL, EOMI, accommodation nl, no face palsy, no dysarthria Psychiatric: Orientation: alert and oriented x 3 Results & Data ([facility]) Vital Signs (Past 12 Hours) Vital Signs Temp Pulse Pulse Resp BP BP Pulse Ox 10/16/21 08:02 36.7 C 99 H 20 98/59 L 98 10/16/21 03:01 36.4 C L 105 H 16 107/65 99 10/15/21 23:59 101 H 10/15/21 22:59 37.2 C 102 H 18 116/68 99 Laboratory Results 10/16/21 10/16/21 10/16/21 Range/Units 08:01 08:01 08:01 WBC 11.96 H (4.8-10.8) K/uL RBC 3.44 L (4.2-5.4) M/uL Hgb 8.7 L (12.0-16.0) g/dL Hct 29.2 L (37-47) % MCV 84.9 (80-100) fL MCH 25.3 (25-34) pg MCHC 29.8 L (32-36) g/dL RDW Std Deviation 67.3 H (36.4-46.3) fL RDW Coeff of Benji 21.6 H (11.5-14.5) % Plt Count 262 (130-400) K/uL MPV 10.3 (7.4-10.4) fL APTT 44.7 H (21.0-31.0) Seconds PTT Ratio 1.7 Sodium 131 L (136-145) mmol/L Potassium 4.0 (3.5-5.1) mmol/L Chloride 95 L (98-107) mmol/L Carbon Dioxide 30 (21-32) mmol/L Anion Gap 6 (3-11) BUN 10 (6-23) mg/dl Creatinine 0.45 L (0.6-1.2) mg/dl Est Cr Clr Drug Dosing 187.9 ml/min Est GFR ( Amer) 143.2 ml/min Est GFR (Non-Af Amer) 123.6 ml/min BUN/Creatinine Ratio 22.2 H (10-20) Glucose 145 H (70-99(Fasting)) mg/dl Calcium 8.7 (8.5-10.1) mg/dl 10/16/21 10/15/21 10/15/21 Range/Units 00:28 17:40 10:33 WBC (4.8-10.8) K/uL RBC (4.2-5.4) M/uL Hgb (12.0-16.0) g/dL Hct (37-47) % MCV (80-100) fL MCH (25-34) pg MCHC (32-36) g/dL RDW Std Deviation (36.4-46.3) fL RDW Coeff of Benji (11.5-14.5) % Plt Count (130-400) K/uL MPV (7.4-10.4) fL APTT 23.1 35.9 H 33.0 H (21.0-31.0) Seconds PTT Ratio 0.9 1.4 1.3 Sodium (136-145) mmol/L Potassium (3.5-5.1) mmol/L Chloride (98-107) mmol/L Carbon Dioxide (21-32) mmol/L Anion Gap (3-11) BUN (6-23) mg/dl Creatinine (0.6-1.2) mg/dl Est Cr Clr Drug Dosing ml/min Est GFR ( Amer) ml/min Est GFR (Non-Af Amer) ml/min BUN/Creatinine Ratio (10-20) Glucose (70-99(Fasting)) mg/dl Calcium (8.5-10.1) mg/dl Diagnostic Findings Telemetry reviewed - NSR with HR's ranging 90-110. No arrhythmias Medications Administered Current Inpatient Medications Acetaminophen (Acetaminophen 325 Mg Tab) 650 mg PO Q4H PRN PRN Reason: Pain or Fever Stop: 11/07/21 05:13 Last Admin: 10/14/21 17:26 Dose: 650 mg Documented by: Albuterol (Albuterol 0.083% Nebu Soln 3 Ml Vial) 2.5 mg NEB Q6R PRN; Protocol PRN Reason: Shortness Of Breath Or Wheezing Stop: 11/10/21 08:45 Buprenorphine/Naloxone (Buprenorphine/Naloxone 8/2 Mg Tab) 2 tab SL DAILY BLAIR Stop: 11/09/21 08:59 Last Admin: 10/16/21 07:58 Dose: 2 tab Documented by: Clonidine HCl (Clonidine Hcl 0.1 Mg Tab) 0.1 mg PO Q8H PRN PRN Reason: agitation/withdrawal symptoms Stop: 11/08/21 09:53 Last Admin: 10/10/21 19:48 Dose: 0.1 mg Documented by: Diclofenac Sodium (Diclofenac Sod 1% Gel 100 Gm Tube) 2 gm EXT BID BLAIR Stop: 11/07/21 20:59 Last Admin: 10/16/21 08:00 Dose: 2 gm Documented by: Furosemide (Furosemide Inj 20 Mg/2 Ml Vial) 20 mg IV DAILY BLAIR Stop: 11/13/21 08:59 Last Admin: 10/16/21 08:00 Dose: 20 mg Documented by: Hydromorphone HCl (Hydromorphone Inj 0.5 Mg/0.5 Ml Syr) 0.5 mg IV Q8H PRN PRN Reason: Pain Stop: 10/22/21 15:02 Last Admin: 10/14/21 17:42 Dose: 0.5 mg Documented by: Heparin Sodium/Dextrose (Heparin Sodium/Dextrose) 25,000 units in 500 mls @ 58 mls/hr IV .Q8H38M [facility]; Protocol Stop: 11/10/21 15:59 Last Admin: 10/16/21 09:05 Dose: 2,900 units/hr, 58 mls/hr Documented by: Doxycycline Hyclate 100 mg/ (Dextrose) 110 mls @ 50 mls/hr IV Q12H [facility]; Protocol Stop: 10/18/21 17:44 Last Infusion: 10/16/21 08:44 Dose: Infused Documented by: Piperacillin Sod/Tazobactam (Sod 4.5 gm/ Dextrose) 120 mls @ 30 mls/hr IV Q8H [facility]; Protocol Stop: 10/29/21 00:00 Last Admin: 10/16/21 07:59 Dose: 30 mls/hr Documented by: Lidocaine (Lidocaine 5% 1 Patch) 2 patch TD QAM [facility] Stop: 11/08/21 09:59 Last Admin: 10/16/21 08:00 Dose: 2 patch Documented by: Mirtazapine (Mirtazapine Tab 15 Mg Tab) 15 mg PO HS [facility] Stop: 11/08/21 20:59 Last Admin: 10/15/21 20:27 Dose: 15 mg Documented by: Miscellaneous (Remove Lidoderm Patch) 1 ea N/A DAILY@2100 [facility] Stop: 11/08/21 20:59 Last Admin: 10/15/21 20:33 Dose: 1 ea Documented by: Miscellaneous Information (Piperacill/Tazobac Consult Active) 1 ea N/A UD PRN PRN Reason: Consult Stop: 11/13/21 18:58 Nitroglycerin (Nitroglycerin Sl 0.4 Mg/Tab Tab) 0.4 mg SL UD PRN PRN Reason: Chest Pain Stop: 11/07/21 05:13 Ondansetron HCl (Ondansetron Inj 2 Mg/Ml 2 Ml Vial) 4 mg IV Q6H PRN PRN Reason: Nausea Stop: 11/07/21 05:13 Last Admin: 10/09/21 22:27 Dose: 4 mg Documented by: Oxymetazoline HCl (Oxymetazoline 0.05% 30 Ml Btl) 1 sprays NA Q6H PRN PRN Reason: Epistaxis Stop: 11/10/21 15:43 Last Admin: 10/11/21 16:48 Dose: 1 sprays Documented by: Polyethylene Glycol (Polyethylene (Miralax) 17 Gm Pack) 17 gm PO DAILY PRN PRN Reason: Constipation Stop: 11/07/21 05:13 Potassium Chloride (Potassium Chloride Crtab 20 Meq Tabcr) 20 meq PO [id number] BLAIR Stop: 11/10/21 13:59 Last Admin: 10/16/21 05:30 Dose: 20 meq Documented by: Sodium Chloride (Sodium Chloride 0.65% Na Soln 45 Ml ([place])) 1 sprays NA Q2H BLAIR Stop: 11/10/21 15:44 Last Admin: 10/16/21 07:58 Dose: 1 sprays Documented by:
[2021-10-16] MEDS: ENOXAPARIN 80 MG/0.8 ML SYR SQ SCH ×2 (12:33→23:45)
[2021-10-16 12:38] LABS: Fibrinogen 497 mg/dl (184-400)
[2021-10-16] MEDS: HYDROmorphone INJ 0.5 MG/0.5 ML SYR IV PRN ×2 (14:24→23:46)
--- NOTE | 2021-10-16 15:37 | Hospitalist Progress Note ---
Date of Service October 16, 2021 Assessment & Plan (1) Infective endocarditis of tricuspid valve: Plan: Infective endocarditis of tricuspid valve MSSA bacteremia As per Prior hospitalist Initial diagnosis of MSSA bacteremia on 08/30/2021 with complications of pneum onia required chest tube placement She was transferred to [place] from [facility] and later on RODRIGUEZ showed large complex multilobar vegetations and tricuspid valve. She was put on intravenous cefazolin (to be taken until 10/19/2021) but signed out AMA and was sent on oral Keflex and rifampicin She showed up in [facility] and signed out AMA to come to [facility] on the day of admission with significant lab abnormalities as mentioned below Started with intravenous cefazolin and vancomycin Blood cultures grew MSSA and vancomycin was stopped Blood cultures growing Serratia Appreciate ID input and recommendation Appreciated cardiology input and recommendation Continue cefazolin>> cefepime, doxycycline>> Zosyn, Doxy Repeat blood cultures from 10/12/21 showed no growth to date 10/14/21: No growth to date Waiting for transfer to tertiary care facility Continue current management leukocytosis better today Repeat echo today showed increased tricuspid valve vegetation causing severe tricuspid insufficiency, new vegetation noted on aortic valve with mild to moderate aortic insufficiency Updated [facility] center about new findings and requested to expedite transfer process. Acute respiratory failure with hypoxia Multifocal pneumonia Acute PE Suspected Septic pulmonary embolism COVID screen negative Influenza, RSV screen negative -CTA:Positive CTA for pulmonary emboli within the right main and right lower lobe pulmonary arteries. No evidence for right heart strain. Extensive groundglass opacities are present throughout both lungs characteristic of a viral type pneumonitis and Covid 19 pneumonia. More confluent alveolar opacities are also present bilaterally with no air bronchograms. Small bilateral pleural effusions. -Continue IV heparin>>>>Transitioned to therapeutic dose of Lovenox -Blood cultures initially growing MSSA, Serratia Continue cefepime and doxycycline Nebs as needed Appreciate pulmonology input Waiting for tertiary care transfer Continue supplemental oxygen as needed Currently on 15 L supplemental oxygen Discitis/osteomyelitis with 5 cm epidural abscess at L4-5 level with encroaching upon the thecal sac MRI of the lumbar spine showed:Positive MRI demonstrating acute discitis at L4-5 with osteomyelitis of the adjacent L4 and L5 vertebral bodies. Additionally, there is an epidural abscess posterior to the L4 and L5 vertebral bodies encroaching upon the thecal sac as described above. Appreciate Ortho input Needs transfer to a tertiary care center for management of the epidural abscess Patient agreed with transfer as per prior hospitalist Prior hospitalist discussed with on-call spine surgeon Dr. Valle and discussed wi hospitalist Dr. Boudreaux Waiting to be transferred to [place] (2) Pancytopenia: Plan: H/O significant thrombocytopenia since August and noted to be severely thrombocytopenic with pancytopenia during this admission Peripheral blood film did not support any specific diagnosis Suspected to be secondary to severe infection and may be complicated by having hepatitis C and recent use of rifampicin White blood cell count and platelet have been improving but hemoglobin remains low likely secondary to ongoing infection Iron studies are pending and B12 folate remains unremarkable, normal reticulocyte count and normal LDH Discussed with strategic debriefing officer-suggested to have abdominal CAT scan to rule out any splenomegaly and abscess CT of the abdomen did not show any intra-abdominal abscess but it showed hepatosplenomegaly Monitor CBC S/P 2 Unit PRBCs HB 8.7 today Thrombocytopenia resolved (3) Chronic pain syndrome: Plan: Has chronic pain and has been on Suboxone Complains to pain at the back, bilateral in the hands with hand swelling and bilaterally in the legs Appreciate Ortho input and recommendation for hand swelling and pain Appreciate pain therapy input and recommendation Suboxone doses have been increased (4) Opioid use disorder: Plan: History of intravenous opioid abuse Patient admits to taking--last time about in August (5) Upper extremity pain, diffuse: Plan: Due to swelling of both the hands Elevate UE Lasix PRN Bilateral lower extremity wound Wound care has been consulted Continue Wound care Continue above Antibiotics (6) Disorder of electrolytes: Plan: Severe hypokalemia Replace and monitor (7) Hepatitis C carrier: Plan: History of hepatitis C carrier Liver function is abnormal INR and PTT are high Alkaline phos is borderline high Hepatitis C viral load has been pending in [facility] DVT prophylaxis On therapeutic Lovenox CODE STATUS Full Code Disposition [facility] when bed available Admission and Anticipated Discharge Date Admission Date: October 08, 2021 Subjective Patient is seen and examined at bedside Discussed with cardiology and hematology today Also discussed with [facility] center regarding new echo findings Patient subjectively feels no significant change from yesterday She denies any bleeding issues IV heparin transition to Lovenox Patient denies any significant cough, dyspnea currently Hemoglobin stable Currently requiring 15 L supplemental oxygen Review of Systems Review of Systems: All systems reviewed & are unremarkable except as noted in Subjective Physical Exam Physical Exam: Physical Exam: Vitals signs as noted above General Appearance:Ill appearing, no apparent distress Head: normocephalic, Atraumatic Eyes: normal inspection, EOMI Neck: supple, Trachea midline Respiratory/Chest: Decreased breath sounds, basal rales, No accessory muscle use Cardiovascular: S1, S2, tachycardic, +murmur Abdomen/GI:Soft, Non tender, Bowel sounds present Extremities/Musculoskeletal:normal inspection, B/L LE edema, + wounds in dressing Neurologic/Psych:AAOX3, grossly no focal neurological deficits Skin: normal color, warm Results & Data Results & Data ([facility]) Vital Signs (Past 12 Hours) Vital Signs Temp Pulse Resp BP Pulse Ox 10/16/21 11:33 36.7 C 93 H 19 103/63 99 10/16/21 08:02 36.7 C 99 H 20 98/59 L 98 Laboratory Results Short CBC 10/16/21 Range/Units 08:01 WBC 11.96 H (4.8-10.8) K/uL Hgb 8.7 L (12.0-16.0) g/dL Hct 29.2 L (37-47) % Plt Count 262 (130-400) K/uL BMP 10/16/21 08:01 Sodium 131 L Potassium 4.0 Chloride 95 L Carbon Dioxide 30 BUN 10 Creatinine 0.45 L Glucose 145 H Calcium 8.7
--- NOTE | 2021-10-16 15:37 | Consultation Report ---
DATE OF SERVICE: 10/16/2021 REASON FOR CONSULT: Possible antithrombin deficiency. HISTORY OF PRESENT ILLNESS: Ms. 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 On admission, patient had reported signing out AMA from [facility] on 09/18/2021 after being admitted for endocarditis due to IV drug abuse. On admission, she was started on broad- spectrum antibiotics for infective endocarditis. Cardiology was consulted during admission, she was noted to have increasing oxygen requirements for which she had a CT chest angiogram performed on 10/11/2021, which revealed pulmonary emboli within the right main and right lower lobe pulmonary arteries with no evidence of right heart strain as well as extensive ground-glass opacities present throughout both lungs characteristic of viral type pneumonitis and COVID-19 pneumonia. Lower extremity Doppler obtained on 10/11/2021 revealed no evidence of lower extremity DVT. The patient was subsequently started on therapeutic heparin, which she remains on. Hematology was consulted due to concern for heparin resistance as the patient has required increasing heparin dosing without achieving therapeutic PTT. During my evaluation of patient, she complains of generalized body pain and mild shortness of breath. Otherwise, denies any other symptoms. PAST MEDICAL HISTORY: 1. Hepatitis C. 2. Endocarditis of the tricuspid valve. 3. History of CVA. 4. Chronic pain. PAST SURGICAL HISTORY: . MEDICATIONS PRIOR TO ADMISSION: Rifampin. ALLERGIES: TYLENOL AND METHADONE. SOCIAL HISTORY: Smokes half a pack per day of cigarettes. Has a history of IV drug abuse. Denies alcohol use. FAMILY HISTORY: Positive for history of venous thromboembolism in her aunt and grandmother. REVIEW OF SYSTEMS: CONSTITUTIONAL: Denies weight loss, fevers or night sweats. CARDIOVASCULAR: Endorses shortness of breath. Denies chest pain, palpitations, or diaphoresis. RESPIRATORY: Endorses shortness of breath. Denies cough or hemoptysis. GASTROINTESTINAL: Endorses diarrhea. Denies nausea, vomiting, hematemesis or hematochezia. GENITOURINARY: Denies urinary frequency, hematuria or dysuria. NEUROLOGICAL: Positive for generalized weakness. No headaches or dizziness. LYMPHATICS/HEMATOLOGIC: Denies abnormal bruising or bleeding or new adenopathy. MUSCULOSKELETAL: Endorses generalized body pain. PHYSICAL EXAMINATION: EYES: Eyes were without conjunctival erythema or icterus. NECK: Negative for masses or palpable lymphadenopathy. LUNGS: Decreased breath sounds bilaterally. CARDIOVASCULAR: S1 and S2 heard with III/ systolic ejection murmur. GASTROINTESTINAL: Palpable hepatosplenomegaly. Abdomen soft with normal bowel sounds. LYMPHATIC SYSTEM: No palpable peripheral lymphadenopathy. EXTREMITIES: Bilateral lower extremity wound dressing clean and dry. 2+ pitting edema bilaterally. LABORATORY DATA: Significant for white cell count of 11.96, hemoglobin of 8.7 with hematocrit of 29.2, platelet count of 262,000, and MCV was 84.9. PTT 44.7. Chemistries significant for mildly low sodium of 131, chloride of 95 with creatinine of 0.45. IMAGING: CT abdomen and pelvis on 10/09/2021 revealed: 1. Disk space narrowing at L5-S1 with erosion of the inferior endplate of L5 and superior endplate of S1, highly suggestive of diskitis/osteomyelitis with associated paravertebral infiltration. 2. Asymmetric soft tissue thickening along the posterior aspect of the right ischial tuberosity, which extends to the underlying bone. 3. Multifocal airspace opacities within the lower lungs. Findings represent an infectious process and could represent a viral pneumonia or sequelae of septic emboli. 4. Small bilateral pleural effusions. 5. Hepatosplenomegaly. 6. Suboptimal evaluation given motion artifact and lack of IV contrast. CTA on 10/11/2021, impression: 1. Positive CTA for pulmonary emboli within the right main and right lower lobe pulmonary arteries. 2. No evidence of right heart strain. 3. Extensive ground-glass opacities are present throughout the lungs characteristic of viral type pneumonitis and COVID-19 pneumonia. 4. Small bilateral pleural effusions. Venous Doppler study on 10/11/2021 revealed no DVT within the right or left lower extremity. IMPRESSION: 1. Possible heparin resistance. 2. Infective endocarditis. 3. Anemia. 4. Hepatosplenomegaly. 5. Provoked Pulmonary embolism A 40-year-old female admitted and currently being treated for infective endocarditis due to IV drug abuse. Imaging obtained on admission for increasing oxygen requirements revealed pulmonary emboli for which she was started on heparin. Hematology was consulted for possible heparin resistance. Based on discussion with pharmacist, patient has received more than 35,000 units of heparin over the past 24 hours. This is excluding her initial bolus doses. This is definitely concerning for heparin resistance. However, given the patient's history of liver disease, it is possible that she has acquired antithrombin III deficiency from liver cirrhosis or liver disease. Another possibility is that she could have disseminated intravascular coagulation, for which I recommend obtaining fibrinogen level. At this time, given concern for bleeding in the setting of infective endocarditis, one option would be to place her on prophylactic dosing of Lovenox or a direct oral anticoagulant. If concern for bleeding is low, therapeutic low-molecular weight heparin or therapeutic dosing of direct oral anticoagulant. Would not recommend testing for antithrombin deficiency at this time as I would expect it to be falsely low given recent exposure to heparin as well as acute thrombosis. She would, however, benefit from thrombophilia workup upon discharge from hospital, at which time we can check antithrombin III deficiency. PLAN: 1. Would recommend discontinuing heparin and switching to either prophylactic/therapeutic Lovenox or a DOAC. 2. Recommend outpatient workup for antithrombin deficiency. Thank you for this consult. Hematology will sign off at this time to see the patient in clinic upon discharge from hospital. Please feel free to call if you have any further questions. Job ID: [id number] [facility]ick
--- NOTE | 2021-10-16 15:54 | Discharge Summary ---
Date of Service October 16, 2021 Admission HPI Per Admitting Provider CHIEF COMPLAINT: Endocarditis , complaining of generalized pain. 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 The patient was recently in [facility] from 09/12/2021 to 09/20/2021. The patient has COVID pneumonia about couple of months ago. She was presented to [facility] on 08/30/2021 with hemoptysis and shortness of breath and found to have severe sepsis and acute hypoxic respiratory failure requiring supplemental oxygen, found to have pneumonia, she was started on vancomycin and cefepime, which was eventually changed to cefazolin as she was found to have MSSA bacteremia. She developed a tension pneumothorax requiring left chest tube placement on 09/03/2021-09/08/2021, right Chest tube was placed for loculated right effusion (empyema)on 09/08/2010, and she was transferred to [place]. ID was consulted and RODRIGUEZ was done, as patinet had MSSA bacteremia and septic emboli on CT scan. RODRIGUEZ showed a large complex multilobar regurgitation tricuspid wall, CT surgery consulted . Underwent repeat chest tube placed by Thoracic Surgery and right chest tube was pulled off. At that time, blood cultures had no growth. ID recommended IV cefazolin until 10/19/2021, but the patient left AMA. As the patient left AMA, she was discharged on Keflex and rifampin and she presented to [place] [facility] yesterday because of her back pain and leg pain and chronic pain. The labs done yesterday in [place] showed significant thrombocytopenia, platelets of only 12. Seems she has chronic anemia. She complained of shortness of breath and chest pain, severe body aches, subjective fevers and chills, but as she was not getting pain medications she signed out AMA and daughter brought her in [facility] and left patient here and daughter left. The patient lives with her daughter. The patient complains of chronic pain and asking for pain medications. She is okay to take her home pain medication of Suboxone. She says she has some palpitations, shortness of breath. Denies any headache. No blurred visions, no earache, no runny nose, no sore throat. Appetite is not that great. Currently, no chest pain, no nausea, no abdominal pain, normal bowel and bladder movements. Somewhat constipated. She has chronic wound in lower extremity, dressing is placed in [facility]. As per the [facility], the [place] blood cultures again came back positive for gram-positive cocci in clusters.ER in [place] contacted [place] ID probably before blood cultures and recommended to continue the Ancef and give a dose of vancomycin. Currently hemodynamically stable.Patinet also complaining of right wrist pain. Admission Exam Per Admitting Provider PHYSICAL EXAMINATION: GENERAL: The patient is alert and oriented, not complaining of pain. VITAL SIGNS: Temperature 36.8, pulse 104, respiratory rate 18, blood pressure 160/85, oxygen 93% on room air. HEENT: Pupils equal, round and reactive to light. Oral mucosa dry. NECK: No JVD, no neck masses. CARDIOVASCULAR: S1 and S2 heard, regular rate and rhythm. No murmur, no gallop. RESPIRATORY SYSTEM: Normal AP diameter. No accessory muscle use. No wheezing, no crackles. ABDOMEN: Soft, bowel sounds present, nontender, nondistended. CENTRAL NERVOUS SYSTEM: Cranial nerves II-XII grossly intact, nonfocal. EXTREMITIES: Lower extremity wounds are placed in dressing, has erythematous changes in the bilateral upper arms. Principal Diagnosis Infective endocarditis of tricuspid valve, Aortic Valve MSSA bacteremia Acute respiratory failure with hypoxia Multifocal pneumonia Discitis/osteomyelitis with 5 cm epidural abscess at L4-5 level Pancytopenia Chronic pain syndrome History of intravenous opioid abuse Hypokalemia Hepatitis C carrier Discharge Data Allergies Allergy/AdvReac Type Severity Reaction Status Date / Time acetaminophen [From Tylenol] AdvReac Intermediate Vomiting Verified 10/08/21 00:08 methadone AdvReac Intermediate Vomiting Verified 10/08/21 00:08 Consultations 10/08/21 02:02 ED Decision to Admit Stat 10/08/21 05:14 Consult Infectious Diseases Routine 10/08/21 08:00 Consult Cardiology Routine Consult Orthopedic Surgery Routine 10/08/21 15:08 Consult Pain Management Routine 10/09/21 13:28 Consult Orthopedic Surgery Routine 10/11/21 10:26 Consult Pulmonology Routine 10/16/21 08:42 Consult Hematology Routine Ordered Studies 10/08/21 15:10 US venous doppler LE BI Urgent 10/09/21 10:33 CT abd pelvis wo con Routine 10/09/21 13:33 MR lumbar spine wo/w con Urgent 10/11/21 10:37 CT angio chest PE protocol Urgent 10/11/21 16:03 US venous doppler LE BI Routine Hospital Course (1) Infective endocarditis of tricuspid valve: Infective endocarditis of tricuspid valve MSSA bacteremia As per Prior hospitalist Initial diagnosis of MSSA bacteremia on 08/30/2021 with complications of pneumonia required chest tube placement She was transferred to [place] from [facility] and later on RODRIGUEZ showed large complex multilobar vegetations and tricuspid valve. She was put on intravenous cefazolin (to be taken until 10/19/2021) but signed out AMA and was sent on oral Keflex and rifampicin She showed up in [facility] and signed out AMA to come to [facility] on the day of admission with significant lab abnormalities as mentioned below Started with intravenous cefazolin and vancomycin Blood cultures grew MSSA and vancomycin was stopped Blood cultures growing Serratia Appreciate ID input and recommendation Appreciated cardiology input and recommendation Continue cefazolin>> cefepime, doxycycline>> Zosyn, Doxy Repeat blood cultures from 10/12/21 showed no growth to date 10/14/21: No growth to date Waiting for transfer to tertiary care facility Continue current management leukocytosis better today Repeat echo today showed increased tricuspid valve vegetation causing severe tricuspid insufficiency, new vegetation noted on aortic valve with mild to moderate aortic insufficiency Updated [facility] center about new findings and requested to expedite transfer process. Acute respiratory failure with hypoxia Multifocal pneumonia Acute PE Suspected Septic pulmonary embolism COVID screen negative Influenza, RSV screen negative -CTA:Positive CTA for pulmonary emboli within the right main and right lower lobe pulmonary arteries. No evidence for right heart strain. Extensive groundglass opacities are present throughout both lungs characteristic of a viral type pneumonitis and Covid 19 pneumonia. More confluent alveolar opacities are also present bilaterally with no air bronchograms. Small bilateral pleural effusions. -Continue IV heparin>>>>Transitioned to therapeutic dose of Lovenox -Blood cultures initially growing MSSA, Serratia Continue cefepime and doxycycline Nebs as needed Appreciate pulmonology input Waiting for tertiary care transfer Continue supplemental oxygen as needed Currently on 15 L supplemental oxygen Discitis/osteomyelitis with 5 cm epidural abscess at L4-5 level with encroaching upon the thecal sac MRI of the lumbar spine showed:Positive MRI demonstrating acute discitis at L4-5 with osteomyelitis of the adjacent L4 and L5 vertebral bodies. Additionally, there is an epidural abscess posterior to the L4 and L5 vertebral bodies encroaching upon the thecal sac as described above. Appreciate Ortho input Needs transfer to a tertiary care center for management of the epidural abscess Patient agreed with transfer as per prior hospitalist Prior hospitalist discussed with on-call spine surgeon Dr. Valle and discussed with hospitalist Dr. Boudreaux Waiting to be transferred to [place] (2) Pancytopenia: H/O significant thrombocytopenia since August and noted to be severely thrombocytopenic with pancytopenia during this admission Peripheral blood film did not support any specific diagnosis Suspected to be secondary to severe infection and may be complicated by having hepatitis C and recent use of rifampicin White blood cell count and platelet have been improving but hemoglobin remains low likely secondary to ongoing infection Iron studies are pending and B12 folate remains unremarkable, normal reticulocyte count and normal LDH Discussed with bid clerk-suggested to have abdominal CAT scan to rule out any splenomegaly and abscess CT of the abdomen did not show any intra-abdominal abscess but it showed hepatosplenomegaly Monitor CBC S/P 2 Unit PRBCs HB 8.7 today Thrombocytopenia resolved (3) Chronic pain syndrome: Has chronic pain and has been on Suboxone Complains to pain at the back, bilateral in the hands with hand swelling and bilaterally in the legs Appreciate Ortho input and recommendation for hand swelling and pain Appreciate pain therapy input and recommendation Suboxone doses have been increased (4) Opioid use disorder: History of intravenous opioid abuse Patient admits to taking--last time about in August (5) Upper extremity pain, diffuse: Due to swelling of both the hands Elevate UE Lasix PRN Bilateral lower extremity wound Wound care has been consulted Continue Wound care Continue above Antibiotics (6) Disorder of electrolytes: Severe hypokalemia Replace and monitor (7) Hepatitis C carrier: History of hepatitis C carrier Liver function is abnormal INR and PTT are high Alkaline phos is borderline high Hepatitis C viral load has been pending in [facility] DVT prophylaxis On therapeutic Lovenox CODE STATUS Full Code Disposition Frandy Brewer when bed available Total Time Total Time Spent Total Time Spent (In Minutes): 55 minutes Discharge Plan Discharge Items Patient Disposition: Transfer Acute Care Hospital Reason For Visit: ARM PAIN Discharge Diagnosis: Infective endocarditis of tricuspid valve, Aortic Valve MSSA bacteremia Acute respiratory failure with hypoxia Multifocal pneumonia Discitis/osteomyelitis with 5 cm epidural abscess at L4-5 level Pancytopenia Chronic pain syndrome History of intravenous opioid abuse Hypokalemia Hepatitis C carrier Activity: Per Instructions section Non-emergency contact: Primary Care Provider, Specialist, Teaching Manager and Rebar Bender Call non-emergency contact if: you have any medication questions, your symptoms worsen, your pain is concerning for you and you have a fever Follow-up/Referrals: PCP,NO [Primary Care Provider] - Diet: Heart Healthy Addtl Attending Provider Instructions: Follow up with spine surgeon Dr. Valle and Dr. Boudreaux and Cardiology at [facility] for further management Current Inpatient Medications Acetaminophen (Acetaminophen 325 Mg Tab) 650 mg PO Q4H PRN PRN Reason: Pain or Fever Stop: 11/07/21 05:13 Last Admin: 10/14/21 17:26 Dose: 650 mg Documented by: Albuterol (Albuterol 0.083% Nebu Soln 3 Ml Vial) 2.5 mg NEB Q6R PRN; Protocol PRN Reason: Shortness Of Breath Or Wheezing Stop: 11/10/21 08:45 Buprenorphine/Naloxone (Buprenorphine/Naloxone 8/2 Mg Tab) 2 tab SL DAILY [facility] Stop: 11/09/21 08:59 Last Admin: 10/16/21 07:58 Dose: 2 tab Documented by: Clonidine HCl (Clonidine Hcl 0.1 Mg Tab) 0.1 mg PO Q8H PRN PRN Reason: agitation/withdrawal symptoms Stop: 11/08/21 09:53 Last Admin: 10/10/21 19:48 Dose: 0.1 mg Documented by: Diclofenac Sodium (Diclofenac Sod 1% Gel 100 Gm Tube) 2 gm EXT BID BLAIR Stop: 11/07/21 20:59 Last Admin: 10/16/21 08:00 Dose: 2 gm Documented by: Enoxaparin Sodium (Enoxaparin 80 Mg/0.8 Ml Syr) 80 mg SQ Q12H BLAIR Stop: 11/15/21 11:59 Last Admin: 10/16/21 12:33 Dose: 80 mg Documented by: Furosemide (Furosemide Inj 20 Mg/2 Ml Vial) 20 mg IV DAILY BLAIR Stop: 11/13/21 08:59 Last Admin: 10/16/21 08:00 Dose: 20 mg Documented by: Hydromorphone HCl (Hydromorphone Inj 0.5 Mg/0.5 Ml Syr) 0.5 mg IV Q8H PRN PRN Reason: Pain Stop: 10/22/21 15:02 Last Admin: 10/16/21 14:24 Dose: 0.5 mg Documented by: Doxycycline Hyclate 100 mg/ (Dextrose) 110 mls @ 50 mls/hr IV Q12H [facility]; Protocol Stop: 10/18/21 17:44 Last Infusion: 10/16/21 08:44 Dose: Infused Documented by: Piperacillin Sod/Tazobactam (Sod 4.5 gm/ Dextrose) 120 mls @ 30 mls/hr IV Q8H [facility]; Protocol Stop: 10/29/21 00:00 Last Infusion: 10/16/21 12:34 Dose: Infused Documented by: Lidocaine (Lidocaine 5% 1 Patch) 2 patch TD QAM [facility] Stop: 11/08/21 09:59 Last Admin: 10/16/21 08:00 Dose: 2 patch Documented by: Mirtazapine (Mirtazapine Tab 15 Mg Tab) 15 mg PO HS [facility] Stop: 11/08/21 20:59 Last Admin: 10/15/21 20:27 Dose: 15 mg Documented by: Miscellaneous (Remove Lidoderm Patch) 1 ea N/A DAILY@2100 [facility] Stop: 11/08/21 20:59 Last Admin: 10/15/21 20:33 Dose: 1 ea Documented by: Miscellaneous Information (Piperacill/Tazobac Consult Active) 1 ea N/A UD PRN PRN Reason: Consult Stop: 11/13/21 18:58 Nitroglycerin (Nitroglycerin Sl 0.4 Mg/Tab Tab) 0.4 mg SL UD PRN PRN Reason: Chest Pain Stop: 11/07/21 05:13 Ondansetron HCl (Ondansetron Inj 2 Mg/Ml 2 Ml Vial) 4 mg IV Q6H PRN PRN Reason: Nausea Stop: 11/07/21 05:13 Last Admin: 10/09/21 22:27 Dose: 4 mg Documented by: Oxymetazoline HCl (Oxymetazoline 0.05% 30 Ml Btl) 1 sprays NA Q6H PRN PRN Reason: Epistaxis Stop: 11/10/21 15:43 Last Admin: 10/11/21 16:48 Dose: 1 sprays Documented by: Polyethylene Glycol (Polyethylene (Miralax) 17 Gm Pack) 17 gm PO DAILY PRN PRN Reason: Constipation Stop: 11/07/21 05:13 Potassium Chloride (Potassium Chloride Crtab 20 Meq Tabcr) 20 meq PO [id number] BLAIR Stop: 11/10/21 13:59 Last Admin: 10/16/21 14:26 Dose: 20 meq Documented by: Sodium Chloride (Sodium Chloride 0.65% Na Soln 45 Ml ([place])) 1 sprays NA Q2H BLAIR Stop: 11/10/21 15:44 Last Admin: 10/16/21 14:26 Dose: 1 sprays Documented by: Pending Studies at Discharge: Yes Studies:: Repeat Blood cultures Stand-Alone Forms: [facility] Skilled Items Patient informed of condition?: Yes DNR: No Discharge Level of Care: Other Communicable Disease: No Discharge Prognosis: Stable Lines: Peripheral IV Urinary Catheter: No Medications and DC Order Prescriptions: Continued buprenorphine-naloxone [Suboxone] 8-2 mg Tablet, Sublingual 1.5 tab SUBLINGUAL DAILY RF: 0 rifampin 300 mg capsule 600 mg PO Q12H RF: 0 Discharge Orders: Discharge Order (Routine); Ordered 10/16/21 Ordered By: Barrera Howard Admission Data Admit Date/Time: 10/08/21 04:39 Attending Provider: Barrera Howard Admit Provider: Alonso Chiang Primary Care Provider: PCP,NO Other Providers: Alonso Chiang ; Jhonny Sanz ; Luly Duncan ; Randy Page I. ; Landon Jarrett II ; Alida Briceño ; Lacho Westfall ; Abdifatah Santiago ; Filipe Hough ; Varghese Lin ; Paulo Chavarria ; Walter Tripp ; Timbo Gaytan ; Lacho Steiner ; Briseida Gonsalves ; Ladi Champagne ; Rae Lee ; Drake Bianchi ; Willie Toledo ; Giana Elam I. ; Wu Espinoza ; Milagro Kathleen ; Bismark Leblanc ; Delores Flores ; Alfredo Cardoza ; Alfredo Moore ; Varghese Meng V.
[2021-10-16] MEDS: MIRTAZAPINE TAB 15 MG TAB PO SCH (19:54)
== END 2021-10-17 02:19 | disposition short-term general hospital (02) | DRG 288 ==
LOC: ED 23:38 → SUATTDRO 10-08 04:39 → EDINP 10-08 04:39 → 2S 10-08 06:42
DX: Z86.73 Personal history of transient ischemic attack (TIA), and cerebral infarction without residual deficits; D69.6 Thrombocytopenia, unspecified; S81.801A Unspecified open wound, right lower leg, initial encounter; Z91.14 Patient's other noncompliance with medication regimen; J96.01 Acute respiratory failure with hypoxia; M79.642 Pain in left hand; G89.4 Chronic pain syndrome; I26.90 Septic pulmonary embolism without acute cor pulmonale; B18.2 Chronic viral hepatitis C; X58.XXXA Exposure to other specified factors, initial encounter; Z87.891 Personal history of nicotine dependence; J18.9 Pneumonia, unspecified organism; Z86.16 Personal history of COVID-19; B95.61 Methicillin susceptible Staphylococcus aureus infection as the cause of diseases classified elsewhere; D61.818 Other pancytopenia; I76 Septic arterial embolism; M46.46 Discitis, unspecified, lumbar region; Z88.6 Allergy status to analgesic agent; M46.26 Osteomyelitis of vertebra, lumbar region; Z88.8 Allergy status to other drugs, medicaments and biological substances; R78.81 Bacteremia; D50.9 Iron deficiency anemia, unspecified; I45.10 Unspecified right bundle-branch block; G06.1 Intraspinal abscess and granuloma; M79.641 Pain in right hand; E87.6 Hypokalemia; F11.90 Opioid use, unspecified, uncomplicated; F17.210 Nicotine dependence, cigarettes, uncomplicated; I33.0 Acute and subacute infective endocarditis; S81.802A Unspecified open wound, left lower leg, initial encounter